=== PATIENT | male | born 1945 | race Caucasian/White ===

== ENCOUNTER 2019-10-09 11:28 | Inpatient (IN) | payer OTHER, MEDICARE, SELFPAY ==
[2019-10-09] VITALS (20 sets, daily range): BP systolic 90–151; BP diastolic 52–82; PULSE 59–89; RESP 11–26; TEMP 37.1–38.8; O2SAT 88–99; BMI 39.9
--- NOTE | 2019-10-09 11:43 | ED_ITS ---
Entered by Eleanor Alvarado, acting as scribe for HPI - General Adult General: Chief complaint: Weakness Stated complaint: weak and sick Time Seen by Provider: 10/09/19 11:43 Source: patient Mode of arrival: ambulatory Limitations: no limitations History of Present Illness: HPI narrative: 74 yo male presents with shortness of breath. pt states this started several days ago. pt states he has had a cough and congestion. pt has had fatigue. pt has a hx of COPD. pt denies any other symptoms at this time. MD complaint: cough, shortness of breath, hx of copd Onset (ago): day(s) Location: chest Radiation: non-radiation Severity: moderate Quality: constant Pain Consistency: constant Relieving factors: none Exacerbating factors: movement and other (cough) Associated symptoms: Reports cough, dyspnea, short of breath, weakness and other (congestion); Deny nausea Treatments prior to arrival: none Review of Systems Const: Reports: fatigue Resp: Reports: shortness of breath, productive cough, wheezing, change in phlegm color and chest congestion GI: Denies: abdominal pain or nausea PFSH ED PFSH: Social History Smoking and tobacco status: former smoker Physical Exam Resp: AUSCULTATION: wheezes and diminished lung sounds Extremity: GENERAL: Yes edema (1 plus bilateral legs) Course Vital Signs: Vital signs: Vital Signs Temperature 98.8 F 10/09/19 11:44 Pulse Rate 69 10/09/19 12:56 Respiratory Rate 20 H 10/09/19 12:56 Blood Pressure 139/69 10/09/19 12:56 Pulse Oximetry 91 10/09/19 12:56 [facility] - General Adult Lab Data: Labs: Lab Results 10/09/19 10/09/19 10/09/19 Range/Units 12:08 12:08 12:20 WBC 11.2 H (4.0-10.0) 10^3/ uL RBC 4.84 (4.1-5.3) 10^6/u L Hgb 14.0 (11.7-16.6) g/dL Hct 42.5 (42.0-52.0) % MCV 87.8 (80-94) fL MCH 28.9 (28.0-34.0) pg MCHC 32.9 (30.0-36.0) g/dL RDW 13.3 (12.1-15.1) % Plt Count 204 (130-400) 10^3/c mm MPV 10.7 H (7.4-10.4) fL Neut % (Auto) 63.8 % Lymph % (Auto) 21.7 % [place] % (Auto) 10.3 % Eos % (Auto) 3.4 % Baso % (Auto) 0.4 % Neut # (Auto) 7.1 (1.8-7.7) 10^3/u L Lymph # (Auto) 2.4 (0.8-4.8) 10^3/u L [place] # (Auto) 1.2 H (0.2-0.9) 10^3/u L Eos # (Auto) 0.4 (0.0-0.8) 10^3/u L Baso # (Auto) 0.0 (0.0-0.1) 10^3/u L Nucleated RBC % (a uto) 0 % Nucleated RBCs # 0.0 /100WBC Specimen Type Arterial Sample Site Radial, right ABG pH 7.42 (7.35-7.45) ABG pCO2 41.8 (35-45) mmHg ABG pO2 59.1 L (80.0-100.0) mmH g ABG HCO3 27.2 H (22-26) mmol/L ABG Base Excess 2.4 H (-2.0-2.0) mmol/ L Jasbir Test Pos Hematocrit 44.0 (42-52) % FiO2 21.0 % Crop Specialist ID drn Sodium 135 L (136-145) mmol/L Potassium 4.0 (3.5-5.1) mmol/L Chloride 94 L (98-107) mmol/L Carbon Dioxide 31 H (22-29) mmol/L Anion Gap 14.0 (5-19) BUN 20 (8-23) mg/dL Creatinine 1.7 H (0.7-1.2) mg/dL Glucose 111 (65-115) mg/dL Calculated Osmolal ity 277 L (285-295) mOsm/k g Lactate (0.5-2.2) mmol/L Calcium 8.7 (8.5-10.5) mg/dL Total Bilirubin 0.8 (0.15-1.2) mg/dL AST 19 (0-40) U/L ALT 16 (0-41) U/L Alkaline Phosphata se 101 (40-130) IU/L NT-Pro-B Natriuret Pep 117 (0-125) pg/mL Total Protein 7.6 (6.6-8.7) g/dL Albumin 3.3 L (3.5-5.2) g/dL Globulin 4.3 (1.3-4.6) g/dL Influenza Type A A g (Negative) POC Influenza B Ag (Negative) 10/09/19 10/09/19 Range/Units 12:29 12:45 WBC (4.0-10.0) 10^3/ uL RBC (4.1-5.3) 10^6/u L Hgb (11.7-16.6) g/dL Hct (42.0-52.0) % MCV (80-94) fL MCH (28.0-34.0) pg MCHC (30.0-36.0) g/dL RDW (12.1-15.1) % Plt Count (130-400) 10^3/c mm MPV (7.4-10.4) fL Neut % (Auto) % Lymph % (Auto) % [place] % (Auto) % Eos % (Auto) % Baso % (Auto) % Neut # (Auto) (1.8-7.7) 10^3/u L Lymph # (Auto) (0.8-4.8) 10^3/u L [place] # (Auto) (0.2-0.9) 10^3/u L Eos # (Auto) (0.0-0.8) 10^3/u L Baso # (Auto) (0.0-0.1) 10^3/u L Nucleated RBC % (a uto) % Nucleated RBCs # /100WBC Specimen Type Sample Site ABG pH (7.35-7.45) ABG pCO2 (35-45) mmHg ABG pO2 (80.0-100.0) mmH g ABG HCO3 (22-26) mmol/L ABG Base Excess (-2.0-2.0) mmol/ L Jasbir Test Hematocrit (42-52) % FiO2 % Crop Specialist ID Sodium (136-145) mmol/L Potassium (3.5-5.1) mmol/L Chloride (98-107) mmol/L Carbon Dioxide (22-29) mmol/L Anion Gap (5-19) BUN (8-23) mg/dL Creatinine (0.7-1.2) mg/dL Glucose (65-115) mg/dL Calculated Osmolal ity (285-295) mOsm/k g Lactate 1.0 (0.5-2.2) mmol/L Calcium (8.5-10.5) mg/dL Total Bilirubin (0.15-1.2) mg/dL AST (0-40) U/L ALT (0-41) U/L Alkaline Phosphata se (40-130) IU/L NT-Pro-B Natriuret Pep (0-125) pg/mL Total Protein (6.6-8.7) g/dL Albumin (3.5-5.2) g/dL Globulin (1.3-4.6) g/dL Influenza Type A A g Negative (Negative) POC Influenza B Ag Negative (Negative) Discharge Plan Discharge Patient Disposition: Home, Self-Care Clinical Impression: Bronchitis Upper respiratory infection Qualifiers: URI type: unspecified URI Qualified Code(s): J06.9 - Acute upper respiratory infection, unspecified Sinusitis Qualifiers: Sinusitis location: other Chronicity: acute Recurrence: non-recurrent Qualified Code(s): J01.80 - Other acute sinusitis Condition: Stable Prescriptions: New Bactrim DS 800-160 mg tablet 1 tab PO DAILY 10 Days Qty: 20 RF: 0 prednisone 10 mg tablets,dose pack See Rx Instructions .ROUTE .COMPLEX Qty: 21 RF: 0 albuterol sulfate 90 mcg/actuation HFA aerosol inhaler 2 inh INHALATION Q6H PRN (Reason: dyspnea) Qty: 8.5 RF: 0 Discharge Orders: Discharge Order (Routine); Ordered 10/09/19 Ordered By: Nick Arceo Referrals: Brandon Rousseau DO [Primary Care Provider] - Coding Level of Care Code ED Shipping Assistant for Chg Fwd Exam Expanded Problem Focused The documentation recorded by the Christiano marie Bridget Annette, accurately reflects the service I personally performed and the decisions made by me, Rita sotelo,Nick Salcedo DO
--- NOTE | 2019-10-09 11:51 | PC.NURSE ---
Pt very short of breath. Coarse crackles and rhonchi noted from a distance. Mask placed on pt.
--- NOTE | 2019-10-09 12:09 | XR_ITS ---
WS: [id number] XR chest 1V portable [id number] REASON FOR EXAM: dyspnea FINDINGS: The cardiac silhouette is not enlarged. A calcified granulomas noted in the left lung base similar to the previous exam June 25, 2019. There is no active pneumonias, pleural effusion fusion, pulmonary edema, or mass effect. The hilum and apices normal. No osseous abnormalities. XR/XR chest 1V portable [id number] IMPRESSION: Negative chest for active pathology.
[2019-10-09 12:35] LABS: Basophils % 0.4 %; Eosinophils # 0.4 10^3/uL (0.0-0.8); Eosinophils % 3.4 %; Hematocrit 42.5 % (42.0-52.0); Lymphocytes # 2.4 10^3/uL (0.8-4.8); Lymphocytes % 21.7 %; Mean Corpuscular HGB Conc 32.9 g/dL (30.0-36.0); Mean Corpuscular Hemoglobin 28.9 pg (28.0-34.0); Mean Corpuscular Volume 87.8 fL (80-94); Mean Platelet Volume 10.7 fL (7.4-10.4); Monocytes # 1.2 10^3/uL (0.2-0.9); Monocytes % 10.3 %; Neutrophils # 7.1 10^3/uL (1.8-7.7); Neutrophils % 63.8 %; Nucleated Red Blood Cells % 0 %; Platelet Count 204 10^3/cmm (130-400); Red Blood Count 4.84 10^6/uL (4.1-5.3); Red Cell Distribution Width 13.3 % (12.1-15.1); White Blood Count 11.2 10^3/uL (4.0-10.0)
[2019-10-09] MEDS: ipratropium-albuterol 3 mL Neb INHALATION ×3 (12:35→20:09)
[2019-10-09] MEDS: sodium chloride 0.9% 500 ML IV (12:42)
[2019-10-09] MEDS: cefTRIAXone 1,000 MG in sodium chloride 0.9% (plus) 50 ML 100 MG IV (12:42)
[2019-10-09 12:51] LABS: ABG PCO2 41.8 mmHg (35-45); ABG PH Result 7.42 (7.35-7.45); Base Excess ABG 2.4 mmol/L (-2.0-2.0); Blood Gas Allen Test Pos; Blood Gas Sample Site Radial, right; Blood Gas Sample Type Arterial; HCO3 ABG 27.2 mmol/L (22-26); PO2 ABG 59.1 mmHg (80.0-100.0)
[2019-10-09 12:57] LABS: Alanine Aminotransferase 16 U/L (0-41); Albumin Level 3.3 g/dL (3.5-5.2); Alkaline Phosphatase 101 IU/L (40-130); Aspartate Amino Transferase 19 U/L (0-40); Blood Urea Nitrogen 20 mg/dL (8-23); Calcium 8.7 mg/dL (8.5-10.5); Carbon Dioxide 31 mmol/L (22-29); Chloride 94 mmol/L (98-107); Globulin 4.3 g/dL (1.3-4.6); Glucose 111 mg/dL (65-115); NT Pro B Type Natriuretic Pept 117 pg/mL (0-125); Osmolality Calculated 277 mOsm/kg (285-295); Sodium 135 mmol/L (136-145); Total Bilirubin 0.8 mg/dL (0.15-1.2); Total Protein 7.6 g/dL (6.6-8.7)
[2019-10-09 13:18] LABS: Influenza A by IFA Negative (Negative); Influenza B by IFA Negative (Negative)
[2019-10-09] MEDS: azithromycin 500 MG in sodium chloride 0.9% 250 ML 250 MG IV (17:08)
--- NOTE | 2019-10-09 17:50 | CTR_ITS ---
PROCEDURE INFORMATION: Exam: CT Chest Without Contrast Exam date and time: 10/09/2019 5:54 PM Age: 74 years old Clinical indication: Shortness of breath and other: Hypoxia; Patient HX: H/o copd; Additional info: Ill appearing, productive cough, hypoxia, SOB TECHNIQUE: Imaging protocol: Computed tomography of the chest without contrast. Total DLP: 1112.72 mGy-cm Radiation optimization: All CT scans at this facility use at least one of these dose optimization techniques: automated exposure control; mA and/or kV adjustment per patient size (includes targeted exams where dose is matched to clinical indication); or iterative reconstruction. COMPARISON: CR XR chest 1V portable [id number] 10/09/2019 12:13 PM FINDINGS: Lungs: Small volume subsegmental patchy ground-glass interstitial lung disease bilaterally with involvement of the posterior segment right upper lobe, bilateral lower lobes, and less significant involvement right middle lobe. Left upper lobe and lingula spared. Rare bullous/bleb to include a thin walled bulla right middle lobe maximum diameter 15 mm with the appearance of chronic infection. Mild peripheral acinar emphysema. Pleural space: No visible pleural effusion or active pleural based disease. Heart: Three-vessel coronary artery disease. Mediastinum: Calcified granulomas most likely from antecedent histoplasmosis. Numerous calcified hilar complexes. 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 Aorta: The thoracic aorta is nonaneurysmal. Moderate arterial sclerotic disease. Lymph nodes: No visible axillary lymphadenopathy. No grossly visible mediastinal or hilar lymphadenopathy although limited assessment due to the lack of intravenous contrast. Liver: Single simple appearing left hepatic lobe cyst. Rare hepatic calcified granuloma. Spleen: Upper abdominal structures within the field of view without visible evidence of active pathologic process. Rare splenic calcified granuloma. Bones/joints: Age-appropriate degenerative changes of the spine. No visible osteolytic or osteoblastic destructive process. Soft tissues: Unremarkable. CT/CT chest wo con [id number] IMPRESSION: 1. Findings consistent with acute usual interstitial pneumonitis involving sub segments of the posterior segment right upper lobe, bilateral lower lobes, and minimal involvement right middle lobe as detailed in text above. 2. Antecedent granulomatous disease. 3. Rare bullous/bleb. 4. Mild peripheral acinar emphysema. 5. Three vessel coronary artery disease. 6. Other chronic and age related findings detailed in text above. Radiation Dose CTDIVOL = (mGy): DLP = 1112.72 (mGy-cm)
--- NOTE | 2019-10-09 17:59 | PM.HP ---
Providers/Chief Complaint Admitting Physician: Haylee Cain MD Primary Care Provider: Brandon Rousseau DO Chief Complaint: productive cough, SOB History of Present Illness Henri Yanes is a 74 year old male with PMHx of COPD, HTN, CAD, Hyperlipidemia, Chronic low back pain; presents from home for evaluation of ongoing productive cough with thick yellow sputum, malaise, hoarseness of voice and shortness of breath. He is not oxygen dependent at baseline. Is a former smoker, quit smoking in 1982. Has a known history of COPD and states that he has some element of chronic productive cough at baseline. He is unsure if the frequency of his cough or sputum production has increased in the past several days but overall he has been feeling quite unwell. He denies having any fever/chills, sick contacts, recent travel including contact with known COVID-19. On initial evaluation in the ER plan was for discharge but patient is quite ill-appearing, has noted hypoxia on ABG, mild leukocytosis and following my examination was noted to have fever of 101.8 F. He is audibly wheezing and coarse throughout on auscultation. He is quite uncomfortable and constantly repositioning on the stretcher. He is very hoarse though he states that this is his baseline. Hoarseness of voice limits history taking; some collateral information obtained from review of medical record though he has not had much in the way of work-up or visits to our facility in the past. He follows up with [facility]. [facility] [place] [facility]. He had an echo done in 06/2018 showing an ejection fraction of 45 to 50% with global left ventricular hypokinesis. He had a negative stress test done in April 2019. While in the ER he received nebulizer treatment, ceftriaxone, azithromycin and 500 mL fluid bolus. Most recent blood pressure during my history taking is 96/55 with a MAP of 68; he has recently voided and his urine is very concentrated so given clinical picture will give an additional 500 mL normal saline bolus. I will also order a CT scan of the chest for further evaluation given ill appearance, high suspicion for respiratory infection; chest x-ray is unremarkable per radiology report. Most recent vital signs and overall clinical picture he meets criteria for sepsis as evidenced by fever, hypoxia, tachypnea. Lactic acid is 1.0, will check prolactin. Influenza screen is negative. Review of Systems General: Reports: other (difficult to obtain due to patient's hoarseness of voice) Const: Reports: change in appetite (decreased appetite), fatigue and malaise; Denies: fever or chills Eyes: Denies: change in vision ENMT: Reports: hoarseness, dry mouth and other; Denies: painful swallowing Card: Denies: chest pain, swelling of feet/ankles or lightheadedness Resp: Reports: productive cough (thick yellow sputum), wheezing and chest congestion; Denies: shortness of breath, stridor or coughing up blood GI: Denies: abdominal pain, nausea or vomiting Musc: Denies: back pain Skin/Breast: Denies: rash Medications/Allergies Home Medications Medication Instructions Recorded Confirmed Last Taken Type albuterol sulfate 2 puff INHALATION QID PRN 10/09/19 10/09/19 Unknown History albuterol sulfate 2.5 mg INHALATION Q6H PRN 10/09/19 10/09/19 Unknown History amlodipine [Norvasc] 10 mg PO DAILY 10/09/19 10/09/19 Unknown History aspirin 81 mg PO DAILY 10/09/19 10/09/19 Unknown History clonidine HCl 0.2 mg PO BEDTIME 10/09/19 10/09/19 Unknown History gabapentin 600 mg PO BEDTIME 10/09/19 10/09/19 Unknown History hydrochlorothiazide 50 mg PO DAILY 10/09/19 10/09/19 Unknown History losartan 100 mg PO DAILY 10/09/19 10/09/19 Unknown History multivitamin [Multiple Vitamins] 1 tab PO DAILY 10/09/19 10/09/19 Unknown History omeprazole 20 mg PO DAILY 10/09/19 10/09/19 Unknown History oxycodone 5 mg PO Q6H PRN 10/09/19 10/09/19 Unknown History potassium chloride 30 meq PO DAILY 10/09/19 10/09/19 Unknown History pravastatin 40 mg PO QPM 10/09/19 10/09/19 Unknown History sildenafil See Rx Instructions .ROUTE .COMPLEX 10/09/19 10/09/19 Unknown History Allergies Allergy/AdvReac Type Severity Reaction Status Date / Time lisinopril Allergy Unknown Unknown Verified 10/09/19 14:30 niacin Allergy Unknown Unknown Verified 10/09/19 14:30 PFSH Acute PFSH: Medical History CAD (coronary artery disease) Chronic back pain COPD (chronic obstructive pulmonary disease) GERD (gastroesophageal reflux disease) HTN (hypertension) Hyperlipidemia Morbid obesity Social History Smoking and tobacco status: former smoker Quit status (tobacco): has quit using tobacco Year quit tobacco: 1982 Lives independently: Yes Vitals/I&O/Wt Last Vital Signs Temp 98.8 F 10/09/19 11:44 Pulse 78 10/09/19 17:28 Resp 15 10/09/19 17:28 BP 125/75 10/09/19 17:28 Pulse Ox 97 10/09/19 17:28 10/09/19 10/09/19 10/09/19 06:59 14:59 22:59 Intake Total 50 / 50 Balance 50 / 50 Weight last 48 hrs Weight 122.47 kg Physical Exam Const: COMMON NORMALS: no apparent distress and oriented x3 GENERAL APPEARANCE: cooperative and ill appearing; not comfortable (continuously shifting on stretcher) NUTRITIONAL APPEARANCE: obese morbidly obese ORIENTATION/CONSCIOUSNESS: Yes awake HENMT: COMMON NORMALS: normocephalic, head/scalp atraumatic and hearing grossly normal bilaterally HEAD & SCALP: normocephalic and atraumatic MOUTH: other (very hoarse voice) Eye: COMMON NORMALS: PERRL, EOMs intact bilaterally and conjunctivae normal CONJUNCTIVA: Yes conjunctivae normal PUPIL: Yes PERRL Neck/C-Spine: COMMON NORMALS: full ROM GENERAL: Yes normal visual inspection and Yes trachea midline Resp: COMMON NORMALS: normal respiratory effort, no retractions, no use of accessory muscles and clear to auscultation bilaterally EFFORT & INSPECTION: Yes able to speak in complete sentences, Yes symmetric chest movement, No tachypneic, Yes actively coughing productive (thick yellow sputum ) and hoarse and No tripod positioning AUSCULTATION: rhonchi throughout and wheezes (audible) Cardio: COMMON NORMALS: regular rate, regular rhythm, S1 normal heart sound, S2 normal heart sound and no murmurs RATE: regular rate RHYTHM: regular rhythm HEART SOUNDS: S1 normal and S2 normal GI: COMMON NORMALS: normal to inspection, nondistended, normoactive bowel sounds, soft to palpation and non-tender INSPECTION: Yes central obesity PALPATION: Yes soft Back/Pelvis: COMMON NORMALS: thoracic and lumbar spine normal to inspection Extremity: COMMON NORMALS: normal to inspection, full ROM and no clubbing, cyanosis or edema; negative for no pedal edema Neuro: COMMON NORMALS: oriented x3, moves all extremities, no focal motor deficits and no sensory deficits noted Psych: COMMON NORMALS: mental status grossly normal, thought process normal, cooperative, affect normal and speech normal SPEECH: Yes normal speech THOUGHT PROCESS: normal thought process Skin: COMMON NORMALS: no rashes or lesions noted, no jaundice, no petechiae and no mottling GENERAL SKIN EXAM: no rashes or lesions noted Sepsis: Is patient septic: No Focused sepsis exam performed: Yes Date exam was performed: 10/09/19 Time exam was performed: 18:14 Data : 10/09/19 12:08 10/09/19 12:08 Micro: Microbiology 10/09/19 12:32 Blood Culture - Preliminary Blood SPECIMEN COLLECTED 10/09/19 12:29 Blood Culture - Preliminary Blood SPECIMEN COLLECTED A&P Assessment and plan (1) Upper respiratory infection: -very hoarse voice clinically, quite ill appearing -CXR noted, negative, will order CT chest for further evaluation given ill appearance, SOB, hypoxia on ABG -received dose of Ceftriaxone and Azithromycin, continue dual treatment for now -f/u blood cx, sputum culture -negative influenza screen, order bacterial antigens, Legionella -denies sick contacts, recent travel, contact with known COVID-19 so no further testing at this time -associated sepsis given fever, hypoxia, ill appearance, tachypnea -close monitoring of respiratory status, supplemental oxygen as needed Status: Acute Qualifiers: URI type: unspecified URI Qualified Code(s): J06.9 - Acute upper respiratory infection, unspecified Code(s): J06.9 - Acute upper respiratory infection, unspecified (2) COPD (chronic obstructive pulmonary disease): -acute COPD exacerbation related to URI as noted above -add steroids, Duonebs PRN - Status: Acute Qualifiers: COPD type: COPD with acute exacerbation Qualified Code(s): J44.1 - Chronic obstructive pulmonary disease with (acute) exacerbation Code(s): J44.9 - Chronic obstructive pulmonary disease, unspecified (3) Chronic back pain: -per med list, is on chronic oxycodone, resume this Status: Acute Qualifiers: Back pain location: low back pain Back pain laterality: unspecified Sciatica presence: unspecified whether sciatica present Qualified Code(s): M54.5 - Low back pain; G89.29 - Other chronic pain Code(s): M54.9 - Dorsalgia, unspecified; G89.29 - Other chronic pain (4) HTN (hypertension): -currently normotensive, borderline low BP in ED, received 500 mL bolus, gave additional 500 mL bolus -continue to monitor vital signs -continue gentle hydration Status: Acute Qualifiers: Hypertension type: essential hypertension Qualified Code(s): I10 - Essential (primary) hypertension Code(s): I10 - Essential (primary) hypertension (5) CAD (coronary artery disease): -has hx of CAD, resume statin, ASA Status: Acute Qualifiers: Coronary Disease-Associated Artery/Lesion type: [place] artery [place] vs. transplanted heart: [place] heart Associated angina: without angina Qualified Code(s): I25.10 - Atherosclerotic heart disease of [place] coronary artery without angina pectoris Code(s): I25.10 - Atherosclerotic heart disease of [place] coronary artery without angina pectoris (6) Hyperlipidemia: -resume statin Status: Acute Qualifiers: Hyperlipidemia type: unspecified Qualified Code(s): E78.5 - Hyperlipidemia, unspecified Code(s): E78.5 - Hyperlipidemia, unspecified (7) Morbid obesity: -BMI-40 kg/m2 Status: Acute Code(s): E66.01 - Morbid (severe) obesity due to excess calories Additional A&P Information -hx of chronic systolic CHF; Echo (06/2018): EF=45-50%, global LV hypokinesis, trace MR, trace TR, trace MS; monitor for fluid overload with IV hydration -former smoker; quit >30 yrs ago -DAMIÁN on CKD unknown stage; unknown baseline Cr but available labs on record indicate prior Cr of 1.6; continue to monitor renal function, hold diuretics, ARB -GERD, resume PPI -cardiac diet as tolerated -fall precautions, PT evaluation -GI ppx with PPI -DVT ppx with heparin -Dispo: home, lives alone -Code status: FULL code Attestations Medical Necessity Statement*: Henri Gonzalez Yanes's hospital stay will require greater than 2 midnights for treatment of upper respiratory infection with associated acute COPD exacerbation and sepsis requiring IV antibiotic treatment, close monitoring of hemodynamic and respiratory status. Time Spent in Patient Care: Greater than 35 minutes (>than 50% of time spent in counselling and/or direct pt care on unit). Coding Level of Care Code Acute Ground Control Approach Technician for Vitaliy Fwd Diagnoses Upper respiratory infection J06.9 URI type: unspecified URI COPD (chronic obstructive pulmonary disease) J44.1 COPD type: COPD with acute exacerbation Chronic back pain M54.5; G89.29 Back pain location: low back pain Back pain laterality: unspecified Sciatica presence: unspecified whether sciatica present HTN (hypertension) I10 Hypertension type: essential hypertension CAD (coronary artery disease) I25.10 Coronary Disease-Associated Artery/Lesion type: [place] artery [place] vs. transplanted heart: [place] heart Associated angina: without angina Hyperlipidemia E78.5 Hyperlipidemia type: unspecified Morbid obesity E66.01 Sepsis Event Note Evaluation Current stage of sepsis: sepsis Possible source: pulmonary Focused Exam Vital Signs Temp Pulse Pulse Resp BP Pulse Ox 10/09/19 18:00 101.8 F H 81 19 H 113/76 88 L 10/09/19 17:28 78 15 125/75 97 10/09/19 14:48 64 18 151/82 91 10/09/19 14:00 91 10/09/19 12:56 69 20 H 139/69 91 10/09/19 12:38 64 10/09/19 12:29 62 18 94 10/09/19 12:11 20 H 93 10/09/19 11:44 98.8 F 67 20 H 93 Respiratory exam: Present rhonchi and wheezes Cardiovascular exam: Present RRR, S1 and S2 Capillary refill: < 3 Seconds Skin exam: normal turgor Date exam was performed: 10/09/19 Time exam was performed: 18:16
[2019-10-09 18:43] LABS: Procalcitonin 0.12 ng/mL (0-0.5)
--- NOTE | 2019-10-09 19:30 | PC.RESP ---
Pt is refusing to wear HHF NC at this time. Pt states I cannot tolerate the blowing in my nose. RN notified.
[2019-10-09] MEDS: heparin 5,000 unit/mL INJ 1 mL 5000 UNIT SUBCUT (20:16)
[2019-10-09] MEDS: sodium chloride 0.9% 1,000 ML 75 ML IV (20:18)
[2019-10-09] MEDS: guaiFENesin 600 mg Tablet PO (20:19)
[2019-10-09] MEDS: sodium chloride 0.9% 1,000 ML 100 ML IV (20:30)
[2019-10-09] MEDS: cloNIDine 0.1 mg Tablet 0.2 MG PO (21:05)
[2019-10-09] MEDS: atorvastatin 40 mg Tablet 20 MG PO (21:05)
[2019-10-09] MEDS: acetaminophen 325 mg Tablet 650 MG PO (21:16)
[2019-10-10] VITALS (20 sets, daily range): BP systolic 91–121; BP diastolic 56–74; PULSE 43–778; RESP 14–22; TEMP 36.5–36.9; O2SAT 91–100
[2019-10-10 04:51] LABS: Basophils % 0.1 %; Hematocrit 41.7 % (42.0-52.0); Hemoglobin 13.6 g/dL (11.7-16.6); Lymphocytes # 1.1 10^3/uL (0.8-4.8); Lymphocytes % 8.3 %; Mean Corpuscular HGB Conc 32.6 g/dL (30.0-36.0); Mean Corpuscular Hemoglobin 28.2 pg (28.0-34.0); Mean Corpuscular Volume 86.5 fL (80-94); Monocytes # 0.3 10^3/uL (0.2-0.9); Monocytes % 2.2 %; Neutrophils # 11.4 10^3/uL (1.8-7.7); Neutrophils % 88.9 %; Nucleated Red Blood Cells % 0 %; Platelet Count 206 10^3/cmm (130-400); Red Blood Count 4.82 10^6/uL (4.1-5.3); Red Cell Distribution Width 13.2 % (12.1-15.1); White Blood Count 12.8 10^3/uL (4.0-10.0)
[2019-10-10 05:10] LABS: Anion Gap 17.1 (5-19); Blood Urea Nitrogen 21 mg/dL (8-23); Calcium 8.3 mg/dL (8.5-10.5); Carbon Dioxide 25 mmol/L (22-29); Chloride 96 mmol/L (98-107); Glucose 212 mg/dL (65-115); Osmolality Calculated 281 mOsm/kg (285-295); Potassium 4.1 mmol/L (3.5-5.1); Sodium 134 mmol/L (136-145)
[2019-10-10] MEDS: aspirin 81 mg Chew Tablet PO (08:40)
[2019-10-10] MEDS: sodium chloride 0.9% 1,000 ML 75 ML IV (08:40)
[2019-10-10] MEDS: guaiFENesin 600 mg Tablet PO ×2 (08:40→18:25)
[2019-10-10] MEDS: multivitamin therapeutic Tablet 1 TAB PO (08:40)
[2019-10-10] MEDS: pantoprazole DR 40 mg Tablet PO (08:40)
[2019-10-10] MEDS: heparin 5,000 unit/mL INJ 1 mL 5000 UNIT SUBCUT ×2 (08:41→21:00)
[2019-10-10] MEDS: ipratropium-albuterol 3 mL Neb INHALATION ×3 (09:46→20:04)
[2019-10-10 12:23] LABS: Add Urine Microscopic? NO
[2019-10-10 12:34] LABS: Bilirubin Urine Neg (NEGATIVE); Blood Urine Neg (Negative); Glucose Urine UA Norm (Normal); Ketones Urine Negative (Negative); Leukocyte Esterase Urine Negative (Negative); Nitrate Urine Negative (Negative); Protein Urine Neg (Negative); Urine Appearance Clear (CLEAR); Urine Color Dark Yellow (Yellow); Urobilinogen Urine Norm (Negative); pH Urine 5 (5-7)
[2019-10-10] MEDS: cefTRIAXone 1,000 MG in sodium chloride 0.9% (plus) 50 ML 100 MG IV (12:46)
--- NOTE | 2019-10-10 13:25 | P.PN_ITS ---
Subjective Subjective: Interval history: Seems to be more stable today in terms of hemodynamics and respiratory status. Currently on RA, afebrile. Required 1:1 sitter due to inability to self maintain oxygen, confusion, high fall risk. Patient seen and examined twice today, more awake this afternoon, still quite hoarse and coarse on auscultation but less ill appearing, is alert and oriented, converse appropriately. Does not remember my visit earlier in the day. Medications: Reviewed: Yes Medication Review Details: Active Medications Generic Name Dose Route Start Last Admin Trade Name Freq PRN Reason Stop Dose Admin Acetaminophen 650 mg 10/09/19 15:57 10/09/19 21:16 Tylenol PO 650 mg Q6H PRN Administration Mild/Mod Pain Or Temp >/= 101 Albuterol/Ipratrop ium 3 ml 10/09/19 21:00 Duoneb INHALATION Q6H.RESPIRATORY P RN SHORTNESS OF KEVIN TH Albuterol/Ipratrop ium 3 ml 10/09/19 16:00 10/10/19 13:09 Duoneb INHALATION Not Given QID.RESPIRATORY S CH Aspirin 81 mg 10/10/19 09:00 10/10/19 08:40 Aspirin Chewable PO 81 mg DAILY KEO Administration Atorvastatin Calci um 20 mg 10/09/19 21:00 10/09/19 21:05 Lipitor PO 20 mg BEDTIME KEO Administration Benzocaine 1 each 10/09/19 18:28 Cepacol MUCOUS MEM Q2H PRN SORE THROAT Benzonatate 100 mg 10/09/19 18:28 Tessalon Pearls PO TID PRN COUGH Clonidine HCl 0.2 mg 10/09/19 21:00 10/09/19 21:05 Catapres PO 0.2 mg BEDTIME KEO Administration Guaifenesin 600 mg 10/09/19 18:28 10/10/19 08:40 Mucinex PO 600 mg BID KEO Administration Heparin Sodium (Be ef Lung) 5,000 unit 10/09/19 18:28 10/10/19 08:41 Heparin SUBCUT 5,000 unit Q12H KEO Administration Azithromycin 500 m g/ Sodium 250 mls @ 250 mls /hr 10/09/19 17:15 10/09/19 18:10 Chloride IV Infused Q24H KEO Infusion Protocol Sodium Chloride 1,000 mls @ 75 ml s/hr 10/09/19 18:28 10/10/19 08:40 Sodium Chloride 0.9% IV 75 mls/hr .[id number] KEO Administration Ceftriaxone Sodium 1,000 mg/ 50 mls @ 100 mls/ hr 10/10/19 12:45 10/10/19 12:46 Sodium Chloride IV 100 mls/hr Q24H KEO Administration Protocol Methylprednisolone Sodium Succinate 60 mg 10/09/19 18:30 10/10/19 12:46 Solu-Medrol IVP 60 mg Q6H KEO Administration Morphine Sulfate 2 mg 10/09/19 18:28 Morphine IVP Q4H PRN SEVERE PAIN Multivitamins Ther apeutic 1 tab 10/10/19 09:00 10/10/19 08:40 Multivitamin Tab PO 1 tab DAILY KEO Administration Ondansetron HCl 4 mg 10/09/19 15:57 Zofran IVP Q6H PRN NAUSEA AND VOMITI NG Oxycodone HCl 5 mg 10/09/19 18:28 Oxycodone Ir PO Q6H PRN Pain Pantoprazole [place] m 40 mg 10/10/19 09:00 10/10/19 08:40 Protonix PO 40 mg DAILY KEO Administration Potassium Chloride 30 meq 10/10/19 09:00 10/10/19 08:40 Klor-Con 10 PO 30 meq DAILY KEO Administration lisinopril Allergy (Unknown, Verified 10/09/19 14:30) Unknown niacin Allergy (Unknown, Verified 10/09/19 14:30) Unknown Vitals/I&O/Wt Last Vital Signs Temp 98.4 F 10/10/19 08:00 Pulse 63 10/10/19 12:00 Resp 20 H 10/10/19 12:00 BP 115/74 10/10/19 10:00 Pulse Ox 98 10/10/19 12:00 10/09/19 10/10/19 10/10/19 22:59 06:59 14:59 Intake Total 490 / 1040 1000 / 2040 1647.5 / 1647.5 Output Total 350 / 350 Balance 490 / 1040 1000 / 2040 1297.5 / 1297.5 Weight last 48 hrs Weight 122.47 kg Physical Exam Const: COMMON NORMALS: no apparent distress and oriented x3 GENERAL APPEARANCE: cooperative, comfortable and ill appearing (less so today) NUTRITIONAL APPEARANCE: obese morbidly obese ORIENTATION/CONSCIOUSNESS: Yes awake HENMT: COMMON NORMALS: normocephalic, head/scalp atraumatic and hearing grossly normal bilaterally HEAD & SCALP: normocephalic and atraumatic MOUTH: other (very hoarse voice) Eye: COMMON NORMALS: PERRL, EOMs intact bilaterally and conjunctivae normal CONJUNCTIVA: Yes conjunctivae normal PUPIL: Yes PERRL Neck/C-Spine: COMMON NORMALS: full ROM GENERAL: Yes normal visual inspection and Yes trachea midline Resp: COMMON NORMALS: normal respiratory effort, no retractions and no use of accessory muscles EFFORT & INSPECTION: Yes able to speak in complete sentences, Yes symmetric chest movement, No tachypneic, Yes actively coughing productive (thick yellow sputum ) and hoarse and No tripod positioning AUSCULTATION: rhonchi throughout and wheezes (audible) OTHER: -on RA, saturating at 97% Cardio: COMMON NORMALS: regular rate, regular rhythm, S1 normal heart sound, S2 normal heart sound and no murmurs RATE: regular rate RHYTHM: regular rhythm HEART SOUNDS: S1 normal and S2 normal GI: COMMON NORMALS: normal to inspection, nondistended, normoactive bowel sounds, soft to palpation and non-tender INSPECTION: Yes central obesity PALPATION: Yes soft Back/Pelvis: COMMON NORMALS: thoracic and lumbar spine normal to inspection Extremity: COMMON NORMALS: normal to inspection, full ROM and no clubbing, cyanosis or edema; negative for no pedal edema Neuro: COMMON NORMALS: oriented x3, moves all extremities, no focal motor deficits and no sensory deficits noted Psych: COMMON NORMALS: mental status grossly normal, thought process normal, cooperative, affect normal and speech normal SPEECH: Yes normal speech TH OUGHT PROCESS: normal thought process Skin: COMMON NORMALS: no rashes or lesions noted, no jaundice, no petechiae and no mottling GENERAL SKIN EXAM: no rashes or lesions noted Data : 10/10/19 04:15 10/10/19 04:15 Micro: Microbiology 10/09/19 12:32 Blood Culture - Preliminary Blood NEGATIVE TO DATE 10/09/19 12:29 Blood Culture - Preliminary Blood NEGATIVE TO DATE 10/09/19 20:07 Gram Stain - Final Sputum - Expectorated Sputum A&P Assessment and plan (1) Upper respiratory infection: -very hoarse voice clinically, quite ill appearing -CXR noted, negative, CT chest done showing bilateral pneumonitis in background of emphysema -continue Ceftriaxone and Azithromycin -blood cx: prelim negative -sputum culture pending, gram stain growing GPC and GPRs -negative influenza screen, pending bacterial antigens, Legionella -denies sick contacts, recent travel, contact with known COVID-19 so no further testing at this time -associated sepsis given fever, hypoxia, ill appearance, tachypnea -close monitoring of respiratory status, supplemental oxygen as needed Status: Acute Qualifiers: URI type: unspecified URI Qualified Code(s): J06.9 - Acute upper respiratory infection, unspecified Code(s): J06.9 - Acute upper respiratory infection, unspecified (2) COPD (chronic obstructive pulmonary disease): -acute COPD exacerbation related to bilateral pneumonitis as noted above -on steroids, Duonebs PRN Status: Acute Qualifiers: COPD type: COPD with acute exacerbation Qualified Code(s): J44.1 - Chronic obstructive pulmonary disease with (acute) exacerbation Code(s): J44.9 - Chronic obstructive pulmonary disease, unspecified (3) Chronic back pain: -per med list, is on chronic oxycodone Status: Acute Qualifiers: Back pain laterality: unspecified Back pain location: low back pain Sciatica presence: unspecified whether sciatica present Qualified Code(s): M54.5 - Low back pain; G89.29 - Other chronic pain Code(s): M54.9 - Dorsalgia, unspecified; G89.29 - Other chronic pain (4) HTN (hypertension): -currently normotensive, borderline low BP in ED, received 500 mL bolus, gave additional 500 mL bolus -continue to monitor vital signs -continue gentle hydration Status: Acute Qualifiers: Hypertension type: essential hypertension Qualified Code(s): I10 - Essential (primary) hypertension Code(s): I10 - Essential (primary) hypertension (5) CAD (coronary artery disease): -has hx of CAD, continue statin, ASA Status: Acute Qualifiers: Associated angina: without angina Coronary Disease-Associated Artery/Lesion type: [place] artery [place] vs. transplanted heart: [place] heart Qualified Code(s): I25.10 - Atherosclerotic heart disease of [place] coronary artery without angina pectoris Code(s): I25.10 - Atherosclerotic heart disease of [place] coronary artery without angina pectoris (6) Hyperlipidemia: -continue statin Status: Acute Qualifiers: Hyperlipidemia type: unspecified Qualified Code(s): E78.5 - Hyperlipidemia, unspecified Code(s): E78.5 - Hyperlipidemia, unspecified (7) Morbid obesity: -BMI-40 kg/m2 Status: Acute Code(s): E66.01 - Morbid (severe) obesity due to excess calories Additional A&P Information -hx of chronic systolic CHF; Echo (06/2018): EF=45-50%, global LV hypokinesis, trace MR, trace TR, trace [place]; monitor for fluid overload with IV hydration -former smoker; quit >30 yrs ago -DAMIÁN on CKD unknown stage; unknown baseline Cr but available labs on record indicate prior Cr of 1.6; continue to monitor renal function, hold diuretics, ARB -GERD, on PPI -Altered mental status; requiring 1:1 monitoring -cardiac diet as tolerated -fall precautions, PT evaluation appreciated; HEP recommended -GI ppx with PPI -DVT ppx with heparin -Dispo: home, lives alone -Code status: FULL code -continue ICU care due to need for close monitoring of hemodynamic and respiratory status Attestations Medical Necessity Statement*: Patient requires hospitalization for continued management of bilateral pneumonitis, acute COPD exacerbation and noted altered mental status; on IV antibiotics and IV steroids with need for continued m onitoring of hemodynamic and respiratory status. Time Spent in Patient Care: Greater than 35 minutes (>than 50% of time spent in counselling and/or direct pt care on unit) . Coding Level of Care Code Acute Staff Genetic Counselor for [facility] Fwd Exam Comprehensive Diagnoses Upper respiratory infection J06.9 URI type: unspecified URI COPD (chronic obstructive pulmonary disease) J44.1 COPD type: COPD with acute exacerbation Chronic back pain M54.5; G89.29 Back pain laterality: unspecified Back pain location: low back pain Sciatica presence: unspecified whether sciatica present HTN (hypertension) I10 Hypertension type: essential hypertension CAD (coronary artery disease) I25.10 Associated angina: without angina Coronary Disease-Associated Artery/Lesion type: [place] artery [place] vs. transplanted heart: [place] heart Hyperlipidemia E78.5 Hyperlipidemia type: unspecified Morbid obesity E66.01
--- NOTE | 2019-10-10 15:32 | PC.OT ---
OT note: Pt completed OT screening. He was able to complete bed mobility, donning and doffing socks, washing hands standing at sink and got back into bed without physical assistance. Verbal cues provided and education regarding keeping wrist bands and IV on as pt asked are you going to take these off? Pt with some confusion but oriented to self and able to follow 1 step directions. Discussed with RN who reported pt's reported the patient often gets confused when he gets sick. No further OT recommended at this time.
[2019-10-10] MEDS: azithromycin 500 MG in sodium chloride 0.9% 250 ML 250 MG IV (18:24)
[2019-10-10] MEDS: cloNIDine 0.1 mg Tablet 0.2 MG PO (21:01)
[2019-10-10] MEDS: atorvastatin 40 mg Tablet 20 MG PO (21:01)
[2019-10-10] MEDS: oxyCODONE 5 mg IR Tab/Cap PO (21:05)
[2019-10-11] VITALS (19 sets, daily range): BP systolic 98–147; BP diastolic 54–80; PULSE 51–90; RESP 14–20; TEMP 36.2–36.6; O2SAT 95–100
[2019-10-11] MEDS: sodium chloride 0.9% 1,000 ML 75 ML IV (00:36)
[2019-10-11] MEDS: gabapentin 300 mg Capsule 600 MG PO ×2 (00:36→21:58)
--- NOTE | 2019-10-11 00:55 | PC.NURSE ---
Pt requesting his home gabapentin dose for sleep. Reports he does not sleep without it. Pt has been alert and oriented x4. Telephone orders received from Dr. Pérez to resume home med.
[2019-10-11 04:41] LABS: Basophils % 0.1 %; Hematocrit 37.8 % (42.0-52.0); Hemoglobin 12.4 g/dL (11.7-16.6); Lymphocytes # 1.3 10^3/uL (0.8-4.8); Lymphocytes % 7.3 %; Mean Corpuscular HGB Conc 32.8 g/dL (30.0-36.0); Mean Corpuscular Hemoglobin 28.5 pg (28.0-34.0); Mean Corpuscular Volume 86.9 fL (80-94); Mean Platelet Volume 11.2 fL (7.4-10.4); Monocytes # 0.6 10^3/uL (0.2-0.9); Monocytes % 3.4 %; Neutrophils % 88.6 %; Nucleated Red Blood Cells % 0 %; Platelet Count 209 10^3/cmm (130-400); Red Blood Count 4.35 10^6/uL (4.1-5.3); Red Cell Distribution Width 12.9 % (12.1-15.1)
[2019-10-11 05:04] LABS: Blood Urea Nitrogen 35 mg/dL (8-23); Calcium 8.7 mg/dL (8.5-10.5); Carbon Dioxide 23 mmol/L (22-29); Chloride 100 mmol/L (98-107); Glucose 221 mg/dL (65-115); Osmolality Calculated 286 mOsm/kg (285-295); Sodium 136 mmol/L (136-145)
[2019-10-11] MEDS: guaiFENesin 600 mg Tablet PO ×2 (08:45→17:56)
[2019-10-11] MEDS: aspirin 81 mg Chew Tablet PO (08:45)
[2019-10-11] MEDS: multivitamin therapeutic Tablet 1 TAB PO (08:45)
[2019-10-11] MEDS: heparin 5,000 unit/mL INJ 1 mL 5000 UNIT SUBCUT ×2 (08:46→22:00)
[2019-10-11] MEDS: pantoprazole DR 40 mg Tablet PO (08:46)
[2019-10-11] MEDS: ipratropium-albuterol 3 mL Neb INHALATION ×4 (08:55→21:08)
--- NOTE | 2019-10-11 10:06 | P.PN_ITS ---
Subjective Subjective: Interval history: Has been afebrile, hemodynamically stable, had 450 mL urine output overnight. Noted increased leukocytosis which is likely steroid induced. On RA currently. Remains hoarse but is alert, oriented x 3, answers questions appropriately. Discussed disposition and he would like to go to rehab, case management working on this. Will transfer to floor for continued care. Medications: Reviewed: Yes Medication Review Details: Active Medications Generic Name Dose Route Start Last Admin Trade Name Freq PRN Reason Stop Dose Admin Acetaminophen 650 mg 10/09/19 15:57 10/09/19 21:16 Tylenol PO 650 mg Q6H PRN Administration Mild/Mod Pain Or Temp >/= 101 Albuterol/Ipratrop ium 3 ml 10/09/19 21:00 Duoneb INHALATION Q6H.RESPIRATORY P RN SHORTNESS OF KEVIN TH Albuterol/Ipratrop ium 3 ml 10/09/19 16:00 10/11/19 08:55 Duoneb INHALATION 3 ml QID.RESPIRATORY S CH Administration Aspirin 81 mg 10/10/19 09:00 10/11/19 08:45 Aspirin Chewable PO 81 mg DAILY KEO Administration Atorvastatin Calci um 20 mg 10/09/19 21:00 10/10/19 21:01 Lipitor PO 20 mg BEDTIME KEO Administration Benzocaine 1 each 10/09/19 18:28 Cepacol MUCOUS MEM Q2H PRN SORE THROAT Benzonatate 100 mg 10/09/19 18:28 Tessalon Pearls PO TID PRN COUGH Clonidine HCl 0.2 mg 10/09/19 21:00 10/10/19 21:01 Catapres PO 0.2 mg BEDTIME KEO Administration Gabapentin 600 mg 10/11/19 00:30 10/11/19 00:36 Neurontin PO 600 mg BEDTIME KEO Administration Guaifenesin 600 mg 10/09/19 18:28 10/11/19 08:45 Mucinex PO 600 mg BID KEO Administration Heparin Sodium (Be ef Lung) 5,000 unit 10/09/19 18:28 10/11/19 08:46 Heparin SUBCUT 5,000 unit Q12H KEO Administration Azithromycin 500 m g/ Sodium 250 mls @ 250 mls /hr 10/09/19 17:15 10/10/19 19:24 Chloride IV Infused Q24H KEO Infusion Protocol Sodium Chloride 1,000 mls @ 75 ml s/hr 10/09/19 18:28 10/11/19 00:36 Sodium Chloride 0.9% IV 75 mls/hr .[id number] KEO Administration Ceftriaxone Sodium 1,000 mg/ 50 mls @ 100 mls/ hr 10/10/19 12:45 10/10/19 12:46 Sodium Chloride IV 100 mls/hr Q24H KEO Administration Protocol Methylprednisolone Sodium Succinate 40 mg 10/11/19 00:30 10/11/19 08:45 Solu-Medrol IVP 40 mg Q6H KEO Administration Morphine Sulfate 2 mg 10/09/19 18:28 Morphine IVP Q4H PRN SEVERE PAIN Multivitamins Ther apeutic 1 tab 10/10/19 09:00 10/11/19 08:45 Multivitamin Tab PO 1 tab DAILY KEO Administration Ondansetron HCl 4 mg 10/09/19 15:57 Zofran IVP Q6H PRN NAUSEA AND VOMITI NG Oxycodone HCl 5 mg 10/09/19 18:28 10/10/19 21:05 Oxycodone Ir PO 5 mg Q6H PRN Administration Pain Pantoprazole [place] m 40 mg 10/10/19 09:00 10/11/19 08:46 Protonix PO 40 mg DAILY KEO Administration Potassium Chloride 30 meq 10/10/19 09:00 10/11/19 08:45 Klor-Con 10 PO 30 meq DAILY KEO Administration lisinopril Allergy (Unknown, Verified 10/09/19 14:30) Unknown niacin Allergy (Unknown, Verified 10/09/19 14:30) Unknown Vitals/I&O/Wt Last Vital Signs Temp 97.8 F 10/11/19 04:00 Pulse 77 10/11/19 08:54 Resp 18 10/11/19 08:54 BP 147/80 10/11/19 08:00 Pulse Ox 98 10/11/19 08:54 10/10/19 10/11/19 10/11/19 22:59 06:59 14:59 Intake Total 1730 / 3377.5 120 / 3497.5 250 / 250 Output Total 400 / 750 650 / 650 Balance 1330 / 2627.5 120 / 2747.5 -400 / -400 Weight last 48 hrs Weight 122.47 kg Physical Exam 2 Const: COMMON NORMALS: no apparent distress and oriented x3 GENERAL APPEARANCE: cooperative and comfortable NUTRITIONAL APPEARANCE: obese morbidly obese ORIENTATION/CONSCIOUSNESS: Yes awake HENMT: COMMON NORMALS: normocephalic, head/scalp atraumatic and hearing grossly normal bilaterally HEAD & SCALP: normocephalic and atraumatic MOUTH: other (very hoarse voice) Eye: COMMON NORMALS: PERRL, EOMs intact bilaterally and conjunctivae normal CONJUNCTIVA: Yes conjunctivae normal PUPIL: Yes PERRL Neck/C-Spine: COMMON NORMALS: full ROM GENERAL: Yes normal visual inspection and Yes trachea midline Resp: COMMON NORMALS: normal respiratory effort, no retractions and no use of accessory muscles EFFORT & INSPECTION: Yes able to speak in complete s entences, Yes symmetric chest movement, No tachypneic, Yes actively coughing productive (thick yellow sputum ) and hoarse and No tripod positioning AUSCULTATION: rhonchi throughout and wheezes (audible) OTHER: -on RA, saturating at 97% Cardio: COMMON NORMALS: regular rate, regular rhythm, S1 normal heart sound, S2 normal heart sound and no murmurs RATE: regular rate RHYTHM: regular rhythm HEART SOUNDS: S1 normal and S2 normal GI: COMMON NORMALS: normal to inspection, nondistended, normoactive bowel sounds, soft to palpation and non-tender INSPECTION: Yes central obesity PALPATION: Yes soft Back/Pelvis: COMMON NORMALS: thoracic and lumbar spine normal to inspection Extremity: COMMON NORMALS: normal to inspection, full ROM and no clubbing, cyanosis or edema; negative for no pedal edema Neuro: COMMON NORMALS: oriented x3, moves all extremities, no focal motor deficits and no sensory deficits noted Psych: COMMON NORMALS: mental status grossly normal, thought process normal, cooperative, affect normal and speech normal SPEECH: Yes normal speech THOUGHT PROCESS: normal thought process Skin: COMMON NORMALS: no rashes or lesions noted, no jaundice, no petechiae and no mottling GENERAL SKIN EXAM: no rashes or lesions noted Data : 10/11/19 03:23 10/11/19 03:23 Micro: Microbiology 10/09/19 20:07 Gram Stain - Final Sputum - Expectorated Sputum Sputum Culture - Preliminary 10/10/19 11:58 Legionella Urinary Antigen - Final Urine,Voided Bacterial Antigens - Final 10/09/19 12:32 Blood Culture - Preliminary Blood NEGATIVE TO DATE 10/09/19 12:29 Blood Culture - Preliminary Blood NEGATIVE TO DATE A&P Assessment and plan (1) Upper respiratory infection: -very hoarse voice clinically, quite ill appearing -CXR noted, negative, CT chest done showing bilateral pneumonitis in background of emphysema -continue Ceftriaxone and Azithromycin (day 3) -blood cx: prelim negative -sputum culture prelim mixed peter, gram stain growing GPC and GPRs -negative influenza screen, bacterial antigens, Legionella -denies sick contacts, recent travel, contact with known COVID-19 so no further testing at this time -associated sepsis given fever, hypoxia, ill appearance, tachypnea. Sepsis has resolved given hemodynamic stability, no fever x > 24 hrs, RR appropriate, on RA -close monitoring of respiratory status, supplemental oxygen as needed Status: Acute Qualifiers: URI type: unspecified URI Qualified Code(s): J06.9 - Acute upper respiratory infection, unspecified Code(s): J06.9 - Acute upper respiratory infection, unspecified (2) COPD (chronic obstructive pulmonary disease): -acute COPD exacerbation related to bilateral pneumonitis as noted above -on steroids, Duonebs PRN Status: Acute Qualifiers: COPD type: COPD with acute exacerbation Qualified Code(s): J44.1 - Chronic obstructive pulmonary disease with (acute) exacerbation Code(s): J44.9 - Chronic obstructive pulmonary disease, unspecified (3) Chronic back pain: -per med list, is on chronic oxycodone Status: Acute Qualifiers: Back pain laterality: unspecified Back pain location: low back pain Sciatica presence: unspecified whether sciatica present Qualified Code(s): M54.5 - Low back pain; G89.29 - Other chronic pain Code(s): M54.9 - Dorsalgia, unspecified; G89.29 - Other chronic pain (4) HTN (hypertension): -currently normotensive, borderline low BP in ED, received 500 mL bolus, gave additional 500 mL bolus -continue to monitor vital signs -d/c IVF as has good oral intake; encourage oral hydration Status: Acute Qualifiers: Hypertension type: essential hypertension Qualified Code(s): I10 - Essential (primary) hypertension Code(s): I10 - Essential (primary) hypertension (5) CAD (coronary artery disease): -has hx of CAD, continue statin, ASA Status: Acute Qualifiers: Associated angina: without angina Coronary Disease-Associated Artery/Lesion type: [place] artery [place] vs. transplanted heart: [place] heart Qualified Code(s): I25.10 - Atherosclerotic heart disease of [place] coronary artery without angina pectoris Code(s): I25.10 - Atherosclerotic heart disease of [place] coronary artery without angina pectoris (6) Hyperlipidemia: -continue statin Status: Acute Qualifiers: Hyperlipidemia type: unspecified Qualified Code(s): E78.5 - Hyperlipidemia, unspecified Code(s): E78.5 - Hyperlipidemia, unspecified (7) Morbid obesity: -BMI-40 kg/m2 Status: Acute Code(s): E66.01 - Morbid (severe) obesity due to excess calories Additional A&P Information -hx of chronic systolic CHF; Echo (06/2018): EF=45-50%, global LV hypokinesis, trace [place], trace [place], trace [place]; monitor for fluid overload with IV hydration -former smoker; quit >30 yrs ago -DAMIÁN on CKD unknown stage; unknown baseline Cr but available labs on record indicate prior Cr of 1.6; continue to monitor renal function, may consider resuming diuretics, ARB tomorrow if stable BP, renal function -GERD, on PPI -Altered mental status resolved, off 1:1 monitoring -cardiac diet as tolerated -fall precautions, PT evaluation appreciated; HEP recommended -GI ppx with PPI -DVT ppx with heparin -Dispo: SNF -Code status: FULL code -transfer to floor Attestations Medical Necessity Statement*: Patient requires hospitalization for continued treatment of pneumonia, on IV antibiotics. Time Spent in Patient Care: 16 - 35 minutes (>than 50% of time spent in counselling and/or direct pt care on unit) . Coding Level of Care Code Acute Developer Relations Manager for [facility] Fwd Exam Comprehensive Diagnoses Upper respiratory infection J06.9 URI type: unspecified URI COPD (chronic obstructive pulmonary disease) J44.1 COPD type: COPD with acute exacerbation Chronic back pain M54.5; G89.29 Back pain laterality: unspecified Back pain location: low back pain Sciatica presence: unspecified whether sciatica present HTN (hypertension) I10 Hypertension type: essential hypertension CAD (coronary artery disease) I25.10 Associated angina: without angina Coronary Disease-Associated Artery/Lesion type: [place] artery [place] vs. transplanted heart: [place] heart Hyperlipidemia E78.5 Hyperlipidemia type: unspecified Morbid obesity E66.01
[2019-10-11] MEDS: cefTRIAXone 1,000 MG in sodium chloride 0.9% (plus) 50 ML 100 MG IV (12:54)
[2019-10-11] MEDS: azithromycin 500 MG in sodium chloride 0.9% 250 ML 250 MG IV (17:57)
[2019-10-11] MEDS: oxyCODONE 5 mg IR Tab/Cap PO (17:59)
[2019-10-11 18:43] LABS: Oxygen Device RA
[2019-10-11] MEDS: predniSONE 20 mg Tablet 60 MG PO (21:58)
[2019-10-11] MEDS: atorvastatin 40 mg Tablet 20 MG PO (21:58)
[2019-10-11] MEDS: cloNIDine 0.1 mg Tablet 0.2 MG PO (21:58)
[2019-10-12] VITALS (15 sets, daily range): BP systolic 132–178; BP diastolic 65–88; PULSE 51–78; RESP 17–22; TEMP 36.4–37; O2SAT 95–98
[2019-10-12] MEDS: oxyCODONE 5 mg IR Tab/Cap PO ×2 (00:04→11:37)
[2019-10-12] MEDS: benzonatate 100 mg Capsule PO ×3 (00:04→20:02)
[2019-10-12 05:46] LABS: Basophils % 0.1 %; Hematocrit 37.4 % (42.0-52.0); Hemoglobin 12.2 g/dL (11.7-16.6); Lymphocytes # 1.3 10^3/uL (0.8-4.8); Lymphocytes % 7.4 %; Mean Corpuscular HGB Conc 32.6 g/dL (30.0-36.0); Mean Corpuscular Hemoglobin 28.2 pg (28.0-34.0); Mean Corpuscular Volume 86.6 fL (80-94); Monocytes # 0.6 10^3/uL (0.2-0.9); Monocytes % 3.2 %; Neutrophils # 15.5 10^3/uL (1.8-7.7); Neutrophils % 88.4 %; Nucleated Red Blood Cells % 0 %; Platelet Count 255 10^3/cmm (130-400); Red Blood Count 4.32 10^6/uL (4.1-5.3); Red Cell Distribution Width 13.1 % (12.1-15.1); White Blood Count 17.6 10^3/uL (4.0-10.0)
[2019-10-12 06:02] LABS: Anion Gap 16.5 (5-19); Blood Urea Nitrogen 34 mg/dL (8-23); Calcium 8.8 mg/dL (8.5-10.5); Carbon Dioxide 24 mmol/L (22-29); Chloride 102 mmol/L (98-107); Glucose 214 mg/dL (65-115); Osmolality Calculated 290 mOsm/kg (285-295); Potassium 4.5 mmol/L (3.5-5.1); Sodium 138 mmol/L (136-145)
--- NOTE | 2019-10-12 08:56 | PM.PN ---
Subjective Subjective: Interval history: AM labs noted, decreasing leukocytosis, likely steroid induced. VSS, remains on RA. Patient seen and examined, in good spirits, productive cough and hoarseness persists. Gradually improving. Medications: Reviewed: Yes Medication Review Details: Active Medications Generic Name Dose Route Start Last Admin Trade Name Freq PRN Reason Stop Dose Admin Acetaminophen 650 mg 10/09/19 15:57 10/09/19 21:16 Tylenol PO 650 mg Q6H PRN Administration Mild/Mod Pain Or Temp >/= 101 Albuterol/Ipratrop ium 3 ml 10/09/19 21:00 Duoneb INHALATION Q6H.RESPIRATORY P RN SHORTNESS OF KEVIN TH Albuterol/Ipratrop ium 3 ml 10/09/19 16:00 10/11/19 21:08 Duoneb INHALATION 3 ml QID.RESPIRATORY S CH Administration Aspirin 81 mg 10/10/19 09:00 10/11/19 08:45 Aspirin Chewable PO 81 mg DAILY KEO Administration Atorvastatin Calci um 20 mg 10/09/19 21:00 10/11/19 21:58 Lipitor PO 20 mg BEDTIME KEO Administration Benzocaine 1 each 10/09/19 18:28 Cepacol MUCOUS MEM Q2H PRN SORE THROAT Benzonatate 100 mg 10/09/19 18:28 10/12/19 00:04 Tessalon Pearls PO 100 mg TID PRN Administration COUGH Clonidine HCl 0.2 mg 10/09/19 21:00 10/11/19 21:58 Catapres PO 0.2 mg BEDTIME KEO Administration Gabapentin 600 mg 10/11/19 00:30 10/11/19 21:58 Neurontin PO 600 mg BEDTIME KEO Administration Guaifenesin 600 mg 10/09/19 18:28 10/11/19 17:56 Mucinex PO 600 mg BID KEO Administration Heparin Sodium (Be ef Lung) 5,000 unit 10/09/19 18:28 10/12/19 08:00 Heparin SUBCUT Not Given Q12H KEO Azithromycin 500 m g/ Sodium 250 mls @ 250 mls /hr 10/09/19 17:15 10/12/19 08:01 Chloride IV Infused Q24H KEO Infusion Protocol Ceftriaxone Sodium 1,000 mg/ 50 mls @ 100 mls/ hr 10/10/19 12:45 10/11/19 17:42 Sodium Chloride IV Infused Q24H KEO Infusion Protocol Morphine Sulfate 2 mg 10/09/19 18:28 Morphine IVP Q4H PRN SEVERE PAIN Multivitamins Ther apeutic 1 tab 10/10/19 09:00 10/11/19 08:45 Multivitamin Tab PO 1 tab DAILY KEO Administration Ondansetron HCl 4 mg 10/09/19 15:57 Zofran IVP Q6H PRN NAUSEA AND VOMITI NG Oxycodone HCl 5 mg 10/09/19 18:28 10/12/19 00:04 Oxycodone Ir PO 5 mg Q6H PRN Administration Pain Pantoprazole Sodiu m 40 mg 10/10/19 09:00 10/11/19 08:46 Protonix PO 40 mg DAILY KEO Administration Potassium Chloride 30 meq 10/10/19 09:00 10/11/19 08:45 Klor-Con 10 PO 30 meq DAILY KEO Administration Prednisone 60 mg 10/11/19 21:00 10/11/19 21:58 Prednisone PO 60 mg DAILY KEO Administration lisinopril Allergy (Unknown, Verified 10/09/19 14:30) Unknown niacin Allergy (Unknown, Verified 10/09/19 14:30) Unknown Vitals/I&O/Wt Last Vital Signs Temp 98.6 F 10/12/19 07:34 Pulse 54 L 10/12/19 07:34 Resp 18 10/12/19 07:34 BP 132/74 10/12/19 07:34 Pulse Ox 96 10/12/19 07:34 10/11/19 10/12/19 10/12/19 22:59 06:59 14:59 Intake Total 410 / 910 200 / 1110 250 / 250 Balance 410 / 260 200 / 460 250 / 250 Physical Exam Const: COMMON NORMALS: no apparent distress and oriented x3 GENERAL APPEARANCE: cooperative and comfortable NUTRITIONAL APPEARANCE: obese morbidly obese ORIENTATION/CONSCIOUSNESS: Yes awake HENMT: COMMON NORMALS: normocephalic, head/scalp atraumatic and hearing grossly normal bilaterally HEAD & SCALP: normocephalic and atraumatic MOUTH: other (very hoarse voice) Eye: COMMON NORMALS: PERRL, EOMs intact bilaterally and conjunctivae normal CONJUNCTIVA: Yes conjunctivae normal PUPIL: Yes PERRL Neck/C-Spine: COMMON NORMALS: full ROM GENERAL: Yes normal visual inspection and Yes trachea midline Resp: COMMON NORMALS: normal respiratory effort, no retractions and no use of accessory muscles EFFORT & INSPECTION: Yes able to speak in complete sentences, Yes symmetric chest movement, No tachypneic, Yes actively coughing productive (thick yellow sputum ) and hoarse and No tripod positioning AUSCULTATION: rhonchi throughout and wheezes (audible) OTHER: -on RA, saturating at 97% Cardio: COMMON NORMALS: regular rate, regular rhythm, S1 normal heart sound, S2 normal heart sound and no murmurs RATE: regular rate RHYTHM: regular rhythm HEART SOUNDS: S1 normal and S2 normal GI: COMMON NORMALS: normal to inspection, nondistended, normoactive bowel sounds, soft to palpation and non-tender INSPECTION: Yes central obesity PALPATION: Yes soft Back/Pelvis: COMMON NORMALS: thoracic and lumbar spine normal to inspection Extremity: COMMON NORMALS: normal to inspection, full ROM and no clubbing, cyanosis or edema; negative for no pedal edema Neuro: COMMON NORMALS: oriented x3, moves all extremities, no focal motor deficits and no sensory deficits noted Psych: COMMON NORMALS: mental status grossly normal, thought process normal, cooperative, affect normal and speech normal SPEECH: Yes normal speech THOUGHT PROCESS: normal thought process Skin: COMMON NORMALS: no rashes or lesions noted, no jaundice, no petechiae and no mottling GENERAL SKIN EXAM: no rashes or lesions noted Data : 10/12/19 05:10 10/12/19 05:10 Micro: Microbiology 10/09/19 20:07 Gram Stain - Final Sputum - Expectorated Sputum Sputum Culture - Preliminary A&P Assessment and plan (1) Upper respiratory infection: -very hoarse voice clinically, quite ill appearing -CXR noted, negative, CT chest done showing bilateral pneumonitis in background of emphysema -continue Ceftriaxone and Azithromycin (day 4) -blood cx: prelim negative -sputum culture prelim mixed peter, gram stain growing GPC and GPRs -negative influenza screen, bacterial antigens, Legionella -denies sick contacts, recent travel, contact with known COVID-19 so no further testing at this time -associated sepsis given fever, hypoxia, ill appearance, tachypnea. Sepsis has resolved given hemodynamic stability, no fever x > 24 hrs, RR appropriate, on RA -close monitoring of respiratory status, supplemental oxygen as needed Status: Acute Qualifiers: URI type: unspecified URI Qualified Code(s): J06.9 - Acute upper respiratory infection, unspecified Code(s): J06.9 - Acute upper respiratory infection, unspecified (2) COPD (chronic obstructive pulmonary disease): -acute COPD exacerbation related to bilateral pneumonitis as noted above -on steroids, Duonebs PRN Status: Acute Qualifiers: COPD type: COPD with acute exacerbation Qualified Code(s): J44.1 - Chronic obstructive pulmonary disease with (acute) exacerbation Code(s): J44.9 - Chronic obstructive pulmonary disease, unspecified (3) Chronic back pain: -per med list, is on chronic oxycodone Status: Acute Qualifiers: Back pain laterality: unspecified Back pain location: low back pain Sciatica presence: unspecified whether sciatica present Qualified Code(s): M54.5 - Low back pain; G89.29 - Other chronic pain Code(s): M54.9 - Dorsalgia, unspecified; G89.29 - Other chronic pain (4) HTN (hypertension): -currently normotensive, borderline low BP in ED, received 500 mL bolus, gave additional 500 mL bolus -continue to monitor vital signs -d/c IVF as has good oral intake; encourage oral hydration Status: Acute Qualifiers: Hypertension type: essential hypertension Qualified Code(s): I10 - Essential (primary) hypertension Code(s): I10 - Essential (primary) hypertension (5) CAD (coronary artery disease): -has hx of CAD, continue statin, ASA Status: Acute Qualifiers: Associated angina: without angina Coronary Disease-Associated Artery/Lesion type: [place] artery [place] vs. transplanted heart: [place] heart Qualified Code(s): I25.10 - Atherosclerotic heart disease of [place] coronary artery without angina pectoris Code(s): I25.10 - Atherosclerotic heart disease of [place] coronary artery without angina pectoris (6) Hyperlipidemia: -continue statin Status: Acute Qualifiers: Hyperlipidemia type: unspecified Qualified Code(s): E78.5 - Hyperlipidemia, unspecified Code(s): E78.5 - Hyperlipidemia, unspecified (7) Morbid obesity: -BMI-40 kg/m2 Status: Acute Code(s): E66.01 - Morbid (severe) obesity due to excess calories Additional A&P Information -hx of chronic systolic CHF; Echo (06/2018): EF=45-50%, global LV hypokinesis, trace MR, trace TR, trace LA; monitor for fluid overload with IV hydration -former smoker; quit >30 yrs ago -DAMIÁN on CKD unknown stage; unknown baseline Cr but available labs on record indicate prior Cr of 1.6; continue to monitor renal function, may consider resuming diuretics, ARB tomorrow if stable BP, renal function -GERD, on PPI -Altered mental status resolved, off 1:1 monitoring -cardiac diet as tolerated -fall precautions, PT evaluation appreciated; HEP recommended -GI ppx with PPI -DVT ppx with heparin -Dispo: SNF, prefers [facility] -Code status: FULL code Attestations Medical Necessity Statement*: Patient requires hospitalization for continued treatment of pneumonia, needs continued monitoring of respiratory status given persistent cough and hoarseness of voice. Time Spent in Patient Care: 16 - 35 minutes (>than 50% of time spent in counselling and/or direct pt care on unit). Coding Level of Care Code Acute Equipment Engineering Technician for [facility] Fwd Exam Comprehensive Diagnoses Upper respiratory infection J06.9 URI type: unspecified URI COPD (chronic obstructive pulmonary disease) J44.1 COPD type: COPD with acute exacerbation Chronic back pain M54.5; G89.29 Back pain laterality: unspecified Back pain location: low back pain Sciatica presence: unspecified whether sciatica present HTN (hypertension) I10 Hypertension type: essential hypertension CAD (coronary artery disease) I25.10 Associated angina: without angina Coronary Disease-Associated Artery/Lesion type: [place] artery [place] vs. transplanted heart: [place] heart Hyperlipidemia E78.5 Hyperlipidemia type: unspecified Morbid obesity E66.01
[2019-10-12] MEDS: guaiFENesin 600 mg Tablet PO ×2 (08:58→18:03)
[2019-10-12] MEDS: predniSONE 20 mg Tablet 60 MG PO (08:58)
[2019-10-12] MEDS: aspirin 81 mg Chew Tablet PO (08:59)
[2019-10-12] MEDS: pantoprazole DR 40 mg Tablet PO (08:59)
[2019-10-12] MEDS: multivitamin therapeutic Tablet 1 TAB PO (09:00)
[2019-10-12] MEDS: ipratropium-albuterol 3 mL Neb INHALATION ×3 (11:22→20:43)
[2019-10-12] MEDS: cefTRIAXone 1,000 MG in sodium chloride 0.9% (plus) 50 ML 100 MG IV (12:16)
[2019-10-12] MEDS: azithromycin 500 MG in sodium chloride 0.9% 250 ML 250 MG IV (18:02)
[2019-10-12] MEDS: heparin 5,000 unit/mL INJ 1 mL 5000 UNIT SUBCUT (20:01)
[2019-10-12] MEDS: atorvastatin 40 mg Tablet 20 MG PO (20:02)
[2019-10-12] MEDS: gabapentin 300 mg Capsule 600 MG PO (20:02)
[2019-10-12] MEDS: cloNIDine 0.1 mg Tablet 0.2 MG PO (20:02)
[2019-10-13] VITALS (15 sets, daily range): BP systolic 121–165; BP diastolic 66–82; PULSE 46–80; RESP 17–22; TEMP 35.8–37; O2SAT 92–100
[2019-10-13] MEDS: ipratropium-albuterol 3 mL Neb INHALATION ×3 (08:12→19:48)
[2019-10-13] MEDS: heparin 5,000 unit/mL INJ 1 mL 5000 UNIT SUBCUT ×2 (08:33→19:21)
[2019-10-13] MEDS: predniSONE 20 mg Tablet 60 MG PO (08:35)
[2019-10-13] MEDS: multivitamin therapeutic Tablet 1 TAB PO (08:36)
[2019-10-13] MEDS: guaiFENesin 600 mg Tablet PO ×2 (08:36→17:24)
[2019-10-13] MEDS: pantoprazole DR 40 mg Tablet PO (08:36)
[2019-10-13] MEDS: aspirin 81 mg Chew Tablet PO (08:36)
[2019-10-13] MEDS: cefTRIAXone 1,000 MG in sodium chloride 0.9% (plus) 50 ML 100 MG IV (13:30)
--- NOTE | 2019-10-13 15:05 | P.PN_ITS ---
Subjective Subjective: Interval history: Patient seen and examined, sitting in chair by bedside, seems more coarse, audibly wheezing with more expectoration. Will repeat CXR, just getting Neb treatment. Reports feeling worse today. Medications: Reviewed: Yes Medication Review Details: Active Medications Generic Name Dose Route Start Last Admin Trade Name Freq PRN Reason Stop Dose Admin Acetaminophen 650 mg 10/09/19 15:57 10/09/19 21:16 Tylenol PO 650 mg Q6H PRN Administration Mild/Mod Pain Or Temp >/= 101 Albuterol/Ipratrop ium 3 ml 10/09/19 21:00 Duoneb INHALATION Q6H.RESPIRATORY P RN SHORTNESS OF KEVIN TH Albuterol/Ipratrop ium 3 ml 10/09/19 16:00 10/13/19 12:10 Duoneb INHALATION Not Given QID.RESPIRATORY S CH Aspirin 81 mg 10/10/19 09:00 10/13/19 08:36 Aspirin Chewable PO 81 mg DAILY KEO Administration Atorvastatin Calci um 20 mg 10/09/19 21:00 10/12/19 20:02 Lipitor PO 20 mg BEDTIME KEO Administration Benzocaine 1 each 10/09/19 18:28 Cepacol MUCOUS MEM Q2H PRN SORE THROAT Benzonatate 100 mg 10/09/19 18:28 10/12/19 20:02 Tessalon Pearls PO 100 mg TID PRN Administration COUGH Clonidine HCl 0.2 mg 10/09/19 21:00 10/12/19 20:02 Catapres PO 0.2 mg BEDTIME KEO Administration Gabapentin 600 mg 10/11/19 00:30 10/12/19 20:02 Neurontin PO 600 mg BEDTIME KEO Administration Guaifenesin 600 mg 10/09/19 18:28 10/13/19 08:36 Mucinex PO 600 mg BID KEO Administration Heparin Sodium (Be ef Lung) 5,000 unit 10/09/19 18:28 10/13/19 08:33 Heparin SUBCUT 5,000 unit Q12H KEO Administration Azithromycin 500 m g/ Sodium 250 mls @ 250 mls /hr 10/09/19 17:15 10/12/19 18:02 Chloride IV 250 mls/hr Q24H KEO Administration Protocol Ceftriaxone Sodium 1,000 mg/ 50 mls @ 100 mls/ hr 10/10/19 12:45 10/13/19 13:30 Sodium Chloride IV 100 mls/hr Q24H KEO Administration Protocol Morphine Sulfate 2 mg 10/09/19 18:28 Morphine IVP Q4H PRN SEVERE PAIN Multivitamins Ther apeutic 1 tab 10/10/19 09:00 10/13/19 08:36 Multivitamin Tab PO 1 tab DAILY KEO Administration Ondansetron HCl 4 mg 10/09/19 15:57 Zofran IVP Q6H PRN NAUSEA AND VOMITI NG Oxycodone HCl 5 mg 10/09/19 18:28 10/12/19 11:37 Oxycodone Ir PO 5 mg Q6H PRN Administration Pain Pantoprazole Sodiu m 40 mg 10/10/19 09:00 10/13/19 08:36 Protonix PO 40 mg DAILY KEO Administration Potassium Chloride 30 meq 10/10/19 09:00 10/13/19 08:39 Klor-Con 10 PO 30 meq DAILY KEO Administration Prednisone 60 mg 10/11/19 21:00 10/13/19 08:35 Prednisone PO 60 mg DAILY KEO Administration lisinopril Allergy (Unknown, Verified 10/09/19 14:30) Unknown niacin Allergy (Unknown, Verified 10/09/19 14:30) Unknown Vitals/I&O/Wt Last Vital Signs Temp 97.4 F L 10/13/19 11:00 Pulse 56 L 10/13/19 11:00 Resp 17 10/13/19 11:00 BP 132/80 10/13/19 11:00 Pulse Ox 100 10/13/19 11:00 10/13/19 10/13/19 10/13/19 06:59 14:59 22:59 Intake Total 880 / 880 Output Total 210 / 210 300 / 300 Balance -210 / 1310 580 / 580 Weight last 48 hrs Weight 129.863 kg Weight 122.47 kg Physical Exam Const: COMMON NORMALS: no apparent distress and oriented x3 GENERAL APPEARANCE: cooperative and comfortable NUTRITIONAL APPEARANCE: obese morbidly obese ORIENTATION/CONSCIOUSNESS: Yes awake HENMT: COMMON NORMALS: normocephalic, head/scalp atraumatic and hearing grossly normal bilaterally HEAD & SCALP: normocephalic and atraumatic MOUTH: other (very hoarse voice) Eye: COMMON NORMALS: PERRL, EOMs intact bilaterally and conjunctivae normal CONJUNCTIVA: Yes conjunctivae normal PUPIL: Yes PERRL Neck/C-Spine: COMMON NORMALS: full ROM GENERAL: Yes normal visual inspection and Yes trachea midline Resp: COMMON NORMALS: normal respiratory effort, no retractions and no use of accessory muscles EFFORT & INSPECTION: Yes able to speak in complete sentences, Yes symmetric chest movement, No tachypneic, Yes actively coughing productive (thick yellow sputum ) and hoarse and No tripod positioning AUSCULTATION: rhonchi throughout and wheezes (audible) OTHER: -on RA, saturating at 92% Cardio: COMMON NORMALS: regular rate, regular rhythm, S1 normal heart sound, S2 normal heart sound and no murmurs RATE: regular rate RHYTHM: regular rhythm HEART SOUNDS: S1 normal and S2 normal GI: COMMON NORMALS: normal to inspection, nondistended, normoactive bowel sounds, soft to palpation and non-tender INSPECTION: Yes central obesity PALPATION: Yes soft Back/Pelvis: COMMON NORMALS: thoracic and lumbar spine normal to inspection Extremity: COMMON NORMALS: normal to inspection, full ROM and no clubbing, cyanosis or edema; negative for no pedal edema Neuro: COMMON NORMALS: oriented x3, moves all extremities, no focal motor deficits and no sensory deficits noted Psych: COMMON NORMALS: mental status grossly normal, thought process normal, cooperative, affect normal and speech normal SPEECH: Yes normal speech THOUGHT PROCESS: normal thought process Skin: COMMON NORMALS: no rashes or lesions noted, no jaundice, no petechiae and no mottling GENERAL SKIN EXAM: no rashes or lesions noted Data : 10/12/19 05:10 10/12/19 05:10 Micro: Microbiology 10/09/19 20:07 Gram Stain - Final Sputum - Expectorated Sputum Sputum Culture - Final A&P Assessment and plan (1) Upper respiratory infection: -very hoarse voice clinically, quite ill appearing -CXR noted, negative, CT chest done showing bilateral pneumonitis in background of emphysema -continue Ceftriaxone and Azithromycin (day 5) -blood cx: prelim negative -sputum culture prelim mixed peter, gram stain growing GPC and GPRs -negative influenza screen, bacterial antigens, Legionella -denies sick contacts, recent travel, contact with known COVID-19 so no further testing at this time -associated sepsis given fever, hypoxia, ill appearance, tachypnea. Sepsis has resolved given hemodynamic stability, no fever x > 24 hrs, RR appropriate, on RA -continue to trend WBC -close monitoring of respiratory status, supplemental oxygen as needed -repeat CXR today as sounds more coarse, and seems to be coughing more; repeat labs in AM Status: Acute Qualifiers: URI type: unspecified URI Qualified Code(s): J06.9 - Acute upper respiratory infection, unspecified Code(s): J06.9 - Acute upper respiratory infection, unspecified (2) COPD (chronic obstructive pulmonary disease): -acute COPD exacerbation related to bilateral pneumonitis as noted above -on steroids, Duonebs PRN Status: Acute Qualifiers: COPD type: COPD with acute exacerbation Qualified Code(s): J44.1 - Chr onic obstructive pulmonary disease with (acute) exacerbation Code(s): J44.9 - Chronic obstructive pulmonary disease, unspecified (3) Chronic back pain: -per med list, is on chronic oxycodone Status: Acute Qualifiers: Back pain location: low back pain Back pain laterality: unspecified Sciatica presence: unspecified whether sciatica present Qualified Code(s): M54.5 - Low back pain; G89.29 - Other chronic pain Code(s): M54.9 - Dorsalgia, unspecified; G89.29 - Other chronic pain (4) HTN (hypertension): -currently normotensive, borderline low BP in ED, received 500 mL bolus, gave additional 500 mL bolus -continue to monitor vital signs -d/c IVF as has good oral intake; encourage oral hydration Status: Acute Qualifiers: Hypertension type: essential hypertension Qualified Code(s): I10 - Essential (primary) hypertension Code(s): I10 - Essential (primary) hypertension (5) CAD (coronary artery disease): -has hx of CAD, continue statin, ASA Status: Acute Qualifiers: Coronary Disease-Associated Artery/Lesion type: [place] artery [place] v s. transplanted heart: [place] heart Associated angina: without angina Qualified Code(s): I25.10 - Atherosclerotic heart disease of [place] coronary artery without angina pectoris Code(s): I25.10 - Atherosclerotic heart disease of [place] coronary artery without angina pectoris (6) Hyperlipidemia: -continue statin Status: Acute Qualifiers: Hyperlipidemia type: unspecified Qualified Code(s): E78.5 - Hyperlipidemia, unspecified Code(s): E78.5 - Hyperlipidemia, unspecified (7) Morbid obesity: -BMI-40 kg/m2 Status: Acute Code(s): E66.01 - Morbid (severe) obesity due to excess calories Additional A&P Information -hx of chronic systolic CHF; Echo (06/2018): EF=45-50%, global LV hypokinesis, trace MR, trace TR, trace SC; monitor for fluid overload with IV hydration -former smoker; quit >30 yrs ago -DAMIÁN on CKD unknown stage; unknown baseline Cr but available labs on record indicate prior Cr of 1.6; continue to monitor renal function, may consider resuming diuretics, ARB tomorrow if stable BP, renal function -GERD, on PPI -Altered mental status resolved, off 1:1 monitoring -cardiac diet as tolerated -fall precautions, PT evaluation appreciated; HEP recommended -GI ppx with PPI -DVT ppx with heparin -Dispo: SNF, prefers [facility] -Code status: FULL code Attestations Medical Necessity Statement*: Patient requires hospitalization for continued treatment of bilateral pneumonia, on IV antibiotics. Time Spent in Patient Care: Greater than 35 minutes (>than 50% of time spent in counselling and/or direct pt care on unit) . Coding Level of Care Code Acute Home Health Clinician for [facility] Fwd Diagnoses Upper respiratory infection J06.9 URI type: unspecified URI COPD (chronic obstructive pulmonary disease) J44.1 COPD type: COPD with acute exacerbation Chronic back pain M54.5; G89.29 Back pain location: low back pain Back pain laterality: unspecified Sciatica presence: unspecified whether sciatica present HTN (hypertension) I10 Hypertension type: essential hypertension CAD (coronary artery disease) I25.10 Coronary Disease-Associated Artery/Lesion type: [place] artery [place] vs. transplanted heart: [place] heart Associated angina: without angina Hyperlipidemia E78.5 Hyperlipidemia type: unspecified Morbid obesity E66.01
--- NOTE | 2019-10-13 15:21 | XRR_ITS ---
PROCEDURE INFORMATION: Exam: XR Chest, 1 View Exam date and time: 10/13/2019 3:39 PM Age: 74 years old Clinical indication: Cough and dyspnea; Patient HX: Increased dyspnea/sob today; Additional info: Increased SOB, productive cough TECHNIQUE: Imaging protocol: XR of the chest Views: 1 view. COMPARISON: CR XR chest 1V portable [id number] 10/09/2019 12:13 PM FINDINGS: Lungs: There are pulmonary parenchymal calcifications consistent with remote granulomatous organism exposure. Pleural space: Unremarkable. No pleural effusion. No pneumothorax. Heart/Mediastinum: Unremarkable. No cardiomegaly. 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 Bones/joints: Unremarkable. XR/XR chest 1V portable [id number] IMPRESSION: No evidence for acute cardiopulmonary disease.
[2019-10-13] MEDS: benzonatate 100 mg Capsule PO (15:32)
[2019-10-13] MEDS: azithromycin 500 MG in sodium chloride 0.9% 250 ML 250 MG IV (17:24)
[2019-10-13] MEDS: oxyCODONE 5 mg IR Tab/Cap PO (18:32)
[2019-10-13] MEDS: atorvastatin 40 mg Tablet 20 MG PO (21:24)
[2019-10-13] MEDS: gabapentin 300 mg Capsule 600 MG PO (21:24)
[2019-10-13] MEDS: cloNIDine 0.1 mg Tablet 0.2 MG PO (21:25)
[2019-10-14] VITALS (15 sets, daily range): BP systolic 146–169; BP diastolic 78–92; PULSE 61–117; RESP 18–20; TEMP 36.5–37.1; O2SAT 94–98
[2019-10-14] MEDS: benzonatate 100 mg Capsule PO ×3 (00:17→16:32)
[2019-10-14] MEDS: oxyCODONE 5 mg IR Tab/Cap PO ×2 (00:17→22:30)
[2019-10-14 06:03] LABS: Basophils % 0.3 %; Eosinophils % 0.2 %; Hematocrit 36.6 % (42.0-52.0); Hemoglobin 11.7 g/dL (11.7-16.6); Lymphocytes # 3.3 10^3/uL (0.8-4.8); Lymphocytes % 25.7 %; Mean Corpuscular Hemoglobin 28.1 pg (28.0-34.0); Mean Corpuscular Volume 87.8 fL (80-94); Neutrophils % 61.8 %; Nucleated Red Blood Cells % 0 %; Platelet Count 259 10^3/cmm (130-400); Red Blood Count 4.17 10^6/uL (4.1-5.3); Red Cell Distribution Width 13.2 % (12.1-15.1); White Blood Count 12.9 10^3/uL (4.0-10.0)
[2019-10-14 06:31] LABS: Anion Gap 13.2 (5-19); Blood Urea Nitrogen 25 mg/dL (8-23); Calcium 8.8 mg/dL (8.5-10.5); Carbon Dioxide 26 mmol/L (22-29); Chloride 102 mmol/L (98-107); Glucose 127 mg/dL (65-115); Osmolality Calculated 282 mOsm/kg (285-295); Potassium 4.2 mmol/L (3.5-5.1); Sodium 137 mmol/L (136-145)
[2019-10-14] MEDS: ipratropium-albuterol 3 mL Neb INHALATION ×3 (07:21→20:30)
[2019-10-14] MEDS: predniSONE 20 mg Tablet 60 MG PO (08:37)
[2019-10-14] MEDS: guaiFENesin 600 mg Tablet PO ×2 (08:37→17:33)
[2019-10-14] MEDS: pantoprazole DR 40 mg Tablet PO (08:37)
[2019-10-14] MEDS: multivitamin therapeutic Tablet 1 TAB PO (08:37)
[2019-10-14] MEDS: heparin 5,000 unit/mL INJ 1 mL 5000 UNIT SUBCUT ×2 (08:37→20:19)
[2019-10-14] MEDS: aspirin 81 mg Chew Tablet PO (08:37)
--- NOTE | 2019-10-14 11:46 | PC.SOCIAL ---
IMM Update Pg 2 of IMM given and explained to patient who verbalized understanding. Copy provided and copy in chart updated.
[2019-10-14] MEDS: cefTRIAXone 1,000 MG in sodium chloride 0.9% (plus) 50 ML 100 MG IV (12:13)
[2019-10-14] MEDS: azithromycin 500 MG in sodium chloride 0.9% 250 ML 250 MG IV (17:33)
--- NOTE | 2019-10-14 19:33 | PM.PN ---
Subjective Subjective: Interval history: Patient seen and examined, sitting in chair by bedside, continues to have persistent productive cough, reports feeling like he did yesterday, minimal progress is a little frustrating. Seems to feel better when he uses CPAP. Medications: Reviewed: Yes Medication Review Details: Active Medications Generic Name Dose Route Start Last Admin Trade Name Freq PRN Reason Stop Dose Admin Acetaminophen 650 mg 10/09/19 15:57 10/09/19 21:16 Tylenol PO 650 mg Q6H PRN Administration Mild/Mod Pain Or Temp >/= 101 Albuterol/Ipratrop ium 3 ml 10/09/19 21:00 Duoneb INHALATION Q6H.RESPIRATORY P RN SHORTNESS OF KEVIN TH Albuterol/Ipratrop ium 3 ml 10/09/19 16:00 10/14/19 16:16 Duoneb INHALATION 3 ml QID.RESPIRATORY S CH Administration Aspirin 81 mg 10/10/19 09:00 10/14/19 08:37 Aspirin Chewable PO 81 mg DAILY KEO Administration Atorvastatin Calci um 20 mg 10/09/19 21:00 10/13/19 21:24 Lipitor PO 20 mg BEDTIME KEO Administration Benzocaine 1 each 10/09/19 18:28 Cepacol MUCOUS MEM Q2H PRN SORE THROAT Benzonatate 100 mg 10/09/19 18:28 10/14/19 16:32 Tessalon Pearls PO 100 mg TID PRN Administration COUGH Clonidine HCl 0.2 mg 10/09/19 21:00 10/13/19 21:25 Catapres PO 0.2 mg BEDTIME KEO Administration Gabapentin 600 mg 10/11/19 00:30 10/13/19 21:24 Neurontin PO 600 mg BEDTIME KEO Administration Guaifenesin 600 mg 10/09/19 18:28 10/14/19 17:33 Mucinex PO 600 mg BID KEO Administration Heparin Sodium (Be ef Lung) 5,000 unit 10/09/19 18:28 10/14/19 08:37 Heparin SUBCUT 5,000 unit Q12H KEO Administration Azithromycin 500 m g/ Sodium 250 mls @ 250 mls /hr 10/09/19 17:15 10/14/19 17:33 Chloride IV 250 mls/hr Q24H KEO Administration Protocol Ceftriaxone Sodium 1,000 mg/ 50 mls @ 100 mls/ hr 10/10/19 12:45 10/14/19 12:13 Sodium Chloride IV 100 mls/hr Q24H KEO Administration Protocol Morphine Sulfate 2 mg 10/09/19 18:28 Morphine IVP Q4H PRN SEVERE PAIN Multivitamins Ther apeutic 1 tab 10/10/19 09:00 10/14/19 08:37 Multivitamin Tab PO 1 tab DAILY KEO Administration Ondansetron HCl 4 mg 10/09/19 15:57 Zofran IVP Q6H PRN NAUSEA AND VOMITI NG Oxycodone HCl 5 mg 10/09/19 18:28 10/14/19 00:17 Oxycodone Ir PO 5 mg Q6H PRN Administration Pain Pantoprazole Sodiu m 40 mg 10/10/19 09:00 10/14/19 08:37 Protonix PO 40 mg DAILY KEO Administration Potassium Chloride 30 meq 10/10/19 09:00 10/14/19 08:37 Klor-Con 10 PO 30 meq DAILY KEO Administration Prednisone 60 mg 10/11/19 21:00 10/14/19 08:37 Prednisone PO 60 mg DAILY KEO Administration lisinopril Allergy (Unknown, Verified 10/09/19 14:30) Unknown niacin Allergy (Unknown, Verified 10/09/19 14:30) Unknown Vitals/I&O/Wt Last Vital Signs Temp 98.8 F 10/14/19 19:24 Pulse 66 10/14/19 19:24 Resp 19 H 10/14/19 19:24 BP 169/92 10/14/19 19:24 Pulse Ox 98 10/14/19 19:24 10/14/19 10/14/19 10/14/19 06:59 14:59 22:59 Intake Total 1020 / 1020 Output Total 400 / 400 Balance 1020 / 1020 -400 / 620 Weight last 48 hrs Weight 130.408 kg Weight 129.863 kg Physical Exam Const: COMMON NORMALS: no apparent distress and oriented x3 GENERAL APPEARANCE: cooperative and comfortable NUTRITIONAL APPEARANCE: obese morbidly obese ORIENTATION/CONSCIOUSNESS: Yes awake HENMT: COMMON NORMALS: normocephalic, head/scalp atraumatic and hearing grossly normal bilaterally HEAD & SCALP: normocephalic and atraumatic MOUTH: other (very hoarse voice) Eye: COMMON NORMALS: PERRL, EOMs intact bilaterally and conjunctivae normal CONJUNCTIVA: Yes conjunctivae normal PUPIL: Yes PERRL Neck/C-Spine: COMMON NORMALS: full ROM GENERAL: Yes normal visual inspection and Yes trachea midline Resp: COMMON NORMALS: normal respiratory effort, no retractions and no use of accessory muscles EFFORT & INSPECTION: Yes able to speak in complete sentences, Yes symmetric chest movement, No tachypneic, Yes actively coughing (harsh) productive (thick yellow sputum ) and hoarse and No tripod positioning AUSCULTATION: rhonchi throughout and wheezes (audible) OTHER: -on RA, saturating at 92% Cardio: COMMON NORMALS: regular rate, regular rhythm, S1 normal heart sound, S2 normal heart sound and no murmurs RATE: regular rate RHYTHM: regular rhythm HEART SOUNDS: S1 normal and S2 normal GI: COMMON NORMALS: normal to inspection, nondistended, normoactive bowel sounds, soft to palpation and non-tender INSPECTION: Yes central obesity PALPATION: Yes soft Back/Pelvis: COMMON NORMALS: thoracic and lumbar spine normal to inspection Extremity: COMMON NORMALS: normal to inspection, full ROM and no clubbing, cyanosis or edema; negative for no pedal edema Neuro: COMMON NORMALS: oriented x3, moves all extremities, no focal motor deficits and no sensory deficits noted Psych: COMMON NORMALS: mental status grossly normal, thought process normal, cooperative, affect normal and speech normal SPEECH: Yes normal speech THOUGHT PROCESS: normal thought process Skin: COMMON NORMALS: no rashes or lesions noted, no jaundice, no petechiae and no mottling GENERAL SKIN EXAM: no rashes or lesions noted Data : 10/14/19 05:05 10/14/19 05:05 Micro: Microbiology 10/09/19 12:32 Blood Culture - Final Blood NO GROWTH AFTER 5 DAYS 10/09/19 12:29 Blood Culture - Final Blood NO GROWTH AFTER 5 DAYS A&P Assessment and plan (1) Upper respiratory infection: -very hoarse voice clinically, quite ill appearing -CXR noted, negative, CT chest done showing bilateral pneumonitis in background of emphysema -continue Ceftriaxone and Azithromycin (day 5) -blood cx: prelim negative -sputum culture prelim mixed peter, gram stain growing GPC and GPRs -negative influenza screen, bacterial antigens, Legionella -denies sick contacts, recent travel, contact with known COVID-19 so no further testing at this time -associated sepsis given fever, hypoxia, ill appearance, tachypnea. Sepsis has resolved given hemodynamic stability, no fever x > 24 hrs, RR appropriate, on RA -continue to trend WBC; leukocytosis decreasing -close monitoring of respiratory status, supplemental oxygen as needed -repeat CXR (10/12) negative Status: Acute Qualifiers: URI type: unspecified URI Qualified Code(s): J06.9 - Acute upper respiratory infection, unspecified Code(s): J06.9 - Acute upper respiratory infection, unspecified (2) COPD (chronic obstructive pulmonary disease): -acute COPD exacerbation related to bilateral pneumonitis as noted above -on steroids, Duonebs PRN Status: Acute Qualifiers: COPD type: COPD with acute exacerbation Qualified Code(s): J44.1 - Chronic obstructive pulmonary disease with (acute) exacerbation Code(s): J44.9 - Chronic obstructive pulmonary disease, unspecified (3) Chronic back pain: -per med list, is on chronic oxycodone Status: Acute Qualifiers: Back pain location: low back pain Back pain laterality: unspecified Sciatica presence: unspecified whether sciatica present Qualified Code(s): M54.5 - Low back pain; G89.29 - Other chronic pain Code(s): M54.9 - Dorsalgia, unspecified; G89.29 - Other chronic pain (4) HTN (hypertension): -currently normotensive, borderline low BP in ED, received 500 mL bolus, gave additional 500 mL bolus -continue to monitor vital signs -d/c IVF as has good oral intake; encourage oral hydration Status: Acute Qualifiers: Hypertension type: essential hypertension Qualified Code(s): I10 - Essential (primary) hypertension Code(s): I10 - Essential (primary) hypertension (5) CAD (coronary artery disease): -has hx of CAD, continue statin, ASA Status: Acute Qualifiers: Coronary Disease-Associated Artery/Lesion type: [place] artery [place] vs. transplanted heart: [place] heart Associated angina: without angina Qualified Code(s): I25.10 - Atherosclerotic heart disease of [place] coronary artery without angina pectoris Code(s): I25.10 - Atherosclerotic heart disease of [place] coronary artery without angina pectoris (6) Hyperlipidemia: -continue statin Status: Acute Qualifiers: Hyperlipidemia type: unspecified Qualified Code(s): E78.5 - Hyperlipidemia, unspecified Code(s): E78.5 - Hyperlipidemia, unspecified (7) Morbid obesity: -BMI-40 kg/m2 Status: Acute Code(s): E66.01 - Morbid (severe) obesity due to excess calories Additional A&P Information -hx of chronic systolic CHF; Echo (06/2018): EF=45-50%, global LV hypokinesis, trace MR, trace TR, trace [place]; monitor for fluid overload with IV hydration -former smoker; quit >30 yrs ago -DAMIÁN on CKD unknown stage; unknown baseline Cr but available labs on record indicate prior Cr of 1.6; improved renal function today, resume diuretics, ARB -GERD, on PPI -Altered mental status resolved, off 1:1 monitoring -hx of myasthenia gravis; has chronic hoarseness of voice as a result of this -cardiac diet as tolerated -fall precautions, PT evaluation appreciated; HEP recommended -GI ppx with PPI -DVT ppx with heparin -Dispo: SNF, prefers [facility] -Code status: FULL code Attestations Medical Necessity Statement*: Patient requires hospitalization for continued treatment of bilateral pneumonitis, on dual antibiotic treatment, steroids. Time Spent in Patient Care: 16 - 35 minutes (>than 50% of time spent in counselling and/or direct pt care on unit). 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 transplanted heart: [place] heart Associated angina: without angina Hyperlipidemia E78.5 Hyperlipidemia type: unspecified Morbid obesity E66.01
[2019-10-14] MEDS: atorvastatin 40 mg Tablet 20 MG PO (20:19)
[2019-10-14] MEDS: cloNIDine 0.1 mg Tablet 0.2 MG PO (22:31)
[2019-10-14] MEDS: gabapentin 300 mg Capsule 600 MG PO (22:32)
[2019-10-15] VITALS (19 sets, daily range): BP systolic 126–176; BP diastolic 62–100; PULSE 50–89; RESP 18–20; TEMP 36.5–37.1; O2SAT 9–99
[2019-10-15] MEDS: oxyCODONE 5 mg IR Tab/Cap PO ×3 (06:08→20:59)
[2019-10-15] MEDS: benzonatate 100 mg Capsule PO ×3 (06:08→20:57)
[2019-10-15] MEDS: ipratropium-albuterol 3 mL Neb INHALATION ×5 (07:33→19:47)
[2019-10-15] MEDS: heparin 5,000 unit/mL INJ 1 mL 5000 UNIT SUBCUT ×2 (09:31→20:57)
[2019-10-15] MEDS: losartan 50 mg Tablet 100 MG PO (09:31)
[2019-10-15] MEDS: hydroCHLOROthiazide 25 mg Tablet PO (09:31)
[2019-10-15] MEDS: guaiFENesin 600 mg Tablet PO ×2 (09:31→17:37)
[2019-10-15] MEDS: predniSONE 20 mg Tablet 60 MG PO (09:32)
[2019-10-15] MEDS: pantoprazole DR 40 mg Tablet PO (09:32)
[2019-10-15] MEDS: aspirin 81 mg Chew Tablet PO (09:32)
[2019-10-15] MEDS: multivitamin therapeutic Tablet 1 TAB PO (09:37)
[2019-10-15] MEDS: cefTRIAXone 1,000 MG in sodium chloride 0.9% (plus) 50 ML 100 MG IV (12:15)
--- NOTE | 2019-10-15 15:02 | P.PN_ITS ---
Subjective Subjective: Interval history: Patient seen and examined, resting in bed, seems a little better today, productive cough persists but does not seem as harsh today. Continues to have diffuse wheezing. Case discussed briefly with Dr. Lott, suspects viral process, order viral panel. Patient is reconsidering going to [facility] due to restrictions in place, likely will go home. Medications: Reviewed: Yes Medication Review Details: Active Medications Generic Name Dose Route Start Last Admin Trade Name Freq PRN Reason Stop Dose Admin Acetaminophen 650 mg 10/09/19 15:57 10/09/19 21:16 Tylenol PO 650 mg Q6H PRN Administration Mild/Mod Pain Or Temp >/= 101 Albuterol/Ipratrop ium 3 ml 10/09/19 21:00 Duoneb INHALATION Q6H.RESPIRATORY P RN SHORTNESS OF KEVIN TH Albuterol/Ipratrop ium 3 ml 10/09/19 16:00 10/15/19 10:56 Duoneb INHALATION 3 ml QID.RESPIRATORY S CH Administration Aspirin 81 mg 10/10/19 09:00 10/15/19 09:32 Aspirin Chewable PO 81 mg DAILY KEO Administration Atorvastatin Calci um 20 mg 10/09/19 21:00 10/14/19 20:19 Lipitor PO 20 mg BEDTIME KEO Administration Benzocaine 1 each 10/09/19 18:28 Cepacol MUCOUS MEM Q2H PRN SORE THROAT Benzonatate 100 mg 10/09/19 18:28 10/15/19 14:31 Tessalon Pearls PO 100 mg TID PRN Administration COUGH Clonidine HCl 0.2 mg 10/09/19 21:00 10/14/19 22:31 Catapres PO 0.2 mg BEDTIME KEO Administration Gabapentin 600 mg 10/11/19 00:30 10/14/19 22:32 Neurontin PO 600 mg BEDTIME KEO Administration Guaifenesin 600 mg 10/09/19 18:28 10/15/19 09:31 Mucinex PO 600 mg BID KEO Administration Heparin Sodium (Be ef Lung) 5,000 unit 10/09/19 18:28 10/15/19 09:31 Heparin SUBCUT 5,000 unit Q12H KEO Administration Hydrochlorothiazid e 25 mg 10/15/19 09:00 10/15/19 09:31 Hctz PO 25 mg DAILY KEO Administration Azithromycin 500 m g/ Sodium 250 mls @ 250 mls /hr 10/09/19 17:15 10/14/19 17:33 Chloride IV 250 mls/hr Q24H KEO Administration Protocol Ceftriaxone Sodium 1,000 mg/ 50 mls @ 100 mls/ hr 10/10/19 12:45 10/15/19 12:15 Sodium Chloride IV 100 mls/hr Q24H KEO Administration Protocol Losartan Potassium 100 mg 10/15/19 09:00 10/15/19 09:31 Cozaar PO 100 mg DAILY KEO Administration Morphine Sulfate 2 mg 10/09/19 18:28 Morphine IVP Q4H PRN SEVERE PAIN Multivitamins Ther apeutic 1 tab 10/10/19 09:00 10/15/19 09:37 Multivitamin Tab PO 1 tab DAILY KEO Administration Ondansetron HCl 4 mg 10/09/19 15:57 Zofran IVP Q6H PRN NAUSEA AND VOMITI NG Oxycodone HCl 5 mg 10/09/19 18:28 10/15/19 14:31 Oxycodone Ir PO 5 mg Q6H PRN Administration Pain Pantoprazole [place] m 40 mg 10/10/19 09:00 10/15/19 09:32 Protonix PO 40 mg DAILY KEO Administration Potassium Chloride 30 meq 10/10/19 09:00 10/15/19 09:32 Klor-Con 10 PO 30 meq DAILY KEO Administration Prednisone 60 mg 10/11/19 21:00 10/15/19 09:32 Prednisone PO 60 mg DAILY KEO Administration lisinopril Allergy (Unknown, Verified 10/09/19 14:30) Unknown niacin Allergy (Unknown, Verified 10/09/19 14:30) Unknown Vitals/I&O/Wt Last Vital Signs Temp 98.1 F 10/15/19 11:50 Pulse 79 10/15/19 11:50 Resp 19 H 10/15/19 14:31 BP 172/85 10/15/19 11:50 Pulse Ox 94 10/15/19 11:50 10/15/19 10/15/19 10/15/19 06:59 14:59 22:59 Intake Total 225 / 225 Output Total 150 / 150 Balance 75 / 75 Weight last 48 hrs Weight 127.913 kg Weight 130.408 kg Physical Exam Const: COMMON NORMALS: no apparent distress and oriented x3 GENERAL APPEARANCE: cooperative and comfortable NUTRITIONAL APPEARANCE: obese morbidly obese ORIENTATION/CONSCIOUSNESS: Yes awake HENMT: COMMON NORMALS: normocephalic, head/scalp atraumatic and hearing grossly normal bilaterally HEAD & SCALP: normocephalic and atraumatic MOUTH: other (very hoarse voice) Eye: COMMON NORMALS: PERRL, EOMs intact bilaterally and conjunctivae normal CONJUNCTIVA: Yes conjunctivae normal PUPIL: Yes PERRL Neck/C-Spine: COMMON NORMALS: full ROM GENERAL: Yes normal visual inspection and Yes trachea midline Resp: COMMON NORMALS: normal respiratory effort, no retractions and no use of accessory muscles EFFORT & INSPECTION: Yes able to speak in complete sentences, Yes symmetric chest movement, No tachypneic, Yes actively coughing (harsh) productive (thick yellow sputum ) and hoarse and No tripod positioning AUSCULTATION: rhonchi throughout and wheezes (audible) OTHER: -on RA, saturating at 92% Cardio: COMMON NORMALS: regular rate, regular rhythm, S1 normal heart sound, S2 normal heart sound and no murmurs RATE: regular rate RHYTHM: regular rhythm HEART SOUNDS: S1 normal and S2 normal GI: COMMON NORMALS: normal to inspection, nondistended, normoactive bowel sounds, soft to palpation and non-tender INSPECTION: Yes central obesity PALPATION: Yes soft Back/Pelvis: COMMON NORMALS: thoracic and lumbar spine normal to inspection Extremity: COMMON NORMALS: normal to inspection, full ROM and no clubbing, cyanosis or edema; negative for no pedal edema Neuro: COMMON NORMALS: oriented x3, moves all extremities, no focal motor deficits and no sensory deficits noted Psych: COMMON NORMALS: mental status grossly normal, thought process normal, cooperative, affect normal and speech normal SPEECH: Yes normal speech THOUGHT PROCESS: normal thought process Skin: COMMON NORMALS: no rashes or lesions noted, no jaundice, no petechiae and no mottling GENERAL SKIN EXAM: no rashes or lesions noted Data : 10/14/19 05:05 10/14/19 05:05 Micro: Microbiology 10/09/19 12:32 Blood Culture - Final Blood NO GROWTH AFTER 5 DAYS 10/09/19 12:29 Blood Culture - Final Blood NO GROWTH AFTER 5 DAYS A&P Assessment and plan (1) Upper respiratory infection: -very hoarse voice clinically, quite ill appearing -CXR noted, negative, CT chest done showing bilateral pneumonitis in background of emphysema -continue Ceftriaxone and Azithromycin (day 6); will discontinue as no significant improvement with several days of treatment and likely viral process -blood cx: prelim negative -sputum culture prelim mixed peter, gram stain growing GPC and GPRs -negative influenza screen, bacterial antigens, Legionella -denies sick contacts, recent travel, contact with known COVID-19 so no further testing at this time -associated sepsis given fever, hypoxia, ill appearance, tachypnea. Sepsis has resolved given hemodynamic stability, no fever x > 24 hrs, RR appropriate, on RA -continue to trend WBC; leukocytosis decreasing -close monitoring of respiratory status, supplemental oxygen as needed -repeat CXR (10/12) negative -per discussion with Dr. Lott, will order viral panel Status: Acute Qualifiers: URI type: unspecified URI Qualified Code(s): J06.9 - Acute upper respiratory infection, unspecified Code(s): J06.9 - Acute upper respiratory infection, unspecified (2) COPD (chronic obstructive pulmonary disease): -acute COPD exacerbation related to bilateral pneumonitis as noted above; acute exacerbation resolved -on steroids, Duonebs PRN Status: Acute Qualifiers: COPD type: COPD with acute exacerbation Qualified Code(s): J44.1 - [place] obstructive pulmonary disease with (acute) exacerbation Code(s): J44.9 - Chronic obstructive pulmonary disease, unspecified (3) Chronic back pain: -per med list, is on chronic oxycodone Status: Acute Qualifiers: Back pain laterality: unspecified Back pain location: low back pain Sciatica presence: unspecified whether sciatica present Qualified Code(s): M54.5 - Low back pain; G89.29 - Other chronic pain Code(s): M54.9 - Dorsalgia, unspecified; G89.29 - Other chronic pain (4) HTN (hypertension): -currently normotensive, borderline low BP in ED, received 500 mL bolus, gave additional 500 mL bolus -continue to monitor vital signs -d/c IVF as has good oral intake; encourage oral hydration Status: Acute Qualifiers: Hypertension type: essential hypertension Qualified Code(s): I10 - Essential (primary) hypertension Code(s): I10 - Essential (primary) hypertension (5) CAD (coronary artery disease): -has hx of CAD, continue statin, ASA Status: Acute Qualifiers: Associated angina: without angina Coronary Disease-Associated Artery/ Lesion type: [place] artery [place] vs. transplanted heart: [place] heart Qualified Code(s): I25.10 - Atherosclerotic heart disease of [place] coronary artery without angina pectoris Code(s): I25.10 - Atherosclerotic heart disease of [place] coronary artery without angina pectoris (6) Hyperlipidemia: -continue statin Status: Acute Qualifiers: Hyperlipidemia type: unspecified Qualified Code(s): E78.5 - Hyperlipidemia, unspecified Code(s): E78.5 - Hyperlipidemia, unspecified (7) Morbid obesity: -BMI-42 kg/m2 Status: Acute Code(s): E66.01 - Morbid (severe) obesity due to excess calories Additional A&P Information -hx of chronic systolic CHF; Echo (06/2018): EF=45-50%, global LV hypokinesis, trace MR, trace TR, trace [place]; monitor for fluid overload with IV hydration -former smoker; quit >30 yrs ago -DAMIÁN on CKD unknown stage; unknown baseline Cr but available labs on record indicate prior Cr of 1.6; improved renal function today, resume diuretics, ARB -GERD, on PPI -Altered mental status resolved, off 1:1 monitoring -hx of myasthenia gravis; has chronic hoarseness of voice as a result of this -cardiac diet as tolerated -fall precautions, PT evaluation appreciated; HEP recommended -GI ppx with PPI -DVT ppx with heparin -Dispo: SNF, prefers [facility]; now reconsidering SNF and wants to go home instead potentially with outpatient therapy. Anticipate discharge in 24-48 hrs. -Code status: FULL code Attestations Medical Necessity Statement*: Patient requires hospitalization for continued management of bilateral pneumonitis. Time Spent in Patient Care: 16 - 35 minutes (>than 50% of time spent in counselling and/or direct pt care on unit) . 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 transplanted heart: [place] heart Hyperlipidemia E78.5 Hyperlipidemia type: unspecified Morbid obesity E66.01
[2019-10-15] MEDS: azithromycin 500 MG in sodium chloride 0.9% 250 ML 250 MG IV (17:37)
[2019-10-15] MEDS: gabapentin 300 mg Capsule 600 MG PO (20:57)
[2019-10-15] MEDS: atorvastatin 40 mg Tablet 20 MG PO (20:58)
[2019-10-15] MEDS: cloNIDine 0.1 mg Tablet 0.2 MG PO (21:11)
[2019-10-16] VITALS (20 sets, daily range): BP systolic 124–173; BP diastolic 74–85; PULSE 46–78; RESP 17–20; TEMP 36.3–37.1; O2SAT 95–100; BMI 41.6
[2019-10-16] MEDS: ipratropium-albuterol 3 mL Neb INHALATION ×4 (07:47→20:15)
[2019-10-16] MEDS: heparin 5,000 unit/mL INJ 1 mL 5000 UNIT SUBCUT ×2 (08:25→21:38)
[2019-10-16] MEDS: aspirin 81 mg Chew Tablet PO (08:27)
[2019-10-16] MEDS: cloNIDine 0.1 mg Tablet 0.2 MG PO ×2 (08:28→18:26)
[2019-10-16] MEDS: hydroCHLOROthiazide 25 mg Tablet PO (08:28)
[2019-10-16] MEDS: guaiFENesin 600 mg Tablet PO ×2 (08:28→18:26)
[2019-10-16] MEDS: pantoprazole DR 40 mg Tablet PO (08:29)
[2019-10-16] MEDS: multivitamin therapeutic Tablet 1 TAB PO (08:29)
[2019-10-16] MEDS: losartan 50 mg Tablet 100 MG PO (08:29)
[2019-10-16] MEDS: benzonatate 100 mg Capsule PO ×3 (08:30→21:42)
[2019-10-16] MEDS: oxyCODONE 5 mg IR Tab/Cap PO ×3 (08:31→21:43)
--- NOTE | 2019-10-16 12:07 | PC.SOCIAL ---
IMM Updated Updated pt on Pg 2 IMM. NO questions voiced. Provided pt a copy & left on their bedside table. Signed, dated, & timed copy in chart.
--- NOTE | 2019-10-16 15:29 | P.PN_ITS ---
Subjective Subjective: Interval history: Patient seen and examined, resting in bed, was unable to sleep last night, does feel a little better today and cough seems to be less persistent. Confirmed that he will be able to have outpatient therapy and still desires to go home on discharge. Is not quite comfortable going home today, anticipates being able to go home early tomorrow morning. No acute overnight events reported. Medications: Reviewed: Yes Medication Review Details: Active Medications Generic Name Dose Route Start Last Admin Trade Name Freq PRN Reason Stop Dose Admin Acetaminophen 650 mg 10/09/19 15:57 10/09/19 21:16 Tylenol PO 650 mg Q6H PRN Administration Mild/Mod Pain Or Temp >/= 101 Albuterol/Ipratrop ium 3 ml 10/09/19 21:00 Duoneb INHALATION Q6H.RESPIRATORY P RN SHORTNESS OF KEVIN TH Albuterol/Ipratrop ium 3 ml 10/09/19 16:00 10/16/19 12:58 Duoneb INHALATION 3 ml QID.RESPIRATORY S CH Administration Aspirin 81 mg 10/10/19 09:00 10/16/19 08:27 Aspirin Chewable PO 81 mg DAILY KEO Administration Atorvastatin Calci um 20 mg 10/09/19 21:00 10/15/19 20:58 Lipitor PO 20 mg BEDTIME KEO Administration Benzocaine 1 each 10/09/19 18:28 Cepacol MUCOUS MEM Q2H PRN SORE THROAT Benzonatate 100 mg 10/09/19 18:28 10/16/19 14:14 Tessalon Pearls PO 100 mg TID PRN Administration COUGH Clonidine HCl 0.2 mg 10/15/19 21:00 10/16/19 08:28 Catapres PO 0.2 mg BID KEO Administration Gabapentin 600 mg 10/11/19 00:30 10/15/19 20:57 Neurontin PO 600 mg BEDTIME KEO Administration Guaifenesin 600 mg 10/09/19 18:28 10/16/19 08:28 Mucinex PO 600 mg BID KEO Administration Heparin Sodium (Be ef Lung) 5,000 unit 10/09/19 18:28 10/16/19 08:25 Heparin SUBCUT 5,000 unit Q12H KEO Administration Hydrochlorothiazid e 25 mg 10/16/19 09:00 10/16/19 08:28 Hctz PO 25 mg DAILY KEO Administration Losartan Potassium 100 mg 10/15/19 09:00 10/16/19 08:29 Cozaar PO 100 mg DAILY KEO Administration Morphine Sulfate 2 mg 10/09/19 18:28 Morphine IVP Q4H PRN SEVERE PAIN Multivitamins Ther apeutic 1 tab 10/10/19 09:00 10/16/19 08:29 Multivitamin Tab PO 1 tab DAILY KEO Administration Ondansetron HCl 4 mg 10/09/19 15:57 Zofran IVP Q6H PRN NAUSEA AND VOMITI NG Oxycodone HCl 5 mg 10/09/19 18:28 10/16/19 14:13 Oxycodone Ir PO 5 mg Q6H PRN Administration Pain Pantoprazole Sodiu m 40 mg 10/10/19 09:00 10/16/19 08:29 Protonix PO 40 mg DAILY KEO Administration Potassium Chloride 30 meq 10/10/19 09:00 10/16/19 08:29 Klor-Con 10 PO 30 meq DAILY KEO Administration lisinopril Allergy (Unknown, Verified 10/09/19 14:30) Unknown niacin Allergy (Unknown, Verified 10/09/19 14:30) Unknown Vitals/I&O/Wt Last Vital Signs Temp 98.3 F 10/16/19 12:00 Pulse 76 10/16/19 13:03 Resp 18 10/16/19 14:13 BP 146/75 10/16/19 12:00 Pulse Ox 96 10/16/19 13:03 10/16/19 10/16/19 10/16/19 06:59 14:59 22:59 Intake Total 555 / 1780 780 / 780 Balance 555 / 1030 780 / 780 Weight last 48 hrs Weight 127.913 kg Weight 127.913 kg Physical Exam Const: COMMON NORMALS: no apparent distress and oriented x3 GENERAL APPEARANCE: cooperative and comfortable NUTRITIONAL APPEARANCE: obese morbidly obese ORIENTATION/CONSCIOUSNESS: Yes awake HENMT: COMMON NORMALS: normocephalic, head/scalp atraumatic and hearing grossly normal bilaterally HEAD & SCALP: normocephalic and atraumatic MOUTH: other (very hoarse voice) Eye: COMMON NORMALS: PERRL, EOMs intact bilaterally and conjunctivae normal CONJUNCTIVA: Yes conjunctivae normal PUPIL: Yes PERRL Neck/C-Spine: COMMON NORMALS: full ROM GENERAL: Yes normal visual inspection and Yes trachea midline Resp: COMMON NORMALS: normal respiratory effort, no retractions and no use of accessory muscles EFFORT & INSPECTION: Yes able to speak in complete sentences, Yes symmetric chest movement, No tachypneic, Yes actively coughing (harsh) productive (thick yellow sputum ) and hoarse and No tripod positioning AUSCULTATION: rhonchi throughout and wheezes (audible) OTHER: -on RA, saturating at 96% Cardio: COMMON NORMALS: regular rate, regular rhythm, S1 normal heart sound, S2 normal heart sound and no murmurs RATE: regular rate RHYTHM: regular rhythm HEART SOUNDS: S1 normal and S2 normal GI: COMMON NORMALS: normal to inspection, nondistended, normoactive bowel sounds, soft to palpation and non-tender INSPECTION: Yes central obesity PALPATION: Yes soft Back/Pelvis: COMMON NORMALS: thoracic and lumbar spine normal to inspection Extremity: COMMON NORMALS: normal to inspection, full ROM and no clubbing, cyanosis or edema; negative for no pedal edema Neuro: COMMON NORMALS: oriented x3, moves all extremities, no focal motor deficits and no sensory deficits noted Psych: COMMON NORMALS: mental status grossly normal, thought process normal, cooperative, affect normal and speech normal SPEECH: Yes normal speech THOUGHT PROCESS: normal thought process Skin: COMMON NORMALS: no rashes or lesions noted, no jaundice, no petechiae and no mottling GENERAL SKIN EXAM: no rashes or lesions noted Data : 10/14/19 05:05 10/14/19 05:05 A&P Assessment and plan (1) Upper respiratory infection: -very hoarse voice clinically, quite ill appearing -CXR noted, negative, CT chest done showing bilateral pneumonitis in background of emphysema -off Ceftriaxone and Azithromycin (x 6 days); will discontinue as no significant improvement with several days of treatment and likely viral process -blood cx: prelim negative -sputum culture prelim mixed peter, gram stain growing GPC and GPRs -negative influenza screen, bacterial antigens, Legionella -denies sick contacts, recent travel, contact with known COVID-19 so no further testing at this time -associated sepsis given fever, hypoxia, ill appearance, tachypnea. Sepsis has resolved given hemodynamic stability, no fever x > 24 hrs, RR appropriate, on RA -continue to trend WBC; leukocytosis decreasing -close monitoring of respiratory status, supplemental oxygen as needed -repeat CXR (10/12) negative -per discussion with Dr. Lott, will order viral panel, pending results Status: Acute Qualifiers: URI type: unspecified URI Qualified Code(s): J06.9 - Acute upper respiratory infection, unspecified Code(s): J06.9 - Acute upper respiratory infection, unspecified (2) COPD (chronic obstructive pulmonary disease): -acute COPD exacerbation related to bilateral pneumonitis as noted above; acute exacerbation resolved -on steroids, Duonebs PRN Status: Acute Qualifiers: COPD type: COPD with acute exacerbation Qualified Code(s): J44.1 - Chronic obstructive pulmonary disease with (acute) exacerbation Code(s): J44.9 - Chronic obstructive pulmonary disease, unspecified (3) Chronic back pain: -per med list, is on chronic oxycodone Status: Acute Qualifiers: Back pain location: low back pain Back pain laterality: unspecified Sciatica presence: unspecified whether sciatica present Qualified Code(s): M54.5 - Low back pain; G89.29 - Other chronic pain Code(s): M54.9 - Dorsalgia, unspecified; G89.29 - Other chronic pain (4) HTN (hypertension): -currently normotensive, borderline low BP in ED, received 500 mL bolus, gave additional 500 mL bolus -continue to monitor vital signs -d/c IVF as has good oral intake; encourage oral hydration Status: Acute Qualifiers: Hypertension type: essential hypertension Qualified Code(s): I10 - Essential (primary) hypertension Code(s): I10 - Essential (primary) hypertension (5) CAD (coronary artery disease): -has hx of CAD, continue statin, ASA Status: Acute Qualifiers: Coronary Disease-Associated Artery/Lesion type: [place] artery [place] vs. transplanted heart: [place] heart Associated angina: without angina Qualified Code(s): I25.10 - Atherosclerotic heart disease of [place] coronary artery without angina pectoris Code(s): I25.10 - Atherosclerotic heart disease of [place] coronary artery without angina pectoris (6) Hyperlipidemia: -continue statin Status: Acute Qualifiers: Hyperlipidemia type: unspecified Qualified Code(s): E78.5 - Hyperlipidemia, unspecified Code(s): E78.5 - Hyperlipidemia, unspecified (7) Morbid obesity: -BMI-42 kg/m2 Status: Acute Code(s): E66.01 - Morbid (severe) obesity due to excess calories Additional A&P Information -hx of chronic systolic CHF; Echo (06/2018): EF=45-50%, global LV hypokinesis, trace MR, trace TR, trace DE; monitor for fluid overload with IV hydration -former smoker; quit >30 yrs ago -DAMIÁN on CKD unknown stage; unknown baseline Cr but available labs on record indicate prior Cr of 1.6; improved renal function today, resume diuretics, ARB -GERD, on PPI -Altered mental status resolved, off 1:1 monitoring -hx of myasthenia gravis; has chronic hoarseness of voice as a result of this -cardiac diet as tolerated -fall precautions, PT evaluation appreciated; HEP recommended -GI ppx with PPI -DVT ppx with heparin -Dispo: previously wanted SNF, now reconsidered and wants to go home instead with outpatient therapy. Anticipate discharge in 24-48 hrs. -Code status: FULL code Attestations Medical Necessity Statement*: Patient requires hospitalization for continued monitoring of respiratory status and management of bilateral pneumonitis. Time Spent in Patient Care: 16 - 35 minutes (>than 50% of time spent in counselling and/or direct pt care on unit) . Coding Level of Care Code Acute Power System Electrical Engineer for Vitaliy Fwd Diagnoses Upper respiratory infection J06.9 URI type: unspecified URI COPD (chronic obstructive pulmonary disease) J44.1 COPD type: COPD with acute exacerbation Chronic back pain M54.5; G89.29 Back pain location: low back pain Back pain laterality: unspecified Sciatica presence: unspecified whether sciatica present HTN (hypertension) I10 Hypertension type: essential hypertension CAD (coronary artery disease) I25.10 Coronary Disease-Associated Artery/Lesion type: [place] artery [place] vs. transplanted heart: [place] heart Associated angina: without angina Hyperlipidemia E78.5 Hyperlipidemia type: unspecified Morbid obesity E66.01
[2019-10-16] MEDS: atorvastatin 40 mg Tablet 20 MG PO (21:41)
[2019-10-16] MEDS: gabapentin 300 mg Capsule 600 MG PO (21:42)
[2019-10-17] VITALS (8 sets, daily range): BP systolic 141–156; BP diastolic 75–77; PULSE 50–87; RESP 18–20; TEMP 36.3–36.8; O2SAT 98–100; BMI 40.6
--- NOTE | 2019-10-17 07:50 | PM.DCS ---
Discharge Providers Date of Admission: 10/09/19 17:27 Date of Discharge: October 17, 2019 Attending Provider at Admission: Haylee Cain MD Attending Provider at Discharge: Haylee Cain MD Primary Care Provider: Brandon Rousseau, Diagnoses at Discharge Discharge Diagnosis (1) Upper respiratory infection: Status: Acute Problem details: -very hoarse voice clinically, quite ill appearing -CXR noted, negative, CT chest done showing bilateral pneumonitis in background of emphysema -off Ceftriaxone and Azithromycin (x 6 days); will discontinue as no significant improvement with several days of treatment and likely viral process -blood cx: prelim negative -sputum culture prelim mixed peter, gram stain growing GPC and GPRs -negative influenza screen, bacterial antigens, Legionella -denies sick contacts, recent travel, contact with known COVID-19 so no further testing at this time -associated sepsis given fever, hypoxia, ill appearance, tachypnea. Sepsis has resolved given hemodynamic stability, no fever x > 24 hrs, RR appropriate, on RA -continue to trend WBC; leukocytosis decreasing -close monitoring of respiratory status, supplemental oxygen as needed -repeat CXR (10/12) negative -per discussion with Dr. Lott, will order viral panel, pending results Qualifiers: URI type: unspecified URI Qualified Code(s): J06.9 - Acute upper respiratory infection, unspecified (2) COPD (chronic obstructive pulmonary disease): Status: Chronic Problem details: -acute COPD exacerbation related to bilateral pneumonitis as noted above; acute exacerbation resolved -off steroids, Duonebs PRN Qualifiers: COPD type: COPD with acute exacerbation Qualified Code(s): J44.1 - Chronic obstructive pulmonary disease with (acute) exacerbation (3) Chronic back pain: Status: Chronic Problem details: -per med list, is on chronic oxycodone Qualifiers: Back pain location: low back pain Back pain laterality: unspecified Sciatica presence: unspecified whether sciatica present Qualified Code(s): M54.5 - Low back pain; G89.29 - Other chronic pain (4) HTN (hypertension): Status: Chronic Problem details: -currently normotensive, borderline low BP in ED, received 500 mL bolus, gave additional 500 mL bolus -continue to monitor vital signs -d/c IVF as has good oral intake; encourage oral hydration Qualifiers: Hypertension type: essential hypertension Qualified Code(s): I10 - Essential (primary) hypertension (5) CAD (coronary artery disease): Status: Chronic Problem details: -has hx of CAD, continue statin, ASA Qualifiers: Coronary Disease-Associated Artery/Lesion type: [place] artery [place] vs. transplanted heart: [place] heart Associated angina: without angina Qualified Code(s): I25.10 - Atherosclerotic heart disease of [place] coronary artery without angina pectoris (6) Hyperlipidemia: Status: Chronic Problem details: -continue statin Qualifiers: Hyperlipidemia type: unspecified Qualified Code(s): E78.5 - Hyperlipidemia, unspecified (7) Morbid obesity: Status: Chronic Problem details: -BMI-41 kg/m2 Other Information Additional DC diagnoses/information: -hx of chronic systolic CHF; Echo (06/2018): EF=45-50%, global LV hypokinesis, trace MR, trace TR, trace [place]; monitor for fluid overload with IV hydration -former smoker; quit >30 yrs ago -DAMIÁN on CKD unknown stage; unknown baseline Cr but available labs on record indicate prior Cr of 1.6; improved renal function today, resumed diuretics, ARB -GERD, on PPI -Altered mental status resolved, off 1:1 monitoring -hx of myasthenia gravis; has chronic hoarseness of voice as a result of this Reason for Visit Reason for Visit: Reason For Visit: productive cough, SOB Hospital Course Hospital Course: Patient was quite ill-appearing on initial assessment in the ER so was admitted to the ICU for close monitoring of his respiratory status. He initially required CPAP with supplemental oxygen use and was started on empiric antibiotic therapy. He did not meet the criteria for COVID-19 testing but was screened for influenza which was negative. Bacterial antigens, Legionella were also negative, blood cultures have been negative and sputum culture has grown mixed respiratory peter. He was also on steroids and nebulizer treatments and very gradually has improved though continues to have a persistent cough. He is no longer requiring supplemental oxygen but continues to use CPAP at night. Overall his air entry has improved, he has decreased wheezing and rhonchi as well as decreased expectoration. I briefly discussed the case with Dr. Lott and he recommended screening for viral etiologies, this is pending. I have since discontinued antibiotic treatment secondary to suspicion for viral process and due to minimal improvement while on antibiotic treatment. Initial disposition was SNF, patient had chosen [facility] but with improvement clinically and given restrictions in place secondary to COVID-19, he has opted to go home with outpatient PT. He is feeling better today, and would like to go home. He has some help at home from his grandson but is otherwise quite independent. He has been hemodynamically stable, initially held his oral antihypertensives due to renal impairment but have since resumed these. He has been intermittently bradycardic but asymptomatic, is not on beta blockers at baseline. He has been afebrile, leukcoytosis has been trending down and afebrile. He already has a scheduled appointment with PCP on 10/22/19 which I have encouraged him to keep. He is to avoid sick contacts particularly in light of COVID-19. He is encouraged to seek medical attention immediately if his symptoms worsen. Discharge Summary: -Patient to keep scheduled appointment with primary care physician on 10/22/19 Physical Exam Const: COMMON NORMALS: no apparent distress and oriented x3 GENERAL APPEARANCE: cooperative and comfortable NUTRITIONAL APPEARANCE: obese morbidly obese ORIENTATION/CONSCIOUSNESS: Yes awake HENMT: COMMON NORMALS: normocephalic, head/scalp atraumatic and hearing grossly normal bilaterally HEAD & SCALP: normocephalic and atraumatic MOUTH: other (very hoarse voice) Eye: COMMON NORMALS: PERRL, EOMs intact bilaterally and conjunctivae normal CONJUNCTIVA: Yes conjunctivae normal PUPIL: Yes PERRL Neck/C-Spine: COMMON NORMALS: full ROM GENERAL: Yes normal visual inspection and Yes trachea midline Resp: COMMON NORMALS: normal respiratory effort, no retractions and no use of accessory muscles EFFORT & INSPECTION: Yes able to speak in complete sentences, Yes symmetric chest movement, No tachypneic, Yes actively coughing (harsh) productive (thick yellow sputum ) and hoarse and No tripod positioning AUSCULTATION: rhonchi throughout and wheezes (audible) OTHER: -on RA, saturating at 96% -overall, air entry is improving, decreased wheezing, decreased frequency of cough and less expectoration Cardio: COMMON NORMALS: regular rate, regular rhythm, S1 normal heart sound, S2 normal heart sound and no murmurs RATE: regular rate and bradycardic (intermittently) RHYTHM: regular rhythm HEART SOUNDS: S1 normal and S2 normal GI: COMMON NORMALS: normal to inspection, nondistended, normoactive bowel sounds, soft to palpation and non-tender INSPECTION: Yes central obesity PALPATION: Yes soft Back/Pelvis: COMMON NORMALS: thoracic and lumbar spine normal to inspection Extremity: COMMON NORMALS: normal to inspection, full ROM and no clubbing, cyanosis or edema; negative for no pedal edema Neuro: COMMON NORMALS: oriented x3, moves all extremities, no focal motor deficits and no sensory deficits noted Psych: COMMON NORMALS: mental status grossly normal, thought process normal, cooperative, affect normal and speech normal SPEECH: Yes normal speech THOUGHT PROCESS: normal thought process Skin: COMMON NORMALS: no rashes or lesions noted, no jaundice, no petechiae and no mottling GENERAL SKIN EXAM: no rashes or lesions noted Discharge Data Data Completed and Pending: Completed Studies During Hospitalization Category Date Time Status CT chest wo con 7 1250 Urgent Cat Scan 10/09/19 17:50 Completed XR chest 1V stefan ble [id number] Urgent Exams 10/09/19 12:09 Completed XR chest 1V stefan ble [id number] Urgent Exams 10/13/19 15:21 Completed Pending at discharge Category Date Time Status Respiratory Viral Panel PCR Routine Lab 10/15/19 19:41 Received Vitals: Last Vital Signs Temp 97.4 F L 10/17/19 04:00 Pulse 50 L 10/17/19 04:00 Resp 18 10/17/19 04:00 BP 156/77 10/17/19 04:00 Pulse Ox 100 10/17/19 04:00 Discharge Plan Discharge Patient Disposition: Home, Self-Care Condition: Stable Prescriptions: New albuterol sulfate 90 mcg/actuation HFA aerosol inhaler 2 inh INHALATION Q6H PRN (Reason: dyspnea) Qty: 8.5 RF: 0 benzonatate 100 mg Capsule 100 mg PO TID PRN (Reason: Cough) Qty: 30 RF: 0 guaifenesin [Mucinex] 600 mg Tablet Extended Release 12hr 600 mg PO BID Qty: 30 RF: 0 Continued Multiple Vitamins Tablet 1 tab PO DAILY RF: 0 pravastatin 40 mg Tablet 40 mg PO QPM RF: 0 sildenafil 100 mg Tablet See Rx Instructions .ROUTE .COMPLEX RF: 0 clonidine HCl 0.2 mg Tablet 0.2 mg PO BEDTIME RF: 0 Norvasc 10 mg Tablet 10 mg PO DAILY RF: 0 gabapentin 300 mg Capsule 600 mg PO BEDTIME RF: 0 omeprazole 20 mg Capsule,Delayed Release(Dr/Ec) 20 mg PO DAILY RF: 0 aspirin 81 mg Tablet,Chewable 81 mg PO DAILY RF: 0 hydrochlorothiazide 25 mg Tablet 50 mg PO DAILY RF: 0 albuterol sulfate 90 mcg/actuation Hfa Aerosol Inhaler 2 puff INHALATION QID PRN (Reason: Shortness Of Breath) RF: 0 losartan 100 mg Tablet 100 mg PO DAILY RF: 0 oxycodone 5 mg Tablet 5 mg PO Q6H PRN (Reason: Pain) RF: 0 potassium chloride 20 mEq Tablet Extended Release 30 meq PO DAILY RF: 0 albuterol sulfate 2.5 mg /3 mL (0.083 %) Solution For Nebulization 2.5 mg INHALATION Q6H PRN (Reason: Shortness Of Breath) Qty: 30 RF: 0 Discharge Orders: Discharge Order (Routine); Ordered 10/17/19 Ordered By: Haylee Cain Other Ambulatory Orders: Physical Therapy Eval and Treat Outpatient (Order) Timeframe: 1 Week Facility: [facility] - Location: Physical Therapy Ordered By: Haylee Cain Referrals: Brandon Rousseau DO [Primary Care Provider] - 10/22/19 10:00 am (Please keep your scheduled appointment on Tuesday10/22/19) Discharge Diet: Cardiac Discharge Activity: Resume usual activity Discharge Attestations Time Spent in Discharge Care*: greater than 30 min Specific Discharge Activities: Specific discharge activities: educating patient, discussing with pcp/other providers, discussing with patient case manager/social workers/dc planners, documenting/other paperwork and evaluating patient/reviewing data Status at Discharge: Cognitive status at discharge: cognitively intact, Behavioral status at discharge: cooperative, Functional status at discharge: independent ambulation Overall status at discharge: patient is back to baseline Quality Metrics Clinical Quality Measures During this hospital stay, did patient experience: None Coding Level of Care Code Acute Spindle Frame Carver for Vitaliy Jane Diagnoses Upper respiratory infection J06.9 URI type: unspecified URI COPD (chronic obstructive pulmonary disease) J44.1 COPD type: COPD with acute exacerbation Chronic back pain M54.5; G89.29 Back pain location: low back pain Back pain laterality: unspecified Sciatica presence: unspecified whether sciatica present HTN (hypertension) I10 Hypertension type: essential hypertension CAD (coronary artery disease) I25.10 Coronary Disease-Associated Artery/Lesion type: [place] artery [place] vs. transplanted heart: [place] heart Associated angina: without angina Hyperlipidemia E78.5 Hyperlipidemia type: unspecified Morbid obesity E66.01
[2019-10-17] MEDS: ipratropium-albuterol 3 mL Neb INHALATION (08:13)
[2019-10-17] MEDS: heparin 5,000 unit/mL INJ 1 mL 5000 UNIT SUBCUT (08:29)
[2019-10-17] MEDS: losartan 50 mg Tablet 100 MG PO (08:30)
[2019-10-17] MEDS: benzonatate 100 mg Capsule PO (08:31)
[2019-10-17] MEDS: hydroCHLOROthiazide 25 mg Tablet PO (08:31)
[2019-10-17] MEDS: multivitamin therapeutic Tablet 1 TAB PO (08:31)
[2019-10-17] MEDS: cloNIDine 0.1 mg Tablet 0.2 MG PO (08:32)
[2019-10-17] MEDS: aspirin 81 mg Chew Tablet PO (08:32)
[2019-10-17] MEDS: guaiFENesin 600 mg Tablet PO (08:32)
[2019-10-17] MEDS: oxyCODONE 5 mg IR Tab/Cap PO (08:33)
[2019-10-17] MEDS: pantoprazole DR 40 mg Tablet PO (08:33)
[2019-10-30 22:41] LABS: Adenovirus Not Detected (Not Detected); Human Metapneumovirus Not Detected (Not Detected); Human Parainflu Virus 1 Not Detected (Not Detected); Human Parainflu Virus 2 Not Detected (Not Detected); Human Parainflu Virus 3 Not Detected (Not Detected); Human Rsv A Not Detected (Not Detected); Influenza A Not Detected (Not Detected); Influenza B Not Detected (Not Detected); Rhinovirus/Enterovirus Not Detected (Not Detected)
== END 2019-10-17 11:10 | disposition home or self-care (01) | DRG 871 ==
LOC: ER 13:47 → MEDSURG 17:59 → ICU 10-10 06:40 → MEDSURG 10-11 17:31
PROVIDERS: Admitting Provider Family Medicine; Emergency Provider Family Medicine; Family Provider Emergency Medicine Emergency Medical Services; PCP Emergency Medicine Emergency Medical Services; Visit Provider Family Medicine
DX: A41.9 Sepsis, unspecified organism (principal); J12.9 Viral pneumonia, unspecified; J44.1 Chronic obstructive pulmonary disease with (acute) exacerbation; N17.9 Acute kidney failure, unspecified; Z68.41 Body mass index [BMI] 40.0-44.9, adult; J44.0 Chronic obstructive pulmonary disease with (acute) lower respiratory infection; M54.5 Low back pain; G89.29 Other chronic pain; F45.42 Pain disorder with related psychological factors; I25.10 Atherosclerotic heart disease of native coronary artery without angina pectoris; E78.5 Hyperlipidemia, unspecified; E66.01 Morbid (severe) obesity due to excess calories; K21.9 Gastro-esophageal reflux disease without esophagitis; R09.02 Hypoxemia; Z87.891 Personal history of nicotine dependence; Z79.82 Long term (current) use of aspirin; Z79.52 Long term (current) use of systemic steroids; Z79.899 Other long term (current) drug therapy; Z79.83 Long term (current) use of bisphosphonates; Z79.4 Long term (current) use of insulin
CPT/HCPCS: 12345; 36415; 71045; 71250; 80048; 80053; 81003; 82803; 83605; 83880; 84145; 85025; 86403; 87040; 87070; 87205; 87449; 87804; 94640; 96372; 96375; 97116; 97161; 99283; J0456; J0696; J1644; J2920; J2930; J7030; J7040; J7050; J7512

== ENCOUNTER 2019-11-28 06:00 | Outpatient (RCR) | payer OTHER, SELFPAY | END 2019-12-23 23:59 | disposition home or self-care (01) | LOC: WPT 06:00 | PROVIDERS: Family Provider Emergency Medicine Emergency Medical Services; PCP Emergency Medicine Emergency Medical Services; Referring Provider Emergency Medicine Emergency Medical Services; Visit Provider Emergency Medicine Emergency Medical Services | DX: R53.1 Weakness (principal); R29.6 Repeated falls | CPT/HCPCS: 97110; 97162; 97530 ==

== ENCOUNTER 2019-12-24 06:00 | Outpatient (RCR) | payer OTHER, SELFPAY | END 2020-01-22 23:59 | disposition home or self-care (01) | LOC: WPT 06:00 | PROVIDERS: PCP Emergency Medicine Emergency Medical Services; Visit Provider Emergency Medicine Emergency Medical Services | DX: R26.89 Other abnormalities of gait and mobility (principal); Z72.3 Lack of physical exercise | CPT/HCPCS: 97110; 97530 ==

== ENCOUNTER 2021-03-16 10:32 | Emergency (ER) | payer OTHER, MEDICARE, SELFPAY ==
[2021-03-16 10:53] VITALS: BP 172/75; PULSE 64; RESP 14; TEMP 37.4; O2SAT 97; BMI 42.8
--- NOTE | 2021-03-16 10:59 | ECG_ITS ---
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 Measurements Intervals Cunningham Rate: 57 P: 49 RI: 157 QRS: -40 QRSD: 117 T: 31 QT: 424 QTc: 414 Interpretive Statements SINUS BRADYCARDIA WITH OCCASIONAL VENTRICULAR PREMATURE COMPLEXES LEFT AXIS DEVIATION [QRS AXIS < -30] MODERATE INTRAVENTRICULAR CONDUCTION DELAY [110+ ms QRS DURATION] Compared to ECG 06/25/2019 10:43:44 Ventricular premature complex(es) now present Sinus rhythm no longer present Prolonged QT interval no longer present Electronically Signed On 03-16-2021 20:09:37 CDT by Iman Larios M.D. [id number] f
--- NOTE | 2021-03-16 10:59 | XR_ITS ---
WS: [id number] Exam: XR chest 1V portable [id number] Date/Time of Exam: 03/16/2021 11:03 AM Reason For Exam: evaluate for edema Comparison 10/13/2019. The lungs are clear and fully expanded. Normal cardiomediastinal structures and regional bony element s. Several calcified granulomas in both lungs. XR/XR chest 1V portable [id number] IMPRESSION: 1. No acute cardiopulmonary finding.
--- NOTE | 2021-03-16 14:12 | ED_ITS ---
HPI - SOB/Dyspnea General: Chief Complaint: Shortness of Breath/Dyspnea Stated Complaint: SOB, CONGESTED Time Seen by Provider: 03/16/21 14:06 History of Present Illness: HPI Narrative: 75-year-old male presents emergency room with complaints of shortness of breath and cough. He has a history of myasthenia gravis and has had multiple episodes of pneumonia in the past. He has had myalgias headaches and low-grade fever at home as well he denies any diarrhea no anosmia. MD elicited complaint: shortness of breath and cough Pertinent past history: COPD Onset (ago): minute(s) Timing: constant Severity: mild Exacerbating factors: nothing Relieving factors: nothing Known history of: COPD and other (Myasthenia gravis) Associated symptoms: Reports chest congestion, cough, fever(s), myalgias and nausea; Deny abdominal pain, chest pain, diaphoresis, dizziness, extremity pain, hemoptysis, lightheadedness, orthopnea, palpitations, paresthesias, polydipsia, polyuria, rash, sense of impending doom, syncope or vomiting Treatment prior to arrival: none Review of Systems Const: Reports: fever(s); Denies: diaphoresis ENMT: Denies: throat pain, ear or mastoid pain, nasal discharge or nasal congestion Card: Denies: chest pain, palpitations, lightheadedness, syncope or orthopnea Resp: Reports: chest congestion; Denies: hemoptysis GI: Reports: nausea; Denies: abdominal pain or vomiting : Denies: flank pain, dysuria, urinary frequency or urinary urgency Musc: Denies: extremity pain Skin/Breast: Denies: rash or pruritus Neuro: Denies: dizziness Endo: Denies: polyuria or polydipsia PFS ED PFSH: Medical History CAD (coronary artery disease) -has hx of CAD, continue statin, ASA Chronic back pain -per med list, is on chronic oxycodone COPD (chronic obstructive pulmonary disease) -acute COPD exacerbation related to bilateral pneumonitis as noted above; acute exacerbation resolved -off steroids, Duonebs PRN GERD (gastroesophageal reflux disease) HTN (hypertension) -currently normotensive, borderline low BP in ED, received 500 mL bolus, gave additional 500 mL bolus -continue to monitor vital signs -d/c IVF as has good oral intake; encourage oral hydration Hyperlipidemia -continue statin Morbid obesity -BMI-41 kg/m2 Myasthenia gravis (~2009) PATIENT STATES HE HAS A DR AT [facility] THAT HE SEES, STATES THAT THE ONLY SYMPTOM HE HAS IS PARALYSIS OF VOCAL CORDS Social History Smoking and tobacco status: former smoker Quit status (tobacco): has quit using tobacco Year quit tobacco: 1982 Lives independently: Yes Physical Exam Const: COMMON NORMALS: no acute distress GENERAL APPEARANCE: cooperative and comfortable ORIENTATION/CONSCIOUSNESS: Yes awake, Yes oriented to person, Yes oriented to place and Yes oriented to time Neck/C-Spine: COMMON NORMALS: no JVD Lymph: LYMPHATIC: no lymphadenopathy noted and no lymphedema noted Resp: COMMON NORMALS: normal respiratory effort, No retractions, No use of accessory muscles and clear to auscultation bilaterally AUSCULTATION: clear to auscultation bilaterally Cardio: COMMON NORMALS: no JVD, regular rate, regular rhythm and No murmurs present (Cardio) RATE: regular rate RHYTHM: regular rhythm GI: COMMON NORMALS: Soft to palpation and No hepatosplenomegaly present AUSCULTATION: Yes normoactive bowel sounds PALPATION: Yes Soft to palpation, No Tenderness to palpation present (GI), No Guarding due to palpation present (GI) and Yes No hepatosplenomegaly present Extremity: COMMON NORMALS: normal to inspection, capillary refill normal, no clubbing, cyanosis or edema, no calf tenderness and no pedal edema Neuro: SENSORIUM/ORIENTATION: Yes oriented to person, Yes oriented to place and Yes oriented to time Skin: COMMON NORMALS: no rashes or lesions noted GENERAL SKIN EXAM: no rashes or lesions noted Course Vital Signs: Vital signs: Vital Signs Temperature 99.4 F 03/16/21 10:53 Pulse Rate 76 03/16/21 16:07 Respiratory Rate 26 H 03/16/21 16:07 Blood Pressure 163/103 03/16/21 16:07 Pulse Oximetry 94 03/16/21 16:07 MDM - SOB/Dyspnea MDM Narrative: Medical decision making narrative: Patient positive for COVID- 19 chest x-ray is normal oxygen sats are good. Discharge patient home will make arrangements for him to receive monoclonal antibody infusions in the morning. Lab Data: Labs: Lab Results 03/16/21 03/16/21 03/16/21 Range/Units 14:53 14:53 14:53 WBC 7.4 (4.0-10.0) 10^3/ uL RBC 5.08 (4.1-5.3) 10^6/u L Hgb 14.6 (11.7-16.6) g/dL Hct 45.0 (42.0-52.0) % MCV 88.6 (80-94) fl MCH 28.7 (28.0-34.0) pg MCHC 32.4 (30.0-36.0) g/dL RDW 13.3 (12.1-15.1) % Plt Count 150 (130-400) 10^3/c mm MPV 10.6 H (7.4-10.4) fL Neut % (Auto) 59.9 % Lymph % (Auto) 22.1 % [place] % (Auto) 13.4 % Eos % (Auto) 3.8 % Baso % (Auto) 0.4 % Neut # (Auto) 4.43 (1.8-7.7) 10^3/u L Lymph # (Auto) 1.6 (0.8-4.8) 10^3/u L [place] # (Auto) 1.0 H (0.2-0.9) 10^3/u L Eos # (Auto) 0.3 (0.0-0.8) 10^3/u L Baso # (Auto) 0.0 (0.0-0.1) 10^3/u L Nucleated RBC % (a uto) 0 % Nucleated RBCs # 0.0 /100WBC Sodium 137 (136-145) mmol/L Potassium 3.6 (3.5-5.1) mmol/L Chloride 95 L (98-107) mmol/L Carbon Dioxide 31 H (22-29) mmol/L Anion Gap 14.6 (5-19) BUN 10 (8-23) mg/dL Creatinine 1.0 (0.7-1.2) mg/dL GFR Calculation Not Reportable Glucose 83 (65-115) mg/dL Calculated Osmolal ity 282 L (285-295) mOsm/k g Calcium 8.6 (8.5-10.5) mg/dL Troponin T Baselin e 22 H (0-15) ng/L NT-Pro-B Natriuret Pep 402 H (0-125) pg/mL SARS-CoV-2 Ag (Rap id) (Negative) 03/16/21 Range/Units 14:53 WBC (4.0-10.0) 10^3/ uL RBC (4.1-5.3) 10^6/u L Hgb (11.7-16.6) g/dL Hct (42.0-52.0) % MCV (80-94) fl MCH (28.0-34.0) pg MCHC (30.0-36.0) g/dL RDW (12.1-15.1) % Plt Count (130-400) 10^3/c mm MPV (7.4-10.4) fL Neut % (Auto) % Lymph % (Auto) % [place] % (Auto) % Eos % (Auto) % Baso % (Auto) % Neut # (Auto) (1.8-7.7) 10^3/u L Lymph # (Auto) (0.8-4.8) 10^3/u L [place] # (Auto) (0.2-0.9) 10^3/u L Eos # (Auto) (0.0-0.8) 10^3/u L Baso # (Auto) (0.0-0.1) 10^3/u L Nucleated RBC % (a uto) % Nucleated RBCs # /100WBC Sodium (136-145) mmol/L Potassium (3.5-5.1) mmol/L Chloride (98-107) mmol/L Carbon Dioxide (22-29) mmol/L Anion Gap (5-19) BUN (8-23) mg/dL Creatinine (0.7-1.2) mg/dL GFR Calculation Glucose (65-115) mg/dL Calculated Osmolal ity (285-295) mOsm/k g Calcium (8.5-10.5) mg/dL Troponin T Baselin e (0-15) ng/L NT-Pro-B Natriuret Pep (0-125) pg/mL SARS-CoV-2 Ag (Rap id) Positive H (Negative) Discharge Plan Discharge Patient Disposition: Home Clinical Impression: COVID-19 Condition: Stable Prescriptions: No Action multivitamin [Multiple Vitamins] Tablet 1 tab PO DAILY RF: 0 pravastatin 40 mg Tablet 40 mg PO DAILY RF: 0 sildenafil 100 mg Tablet See Rx Instructions .ROUTE .COMPLEX RF: 0 clonidine HCl 0.2 mg Tablet 0.2 mg PO BEDTIME RF: 0 amlodipine [Norvasc] 10 mg Tablet 10 mg PO DAILY RF: 0 gabapentin 300 mg Capsule 600 mg PO BEDTIME RF: 0 omeprazole 20 mg Capsule,Delayed Release(Dr/Ec) 20 mg PO DAILY RF: 0 aspirin 81 mg Tablet,Chewable 81 mg PO DAILY RF: 0 hydrochlorothiazide 25 mg Tablet 50 mg PO DAILY RF: 0 albuterol sulfate 90 mcg/actuation Hfa Aerosol Inhaler 2 puff INHALATION QID PRN (Reason: Shortness Of Breath) RF: 0 losartan 100 mg Tablet 100 mg PO DAILY RF: 0 oxycodone 5 mg Tablet 5 mg PO Q6H PRN (Reason: Pain) RF: 0 potassium chloride 20 mEq Tablet Extended Release 30 meq PO DAILY RF: 0 benzonatate 100 mg Capsule 100 mg PO TID PRN (Reason: Cough) Qty: 30 RF: 0 albuterol sulfate 2.5 mg /3 mL (0.083 %) Solution For Nebulization 2.5 mg INHALATION Q6H PRN (Reason: Shortness Of Breath) Qty: 30 RF: 0 Discharge Orders: Discharge ED (Routine); Ordered 03/16/21 Ordered By: Alan Tellez Referrals: Brandon Rousseau DO [Primary Care Provider] - Patient Instructions: Opioid Safety Activity Restrictions/Additional Instructions: Manage will make arrangements for you to receive monoclonal antibody infusion tomorrow. 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 [facility] Fwd Exam Comprehensive Monoclonal Antibody - Acute Inclusion/Exclusion Criteria [facility] COVID test results: SARS-CoV-2 Antigen (Rapid) Positive (Negative) H 03/16/21 14:53 03/16/21 weight >/= 40 kg and + direct Sars-Cov-2 test less than 7-10 days ago age >/= 65 and age >/= 55 and has COPD/lung diease not requiring hospitalization, not requiring oxygen (if not chronically on oxygen) and no increase oxygen requirement (if chronically on oxygen) Patient education patient/family/caregiver received/reviewed fact sheet, Emergency Use Authorization/unapproved drug status discussed with patient/family/caregiver, alternatives to this treatment discussed with patient/family/caregiver, risks and benefits of medication reviewed with patient/family/caregiver, patient/family/caregiver given opportunity for questions, which were answered and patient consents to receiving Monoclonal Antibody Treatment Plan for treatment Meets criteria for Monoclonal Antibody infusion Ordering Monoclonal Antibody infusion for another day
[2021-03-16 15:05] LABS: Basophils % 0.4 %; Eosinophils # 0.3 10^3/uL (0.0-0.8); Eosinophils % 3.8 %; Hemoglobin 14.6 g/dL (11.7-16.6); Lymphocytes # 1.6 10^3/uL (0.8-4.8); Lymphocytes % 22.1 %; Mean Corpuscular HGB Conc 32.4 g/dL (30.0-36.0); Mean Corpuscular Hemoglobin 28.7 pg (28.0-34.0); Mean Corpuscular Volume 88.6 fl (80-94); Mean Platelet Volume 10.6 fL (7.4-10.4); Monocytes % 13.4 %; Neutrophils # 4.43 10^3/uL (1.8-7.7); Neutrophils % 59.9 %; Nucleated Red Blood Cells % 0 %; Platelet Count 150 10^3/cmm (130-400); Red Blood Count 5.08 10^6/uL (4.1-5.3); Red Cell Distribution Width 13.3 % (12.1-15.1); White Blood Count 7.4 10^3/uL (4.0-10.0)
[2021-03-16 15:06] VITALS: BP 171/82; PULSE 61; RESP 19; O2SAT 99
--- NOTE | 2021-03-16 15:11 | PC.PHAR ---
PT CONFIRMED MED LIST WITH ME. HE STATES HE STILL TAKES LOSARTAN, BUT [facility]. [facility]. I ALSO CALLED THE OTHER PHARMACY HE USED, [facility], AND THEY DID NOT FILL IT FOR HIM.
[2021-03-16 15:28] LABS: Troponin(5th) Baseline 22 ng/L (0-15)
[2021-03-16 15:34] LABS: SARS Covid-2 Antigen Positive (Negative)
[2021-03-16 15:36] LABS: Anion Gap 14.6 (5-19); Blood Urea Nitrogen 10 mg/dL (8-23); Calcium 8.6 mg/dL (8.5-10.5); Carbon Dioxide 31 mmol/L (22-29); Chloride 95 mmol/L (98-107); Glucose 83 mg/dL (65-115); NT Pro B Type Natriuretic Pept 402 pg/mL (0-125); Osmolality Calculated 282 mOsm/kg (285-295); Potassium 3.6 mmol/L (3.5-5.1); Sodium 137 mmol/L (136-145)
[2021-03-16 16:07] VITALS: BP 163/103; PULSE 76; RESP 26; O2SAT 94
== END 2021-03-16 16:07 | disposition home or self-care (01) ==
PROVIDERS: Emergency Medicine; Emergency Provider Family Medicine; PCP Emergency Medicine Emergency Medical Services
DX: U07.1 COVID-19 (principal); I25.10 Atherosclerotic heart disease of native coronary artery without angina pectoris; J44.9 Chronic obstructive pulmonary disease, unspecified; I10 Essential (primary) hypertension; E78.5 Hyperlipidemia, unspecified; G70.00 Myasthenia gravis without (acute) exacerbation; E66.01 Morbid (severe) obesity due to excess calories; Z68.41 Body mass index [BMI] 40.0-44.9, adult
CPT/HCPCS: 71045; 80048; 83880; 84484; 85025; 87426; 93005; 99283

== ENCOUNTER → 2022-05-14 09:25 | Outpatient (BNVA) | payer OTHER, SELFPAY | PROVIDERS: PCP Emergency Medicine Emergency Medical Services; Visit Provider Internal Medicine Cardiovascular Disease | DX: R06.02 Shortness of breath (principal); I25.10 Atherosclerotic heart disease of native coronary artery without angina pectoris; E78.5 Hyperlipidemia, unspecified; I10 Essential (primary) hypertension; E66.01 Morbid (severe) obesity due to excess calories; Z68.39 Body mass index [BMI] 39.0-39.9, adult; Z87.891 Personal history of nicotine dependence | CPT/HCPCS: 99213; 99214 ==

== ENCOUNTER → 2023-08-09 13:03 | Outpatient (BNVA) | payer OTHER, SELFPAY | PROVIDERS: PCP Emergency Medicine Emergency Medical Services; Referring Provider Emergency Medicine Emergency Medical Services; Visit Provider Internal Medicine Cardiovascular Disease | DX: I10 Essential (primary) hypertension (principal); E78.5 Hyperlipidemia, unspecified; R00.2 Palpitations; I25.10 Atherosclerotic heart disease of native coronary artery without angina pectoris; E66.01 Morbid (severe) obesity due to excess calories; Z68.41 Body mass index [BMI] 40.0-44.9, adult; K21.9 Gastro-esophageal reflux disease without esophagitis; J44.1 Chronic obstructive pulmonary disease with (acute) exacerbation; E11.9 Type 2 diabetes mellitus without complications; Z79.84 Long term (current) use of oral hypoglycemic drugs | CPT/HCPCS: 99214 ==

== ENCOUNTER 2024-01-19 13:39 | Emergency (ER) | payer OTHER, MEDICARE, SELFPAY ==
[2024-01-19] VITALS (10 sets, daily range): BP systolic 111–185; BP diastolic 72–98; PULSE 57–70; RESP 15–20; TEMP 37; O2SAT 96–99; BMI 40.6
--- NOTE | 2024-01-19 13:42 | ECG_ITS ---
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 Measurements Intervals [place] Rate: 67 P: 0 OR: 0 QRS: -39 QRSD: 122 T: 50 QT: 376 QTc: 399 Interpretive Statements Normal sinus rhythm with a supraventricular ectopics LEFT AXIS DEVIATION [QRS AXIS < -30] MODERATE INTRAVENTRICULAR CONDUCTION DELAY [110+ ms QRS DURATION] NONSPECIFIC T-WAVE ABNORMALITY INTERPRETATION BASED ON A DEFAULT AGE OF 40 YEARS Compared to ECG 03/16/2021 14:24:32 T-wave abnormality now present Sinus bradycardia no longer present Ventricular premature complex(es) no longer present Electronically Signed On 01-20-2024 20:36:22 CDT by Wellington Rene M.D. [email or web address] interactive [email or web address] [facility].[email or web address]/store/NU/[id number] f
--- NOTE | 2024-01-19 14:02 | XR_ITS ---
WS: [id number] Exam: XR chest 1V portable [id number] Date/Time of Exam: 01/19/2024 2:09 PM Reason For Exam: palpitations Comparison 03/16/2021. The lungs are fully expanded and clear. Normal cardiomediastinal silhouette. Eventration of the diaph ragms. Scattered calcified granulomas. Bony structures are intact. XR/XR chest 1V portable [id number] IMPRESSION: 1. No acute cardiopulmonary finding.
--- NOTE | 2024-01-19 14:11 | PC.PHAR ---
PT IS [facility] 01/19/24 2:09PM
--- NOTE | 2024-01-19 14:15 | W.ED.ARRPALP ---
HPI - Arrhythmia/Palpitations General: Chief Complaint: Arrhythmia/Palpitations Stated Complaint: SOB, wheezing, chest pain, [facility] referral Time Seen by Provider: 01/19/24 13:56 History of Present Illness: 78-year-old man with a history of atrial fibrillation on Eliquis, hypertension, obesity, COPD and coronary artery disease that presents to the emergency room with weakness and palpitations. He says he was out doing something with his truck, semiexertional, and he began to feel suddenly extremely weak. Generalized. Says he went to lay down and that he started feeling palpitations in his chest like his heart was racing. He says he feels somewhat better now. He had some feelings of palpitations in his chest but no real pain. No lower extremity swelling. No abdominal pain. No diaphoresis. No nausea or vomiting. Review of Systems Narrative: Constitutional symptoms: Negative except as documented in HPI. Skin symptoms: Negative except as documented in HPI. Eye symptoms: Negative except as documented in HPI. ENMT symptoms: Negative except as documented in HPI. Respiratory symptoms: Negative except as documented in HPI. Cardiovascular symptoms: Negative except as documented in HPI. Gastrointestinal symptoms: Negative except as documented in HPI. Genitourinary symptoms: Negative except as documented in HPI. Musculoskeletal symptoms: Negative except as documented in HPI. Neurologic symptoms: Negative except as documented in HPI. Psychiatric symptoms: Negative except as documented in HPI. Endocrine symptoms: Negative except as documented in HPI. [facility] ED PFSH: Medical History (Updated 01/19/24 @ 16:37 by Sydney Contreras MD) Diabetes Intermittent palpitations Myasthenia gravis (~2009) PATIENT STATES HE HAS A DR AT [facility] THAT HE SEES, STATES THAT THE ONLY SYMPTOM HE HAS IS PARALYSIS OF VOCAL CORDS Morbid obesity -BMI-41 kg/m2 GERD (gastroesophageal reflux disease) Chronic back pain -per med list, is on chronic oxycodone CAD (coronary artery disease) -has hx of CAD, continue statin, ASA Hyperlipidemia -continue statin HTN (hypertension) -currently normotensive, borderline low BP in ED, received 500 mL bolus, gave additional 500 mL bolus -continue to monitor vital signs -d/c IVF as has good oral intake; encourage oral hydration COPD (chronic obstructive pulmonary disease) -acute COPD exacerbation related to bilateral pneumonitis as noted above; acute exacerbation resolved -off steroids, Duonebs PRN Social History Smoking and tobacco/nicotine status: former use of tobacco/nicotine Quit status (tobacco/nicotine): has quit using Year quit tobacco: 1983 Lives independently: Yes Physical Exam Narrative: EXAM NARRATIVE: General: Alert, no acute distress. Skin: Warm, dry. Head: Normocephalic, atraumatic. Neck: Supple, trachea midline. Eye: Extraocular movements are intact. Ears, nose, mouth and throat: mucosa moist. Cardiovascular: Irregular, Normal peripheral perfusion. Respiratory: Lungs are clear to auscultation, respirations are non-labored, breath sounds are equal, Symmetrical chest wall expansion. Gastrointestinal: Soft, Nontender, Non distended Musculoskeletal: Normal ROM, no deformity. Neurological: Alert and oriented, No focal neurological deficit observed. Psychiatric: Cooperative, appropriate mood & affect. Course Vital Signs: Vital signs: Vital Signs Temperature 98.6 F 01/19/24 13:44 Pulse Rate 63 01/19/24 16:30 Respiratory Rate 20 H 01/19/24 16:30 Blood Pressure 142/85 01/19/24 15:30 Pulse Oximetry 99 01/19/24 16:30 Oxygen Delivery Me thod Room Air 01/19/24 16:30 MDM - Arrhythmia/Palpitations Medical Decision Making Medical decision making: Differential diagnosis including but not limited to and based on the above HPI, review of systems and physical exam: for patient with palpitations: atrial fibrillation with rapid ventricular response. ventricular tachycardia. sinus tachycardia. PVCs. also concern for underlying issues causing tachycardia. Infection, electrolyte abnormalities and thyroid issues Orders placed to evaluate differential diagnosis based on the above differential, HPI and physical exam EKG: Time 1342. Rate 67. Atrial fibrillation with controlled rate, No ST-T changes, no ectopy, This was reviewed and interpreted by myself the ER physician at 1345 Chest x-ray: No acute process. No infiltrate. No pneumothorax. This was reviewed and interpreted by myself the ER physician. Lab Review: Laboratory results were reviewed and interpreted by myself the emergency room physician. Patient has a low potassium at 2.3. Otherwise his lab work is unremarkable. No leukocytosis. No anemia. No renal failure. Serial troponins are negative. Urinalysis is normal. I reviewed the patient's medical record. Reexamination: Patient remained stable. He has had no dysrhythmias here. No tachycardia. No altered mental status. No increased work of breathing. We discussed discharge and he will follow with his primary to discuss his hydrochlorothiazide. Assessment and plan: Hypokalemia Palpitations ?40 mill equivalents p.o. and 40 mill equivalents IV potassium chloride - Discharged home - Discussed findings and plan with patient. Answered any questions. - All laboratory values were reviewed and interpreted personally by myself, the ER physician - All imaging was reviewed and interpreted personally by myself, the ER physician. - Evaluation and treatment of this problem were appropriate in the emergency setting Lab Data 01/19/24 14:08 01/19/24 14:08 Radiology Impressions Chest X-Ray 01/19/24 14:02 IMPRESSION: 1. No acute cardiopulmonary finding. Laboratory Results WBC 10.31 10^3/uL (3.29-11.43) 01/19/24 14:08 RBC 4.91 10^6/uL (3.85-5.65) 01/19/24 14:08 Hgb 14.20 g/dL (11.27-16.99) 01/19/24 14:08 Hct 40.7 % (37-53) 01/19/24 14:08 MCV 82.9 fl (82-101) 01/19/24 14:08 MCH 28.9 pg (27-33) 01/19/24 14:08 MCHC 34.9 g/dL (30-55) 01/19/24 14:08 RDW 13.2 % (12.1-15.1) 01/19/24 14:08 Plt Count 202 10^3/cmm (157-399) 01/19/24 14:08 MPV 10.4 fL (7.4-10.4) 01/19/24 14:08 Neut % (Auto) 55.5 % 01/19/24 14:08 Lymph % (Auto) 30.1 % 01/19/24 14:08 [place] % (Auto) 8.5 % 01/19/24 14:08 Eos % (Auto) 5.1 % 01/19/24 14:08 Baso % (Auto) 0.6 % 01/19/24 14:08 Neut # (Auto) 5.72 10^3/uL (1.8-7.7) 01/19/24 14:08 Lymph # (Auto) 3.1 10^3/uL (0.8-4.8) 01/19/24 14:08 [place] # (Auto) 0.9 10^3/uL (0.2-0.9) 01/19/24 14:08 Eos # (Auto) 0.5 10^3/uL (0.0-0.8) 01/19/24 14:08 Baso # (Auto) 0.1 10^3/uL (0.0-0.1) 01/19/24 14:08 Nucleated RBC % (auto) 0 % 01/19/24 14:08 Nucleated RBCs # 0.0 /100WBC 01/19/24 14:08 Sodium 137 mmol/L (136-145) 01/19/24 14:08 Potassium 2.3 mmol/L (3.5-5.1) L* 01/19/24 14:08 Chloride 95 mmol/L (98-107) L 01/19/24 14:08 Carbon Dioxide 29 mmol/L (22-29) 01/19/24 14:08 Anion Gap 15.3 (5-19) 01/19/24 14:08 BUN 11 mg/dL (8-23) 01/19/24 14:08 Creatinine 1.2 mg/dL (0.7-1.2) 01/19/24 14:08 GFR Calculation Not Reportable 01/19/24 14:08 Glucose 99 mg/dL (65-115) 01/19/24 14:08 Calculated Osmolality 283 mOsm/kg (285-295) L 01/19/24 14:08 Lactic Acid 2.1 mmol/L (0.5-2.2) 01/19/24 14:08 Calcium 8.1 mg/dL (8.5-10.5) L 01/19/24 14:08 Magnesium 1.8 mg/dL (1.7-2.3) 01/19/24 14:08 Total Bilirubin 0.5 mg/dL (0.15-1.2) 01/19/24 14:08 AST 22 U/L (0-40) 01/19/24 14:08 ALT 22 U/L (0-41) 01/19/24 14:08 Alkaline Phosphatase 88 U/L (40-130) 01/19/24 14:08 Troponin T Baseline 28 ng/L (0-15) H 01/19/24 14:08 Troponin T 120 Minute 25.68 ng/L (0-15) H 01/19/24 15:51 Delta Troponin T -2.32 ABS# (0-10) L 01/19/24 15:51 NT-Pro-B Natriuret Pep 168 pg/mL (0-450) 01/19/24 14:08 Total Protein 6.7 g/dL (6.6-8.7) 01/19/24 14:08 Albumin 4.0 g/dL (3.5-5.2) 01/19/24 14:08 Globulin 2.7 g/dL (1.3-4.6) 01/19/24 14:08 TSH 1.57 uIU/mL (0.27-4.20) 01/19/24 14:08 Urine Color Yellow (Yellow) 01/19/24 15:44 Urine Appearance Clear (CLEAR) 01/19/24 15:44 Urine pH 6.5 (5-7) 01/19/24 15:44 Ur Specific [place] 1.010 (1.005-1.030) 01/19/24 15:44 Urine Protein Trace (Negative) 01/19/24 15:44 Urine Glucose (UA) Norm (Normal) 01/19/24 15:44 Urine Ketones Negative (Negative) 01/19/24 15:44 Urine Blood Neg (Negative) 01/19/24 15:44 Urine Nitrate Negative 01/19/24 15:44 Urine Bilirubin Neg (Negative) 01/19/24 15:44 Urine Urobilinogen 1 mg/dL (Negative) H 01/19/24 15:44 Ur Leukocyte Esterase Negative (Negative) 01/19/24 15:44 Urine RBC None /hpf (0-2) 01/19/24 15:44 Urine WBC None /hpf (0-5) 01/19/24 15:44 Ur Squamous Epith Cells None /hpf (0-5) 01/19/24 15:44 Amorphous Sediment Not Reportable 01/19/24 15:44 Urine Bacteria None /hpf (NONE) 01/19/24 15:44 All radiology interpretation(s) finalized by discharge Discharge Plan Discharge Patient Disposition: Home Clinical Impression: Hypokalemia, Palpitations, Atrial fibrillation Condition: Stable Prescriptions: New potassium chloride 20 mEq tablet,ER particles/crystals 40 meq PO DAILY 7 Days Qty: 7 0RF No Action acetaminophen [Tylenol] 325 mg tablet 325 mg PO QID PRN (Reason: Pain) ibuprofen [Advil] 200 mg tablet 200 mg PO Q6H PRN (Reason: Pain) Eliquis 5 mg tablet 5 mg PO BID multivitamin [Multiple Vitamins] Tablet 1 tab PO DAILY pravastatin 40 mg Tablet 40 mg PO QPM sildenafil 100 mg Tablet See Rx Instructions .ROUTE .COMPLEX Rx Instructions: TAKE 1 TABLET BY MOUTH DAILY NEEDED FOR ED. Take 60 minutes prior to sexual activity*limit 6 doses per 30 days amlodipine [Norvasc] 10 mg Tablet 10 mg PO DAILY gabapentin 300 mg Capsule 600 mg PO BEDTIME omeprazole 20 mg Capsule,Delayed Release(Dr/Ec) 20 mg PO QAM aspirin 81 mg Tablet,Chewable 81 mg PO DAILY hydrochlorothiazide 25 mg Tablet 50 mg PO DAILY albuterol sulfate 90 mcg/actuation Hfa Aerosol Inhaler 2 puff INHALATION QID PRN (Reason: Shortness Of Breath) oxycodone 5 mg Tablet 5 mg PO Q6H PRN (Reason: Pain) potassium chloride 20 mEq Tablet Extended Release 30 meq PO DAILY clonidine HCl 0.2 mg tablet 0.2 mg PO BID Narcan 4 mg/actuation [employer],Non-Aerosol 4 mg INTRANASAL Q3M PRN (Reason: OVERDOSE) Rx Instructions: spray 1 dose into ONE nostril; alternate nostrils w each dose until help arrives Discharge Orders: Discharge ED (Routine); Ordered 01/19/24 Ordered By: Sydney Contreras Referrals: Brandon Rousseau DO [Primary Care Provider] - 4-7 days Discharge Diet: Usual diet Discharge Activity: Increase activity as tolerated Patient Instructions: A-fib (Atrial Fibrillation) (ED), Hypokalemia (ED) Activity Restrictions/Additional Instructions: Please follow-up with your doctor in the next few days to discuss your hypokalemia and if possibly your diuretic is involved in this problem. Thank you for choosing [facility] for your healthcare needs today. Please realize this is an emergency room and that we are providing you with a medical screening exam and this may not be complete and all inclusive of all the testing and or work up that you may need to determine your ailment or severity of your illness. You have been screened and evaluated and felt safe for discharge. Health conditions do change or evolve sometimes and as such it is important that you follow up with your Primary Doctor to be re checked, 3-5 days is a general good time frame for follow up. 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
[2024-01-19 14:17] LABS: Basophils # 0.1 10^3/uL (0.0-0.1); Basophils % 0.6 %; Eosinophils # 0.5 10^3/uL (0.0-0.8); Eosinophils % 5.1 %; Hematocrit 40.7 % (37-53); Lymphocytes # 3.1 10^3/uL (0.8-4.8); Lymphocytes % 30.1 %; Mean Corpuscular HGB Conc 34.9 g/dL (30-55); Mean Corpuscular Hemoglobin 28.9 pg (27-33); Mean Corpuscular Volume 82.9 fl (82-101); Mean Platelet Volume 10.4 fL (7.4-10.4); Monocytes # 0.9 10^3/uL (0.2-0.9); Monocytes % 8.5 %; Neutrophils # 5.72 10^3/uL (1.8-7.7); Neutrophils % 55.5 %; Nucleated Red Blood Cells % 0 %; Platelet Count 202 10^3/cmm (157-399); Red Blood Count 4.91 10^6/uL (3.85-5.65); Red Cell Distribution Width 13.2 % (12.1-15.1); White Blood Count 10.31 10^3/uL (3.29-11.43)
[2024-01-19 14:37] LABS: Lactic Sepsis W/Reflex 2.1 mmol/L (0.5-2.2)
[2024-01-19 14:41] LABS: Troponin(5th) Baseline 28 ng/L (0-15)
[2024-01-19 14:51] LABS: Alanine Aminotransferase 22 U/L (0-41); Alkaline Phosphatase 88 U/L (40-130); Anion Gap 15.3 (5-19); Aspartate Amino Transferase 22 U/L (0-40); Blood Urea Nitrogen 11 mg/dL (8-23); Calcium 8.1 mg/dL (8.5-10.5); Carbon Dioxide 29 mmol/L (22-29); Chloride 95 mmol/L (98-107); Creatinine Clr Calc Pharmacy 68.3816; Globulin 2.7 g/dL (1.3-4.6); Glucose 99 mg/dL (65-115); Magnesium 1.8 mg/dL (1.7-2.3); NT Pro B Type Natriuretic Pept 168 pg/mL (0-450); Osmolality Calculated 283 mOsm/kg (285-295); Sodium 137 mmol/L (136-145); Thyroid Stimulating Hormone 1.57 uIU/mL (0.27-4.20); Total Bilirubin 0.5 mg/dL (0.15-1.2); Total Protein 6.7 g/dL (6.6-8.7)
[2024-01-19 14:54] LABS: Potassium 2.3 mmol/L (3.5-5.1)
[2024-01-19] MEDS: potassium chloride ER 20 mEq Tablet 40 MEQ PO (15:19)
[2024-01-19] MEDS: magnesium sulfate premix 2 GM/50 ML PIGGYBACK IV (15:53)
[2024-01-19 16:01] LABS: Reflex Lactate Order REFLEX LACTIC ORDERD
[2024-01-19 16:17] LABS: Bilirubin Urine Neg (Negative); Blood Urine Neg (Negative); Glucose Urine UA Norm (Normal); Ketones Urine Negative (Negative); Leukocyte Esterase Urine Negative (Negative); Nitrate Urine Negative; Protein Urine Trace (Negative); Urine Appearance Clear (CLEAR); Urine Color Yellow (Yellow); Urobilinogen Urine 1 mg/dL (Negative); pH Urine 6.5 (5-7)
[2024-01-19 16:27] LABS: Troponin 5 2HR 25.68 ng/L (0-15)
[2024-01-19 16:29] LABS: Troponin 5 2HR Delta -2.32 ABS# (0-10)
[2024-01-19] MEDS: potassium chloride premix 100 ML 25 MEQ IV (16:49)
--- NOTE | 2024-01-19 17:33 | ECG_ITS ---
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 Measurements Intervals [place] Rate: 68 P: 38 [place]: 171 QRS: -37 QRSD: 123 T: 40 QT: 477 QTc: 509 Interpretive Statements SINUS RHYTHM WITH OCCASIONAL SUPRAVENTRICULAR PREMATURE COMPLEXES LEFT AXIS DEVIATION [QRS AXIS < -30] POSSIBLE RIGHT VENTRICULAR CONDUCTION DELAY [RSR (QR) IN V1/V2] PROLONGED QT INTERVAL Compared to ECG 01/19/2024 13:42:44 Prolonged QT interval now present Atrial fibrillation no longer present Intraventricular conduction delay no longer present T-wave abnormality no longer present Electronically Signed On 01-20-2024 20:47:29 CDT by Wellington Rene M.D. [email or web address]/[id number]
[2024-01-19 17:40] LABS: Lactic Acid level (Lactate) 2.1 mmol/L (0.5-2.2)
== END 2024-01-19 20:18 | disposition home or self-care (01) ==
PROVIDERS: Emergency Provider Emergency Medicine; PCP Emergency Medicine Emergency Medical Services
DX: E87.6 Hypokalemia (principal); R00.2 Palpitations; I48.91 Unspecified atrial fibrillation; Z79.01 Long term (current) use of anticoagulants; Z79.82 Long term (current) use of aspirin; E11.9 Type 2 diabetes mellitus without complications; I25.10 Atherosclerotic heart disease of native coronary artery without angina pectoris; E78.5 Hyperlipidemia, unspecified; I10 Essential (primary) hypertension; J44.9 Chronic obstructive pulmonary disease, unspecified; Z87.891 Personal history of nicotine dependence
CPT/HCPCS: 36415; 71045; 80053; 81001; 83605; 83735; 83880; 84443; 84484; 85025; 93005; 96365; 96366; 96367; 99285; J3475; J3480

== ENCOUNTER 2024-01-29 13:12 | Emergency (ER) | payer OTHER, MEDICARE, SELFPAY ==
--- NOTE | 2024-01-29 13:13 | ECG_ITS ---
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 Measurements Intervals [place] Rate: 50 P: 2 WI: 151 QRS: -40 QRSD: 120 T: 44 QT: 499 QTc: 457 Interpretive Statements SINUS BRADYCARDIA WITH SINUS ARRHYTHMIA LEFT AXIS DEVIATION [QRS AXIS < -30] MODERATE INTRAVENTRICULAR CONDUCTION DELAY [110+ ms QRS DURATION] PROLONGED QT INTERVAL Compared to ECG 01/19/2024 17:33:16 Intraventricular conduction delay now present Sinus rhythm no longer present Electronically Signed On 01-29-2024 19:19:02 CDT by Shane Billings M.D. [id number]
[2024-01-29 13:26] VITALS: BP 153/74; PULSE 53; RESP 18; TEMP 36.3; O2SAT 95
[2024-01-29 13:44] LABS: Basophils % 0.5 %; Eosinophils # 0.6 10^3/uL (0.0-0.8); Eosinophils % 6.5 %; Hematocrit 38.3 % (37-53); Lymphocytes # 2.7 10^3/uL (0.8-4.8); Lymphocytes % 30.9 %; Mean Corpuscular HGB Conc 33.7 g/dL (30-55); Mean Corpuscular Hemoglobin 29.3 pg (27-33); Mean Corpuscular Volume 86.8 fl (82-101); Mean Platelet Volume 10.3 fL (7.4-10.4); Monocytes # 0.8 10^3/uL (0.2-0.9); Monocytes % 8.6 %; Neutrophils # 4.67 10^3/uL (1.8-7.7); Neutrophils % 53.2 %; Nucleated Red Blood Cells % 0 %; Platelet Count 201 10^3/cmm (157-399); Red Blood Count 4.41 10^6/uL (3.85-5.65); Red Cell Distribution Width 13.1 % (12.1-15.1); White Blood Count 8.77 10^3/uL (3.29-11.43)
[2024-01-29 14:02] LABS: INR 1.04 (0.8-1.2)
[2024-01-29 14:06] LABS: Troponin(5th) Baseline 26 ng/L (0-15)
[2024-01-29 14:16] LABS: Alanine Aminotransferase 13 U/L (0-41); Albumin Level 3.5 g/dL (3.5-5.2); Alkaline Phosphatase 81 U/L (40-130); Anion Gap 14.2 (5-19); Aspartate Amino Transferase 16 U/L (0-40); Blood Urea Nitrogen 10 mg/dL (8-23); Calcium 7.9 mg/dL (8.5-10.5); Carbon Dioxide 28 mmol/L (22-29); Chloride 97 mmol/L (98-107); Globulin 2.8 g/dL (1.3-4.6); Glucose 116 mg/dL (65-115); NT Pro B Type Natriuretic Pept 828 pg/mL (0-450); Osmolality Calculated 282 mOsm/kg (285-295); Potassium 3.2 mmol/L (3.5-5.1); Sodium 136 mmol/L (136-145); Total Bilirubin 0.4 mg/dL (0.15-1.2); Total Protein 6.3 g/dL (6.6-8.7)
--- NOTE | 2024-01-29 14:16 | USR_ITS ---
PROCEDURE INFORMATION: Exam: US Abdomen, Limited; Right Upper Quadrant Exam date and time: 01/29/2024 2:46 PM Age: 78 years old Clinical indication: Abdominal pain; Localized; Right upper quadrant (ruq); Additional info: Ruq pain TECHNIQUE: Imaging protocol: Real time ultrasound of the abdomen with image documentation. Limited exam focused on the right upper quadrant. COMPARISON: CT chest wo con [id number] 10/09/2019 6:15 PM FINDINGS: Liver: Mild hepatomegaly. Echogenic, consistent with fatty infiltration. 2 cm simple cyst. Gallbladder: Partially contracted. No gallstones. No convincing gallbladder wall thickening or pericholecystic fluid. Negative sonographic Marinelli's sign, as per the performing direct of real estate. Biliary ducts: No stones. No ductal dilatation. Pancreas: Unremarkable as visualized. Right kidney: No mass. No definite stones. No hydronephrosis. US/US gall bladder [id number] IMPRESSION: Mildly enlarged, fatty liver.
--- NOTE | 2024-01-29 14:18 | ED_ITS ---
HPI - Chest Pain 2 General: Chief Complaint: Chest Pain Stated Complaint: chest pain, short of breath Time Seen by Provider: 01/29/24 14:13 Source: patient Mode of arrival: ambulatory Limitations: no limitations History of Present Illness: 78-year-old male states that he has been having some right upper quadrant abdominal pain for the last week. He states that seems to radiate to his chest at times he had some mild dyspnea he denies any shortness of breath currently denies cough or fever. He states pain sharp in nature rates it a 6 out of 10 it is worse with palpation. Associated symptoms: Reports abdominal pain; Deny fever(s), nausea or vomiting Review of Systems 2 Const: Denies: fever(s), chills, body aches or change in appetite ENMT: Denies: throat pain or dental pain Card: Reports: chest pain Resp: Denies: non-productive cough GI: Reports: abdominal pain; Denies: nausea, vomiting or diarrhea Musc: Denies: neck pain or back pain Skin/Breast: Denies: rash Neuro: Denies: headache(s) PFSH ED 2 PFSH: Medical History Diabetes Intermittent palpitations Myasthenia gravis (~2009) PATIENT STATES HE HAS A DR AT [facility] THAT HE SEES, STATES THAT THE ONLY SYMPTOM HE HAS IS PARALYSIS OF VOCAL CORDS Morbid obesity -BMI-41 kg/m2 GERD (gastroesophageal reflux disease) Chronic back pain -per med list, is on chronic oxycodone CAD (coronary artery disease) -has hx of CAD, continue statin, ASA Hyperlipidemia -continue statin HTN (hypertension) -currently normotensive, borderline low BP in ED, received 500 mL bolus, gave additional 500 mL bolus -continue to monitor vital signs -d/c IVF as has good oral intake; encourage oral hydration COPD (chronic obstructive pulmonary disease) -acute COPD exacerbation related to bilateral pneumonitis as noted above; acute exacerbation resolved -off steroids, Duonebs PRN Social History Smoking and tobacco/nicotine status: former use of tobacco/nicotine Quit status (tobacco/nicotine): has quit using Year quit tobacco: 1982 Lives independently: Yes Physical Exam 2 Const: COMMON NORMALS: no acute distress, patient oriented x3 and healthy appearing HENMT: COMMON NORMALS: normocephalic and atraumatic HEAD & SCALP: n ormocephalic and atraumatic Neck/C-Spine: COMMON NORMALS: full ROM and supple Chest: COMMONS NORMALS: normal inspection of the chest Resp: COMMON NORMALS: normal respiratory effort, No retractions, No use of accessory muscles and clear to auscultation bilaterally AUSCULTATION: clear to auscultation bilaterally Cardio: COMMON NORMALS: regular rate, regular rhythm and No murmurs present (Cardio) RATE: regular rate RHYTHM: regular rhythm GI: COMMON NORMALS: Normal to inspection, nondistended, normoactive bowel sounds present, Soft to palpation and no masses PALPATION: Yes Soft to palpation and Yes Tenderness to palpation present (GI) Details: RUQ Extremity: COMMON NORMALS: normal to inspection and full ROM Neuro: COMMON NORMALS: patient oriented x3, moves all extremities and no focal motor deficits Psych: COMMON NORMALS: mental status grossly normal, Normal thought process present and cooperative THOUGHT PROCESS: Normal thought process present Skin: COMMON NORMALS: no rashes or lesions noted and no wounds GENERAL SKIN EXAM: no rashes or lesions noted Course 2 Vital Signs: Vital signs: Vital Signs Temperature 97.4 F L 01/29/24 13:26 Pulse Rate 53 L 01/29/24 13:26 Respiratory Rate 18 01/29/24 13:26 Blood Pressure 153/74 01/29/24 13:26 Pulse Oximetry 95 01/29/24 13:26 MDM - Chest Pain Medical Decision Making Patient presents here with right upper quadrant abdominal pain along with some chest pain patient is well-appearing here he feels much improved ultrasound of his gallbladder is negative his 2-hour troponin was negative D-dimer is negative so no signs of pulmonary embolism or acute coronary syndrome he is stable he is follow-up with his PCP he is return if worsening he understands agrees to plan. Medical Records I reviewed the patient's medical records. Lab Data I reviewed the patient's lab results. 01/29/24 13:39 01/29/24 13:39 Radiology Impressions Gallbladder Ultrasound 01/29/24 14:16 IMPRESSION: Mildly enlarged, fatty liver. Chest X-Ray 01/29/24 14:18 IMPRESSION: No acute radiographic findings. Laboratory Results WBC 8.77 10^3/uL (3.29-11.43) 01/29/24 13:39 RBC 4.41 10^6/uL (3.85-5.65) 01/29/24 13:39 Hgb 12.90 g/dL (11.27-16.99) 01/29/24 13:39 Hct 38.3 % (37-53) 01/29/24 13:39 MCV 86.8 fl (82-101) 01/29/24 13:39 MCH 29.3 pg (27-33) 01/29/24 13:39 MCHC 33.7 g/dL (30-55) 01/29/24 13:39 RDW 13.1 % (12.1-15.1) 01/29/24 13:39 Plt Count 201 10^3/cmm (157-399) 01/29/24 13:39 MPV 10.3 fL (7.4-10.4) 01/29/24 13:39 Neut % (Auto) 53.2 % 01/29/24 13:39 Lymph % (Auto) 30.9 % 01/29/24 13:39 Terry % (Auto) 8.6 % 01/29/24 13:39 Eos % (Auto) 6.5 % 01/29/24 13:39 Baso % (Auto) 0.5 % 01/29/24 13:39 Neut # (Auto) 4.67 10^3/uL (1.8-7.7) 01/29/24 13:39 Lymph # (Auto) 2.7 10^3/uL (0.8-4.8) 01/29/24 13:39 Terry # (Auto) 0.8 10^3/uL (0.2-0.9) 01/29/24 13:39 Eos # (Auto) 0.6 10^3/uL (0.0-0.8) 01/29/24 13:39 Baso # (Auto) 0.0 10^3/uL (0.0-0.1) 01/29/24 13:39 Nucleated RBC % (auto) 0 % 01/29/24 13:39 Nucleated RBCs # 0.0 /100WBC 01/29/24 13:39 PT 13.90 SECONDS (12.1-14.9) 01/29/24 13:39 INR 1.04 (0.8-1.2) 01/29/24 13:39 D-Dimer 0.53 ug/mLFEU (0-0.59) 01/29/24 13:39 Sodium 136 mmol/L (136-145) 01/29/24 13:39 Potassium 3.2 mmol/L (3.5-5.1) L 01/29/24 13:39 Chloride 97 mmol/L (98-107) L 01/29/24 13:39 Carbon Dioxide 28 mmol/L (22-29) 01/29/24 13:39 Anion Gap 14.2 (5-19) 01/29/24 13:39 BUN 10 mg/dL (8-23) 01/29/24 13:39 Creatinine 1.3 mg/dL (0.7-1.2) H 01/29/24 13:39 GFR Calculation Not Reportable 01/29/24 13:39 Glucose 116 mg/dL (65-115) H 01/29/24 13:39 Calculated Osmolality 282 mOsm/kg (285-295) L 01/29/24 13:39 Calcium 7.9 mg/dL (8.5-10.5) L 01/29/24 13:39 Total Bilirubin 0.4 mg/dL (0.15-1.2) 01/29/24 13:39 AST 16 U/L (0-40) 01/29/24 13:39 ALT 13 U/L (0-41) 01/29/24 13:39 Alkaline Phosphatase 81 U/L (40-130) 01/29/24 13:39 Troponin T Baseline 26 ng/L (0-15) H 01/29/24 13:39 Troponin T 120 Minute 25.30 ng/L (0-15) H 01/29/24 15:25 Delta Troponin T -0.70 ABS# (0-10) L 01/29/24 15:25 NT-Pro-B Natriuret Pep 828 pg/mL (0-450) H 01/29/24 13:39 Total Protein 6.3 g/dL (6.6-8.7) L 01/29/24 13:39 Albumin 3.5 g/dL (3.5-5.2) 01/29/24 13:39 Globulin 2.8 g/dL (1.3-4.6) 01/29/24 13:39 All radiology interpretation(s) finalized by discharge EKG Data EKG 1: I personally reviewed and interpreted this EKG as follows: EKG interpretation date: 01/29/24 EKG interpretation time: 13:13 Interpretation: sinus herson hr [address] or t wave abnormalities qrs 120 qtc 472 EKG 2: I personally reviewed and interpreted this EKG as follows: EKG interpretation date: 01/29/24 EKG interpretation time: 15:15 Interpretation: no st elevation qrs 124 qtc 478 Discharge Plan Discharge Patient Disposition: Home Clinical Impression: Chest pain, Abdominal pain Condition: Stable Prescriptions: No Action acetaminophen [Tylenol] 325 mg tablet 325 mg PO QID PRN (Reason: Pain) ibuprofen [Advil] 200 mg tablet 200 mg PO Q6H PRN (Reason: Pain) Eliquis 5 mg tablet 5 mg PO BID multivitamin [Multiple Vitamins] Tablet 1 tab PO DAILY pravastatin 40 mg Tablet 40 mg PO QPM sildenafil 100 mg Tablet See Rx Instructions .ROUTE .COMPLEX Rx Instructions: TAKE 1 TABLET BY MOUTH DAILY NEEDED FOR ED. Take 60 minutes prior to sexual activity*limit 6 doses per 30 days amlodipine [Norvasc] 10 mg Tablet 10 mg PO DAILY gabapentin 300 mg Capsule 600 mg PO BEDTIME omeprazole 20 mg Capsule,Delayed Release(Dr/Ec) 20 mg PO QAM aspirin 81 mg Tablet,Chewable 81 mg PO DAILY hydrochlorothiazide 25 mg Tablet 50 mg PO DAILY albuterol sulfate 90 mcg/actuation Hfa Aerosol Inhaler 2 puff INHALATION QID PRN (Reason: Shortness Of Breath) oxycodone 5 mg Tablet 5 mg PO Q6H PRN (Reason: Pain) potassium chloride 20 mEq Tablet Extended Release 30 meq PO DAILY clonidine HCl 0.2 mg tablet 0.2 mg PO BID Narcan 4 mg/actuation Rattan,Non-Aerosol 4 mg INTRANASAL Q3M PRN (Reason: OVERDOSE) Rx Instructions: spray 1 dose into ONE nostril; alternate nostrils w each dose until help arrives Discharge Orders: Discharge ED (Routine); Ordered 01/29/24 Ordered By: Renetta Galarza Referrals: Brandon Rousseau DO [Primary Care Provider] - 4-7 days Discharge Diet: Advance as tolerated Discharge Activity: Resume usual activity Patient Instructions: Chest Pain (ED), Abdominal Pain (ED) Coding Level of Care Code ED Reception Agent for Vitaliy Jane
--- NOTE | 2024-01-29 14:18 | XRR_ITS ---
PROCEDURE INFORMATION: Exam: XR Chest Exam date and time: 01/29/2024 3:06 PM Age: 78 years old Clinical indication: Chest pressure; Patient HX: C/O ruq abd / RT chest pain that started a week ago. States that he has been SOB. Reports the pain starting a week ago, is gone in the am but as soon as he does anything it comes back. HX HTN. PT seen in this er last week and given RX for k+. Denies palpitations today. Ekg done prior to triage. HX copd, HTN, afib, cad, on eliquis. ; Additional info: Cp TECHNIQUE: Imaging protocol: Radiologic exam of the chest. Views: 1 view. COMPARISON: CR XR chest 1V portable [id number] 01/19/2024 2:11 PM FINDINGS: Lungs: Streaky opacities at the lung bases, likely secondary to atelectasis and/or scarring. No consolidation. Pleural spaces: Unremarkable. No pleural effusion. No pneumothorax. Heart/Mediastinum: Unremarkable. No cardiomegaly. Diaphragm: Eventration of the diaphragm. Bones/joints: No acute osseous abnormality. Mild degenerative changes. XR/XR chest 1V portable [id number] IMPRESSION: No acute radiographic findings.
[2024-01-29 14:31] VITALS: BP 154/79; PULSE 46; RESP 17; O2SAT 97
[2024-01-29 14:33] LABS: Creatinine Clr Calc Pharmacy 63.1215
--- NOTE | 2024-01-29 15:17 | ECG_ITS ---
[facility] Test Date: 2024-01-29 Pat Name: Henri Yanes Department: Room: Gender: Male Activity Director: : 1945 Requested By: Renetta Galarza Order Number: [id number] Kamran MD: Shane Billings M.D. Measurements Intervals Dema Rate: 46 P: 0 CA: 0 QRS: -36 QRSD: 124 T: 56 QT: 520 QTc: 456 Interpretive Statements SINUS BRADYCARDIA LEFT AXIS DEVIATION [QRS AXIS < -30] MODERATE INTRAVENTRICULAR CONDUCTION DELAY [110+ ms QRS DURATION] MINIMAL ST DEPRESSION [0.025+ mV ST DEPRESSION] PROLONGED QT INTERVAL Compared to ECG 01/29/2024 13:13:51 ST (T wave) deviation now present Sinus bradycardia no longer present Sinus arrhythmia no longer present Electronically Signed On 01-29-2024 19:26:22 CDT by Shane Billings M.D. [id number]
[2024-01-29 15:56] LABS: D Dimer 0.53 ug/mLFEU (0-0.59)
[2024-01-29 16:00] VITALS: BP 146/72; PULSE 52; RESP 14; O2SAT 94
[2024-01-29 16:30] VITALS: BP 148/77; PULSE 56; RESP 18
[2024-01-29 17:11] VITALS: BP 146/64; PULSE 48; O2SAT 95
== END 2024-01-29 17:11 | disposition home or self-care (01) ==
PROVIDERS: Emergency Provider Emergency Medicine; PCP Emergency Medicine Emergency Medical Services
DX: R07.9 Chest pain, unspecified (principal); R10.11 Right upper quadrant pain; Z87.891 Personal history of nicotine dependence; E11.9 Type 2 diabetes mellitus without complications; I25.10 Atherosclerotic heart disease of native coronary artery without angina pectoris; E78.5 Hyperlipidemia, unspecified; I10 Essential (primary) hypertension; J44.9 Chronic obstructive pulmonary disease, unspecified; R00.1 Bradycardia, unspecified; Z79.01 Long term (current) use of anticoagulants; Z79.82 Long term (current) use of aspirin
CPT/HCPCS: 36415; 71045; 76705; 80053; 83880; 84484; 85025; 85378; 85610; 93005; 99285

== ENCOUNTER → 2024-04-02 13:00 | Outpatient (BNVA) | payer OTHER, SELFPAY | PROVIDERS: PCP Emergency Medicine Emergency Medical Services; Visit Provider Nurse Practitioner Family | DX: I10 Essential (primary) hypertension (principal); I25.10 Atherosclerotic heart disease of native coronary artery without angina pectoris; Z87.891 Personal history of nicotine dependence | CPT/HCPCS: 99214 ==

== ENCOUNTER → 2024-11-13 14:41 | Outpatient (BNVA) | payer OTHER, SELFPAY | PROVIDERS: PCP Emergency Medicine Emergency Medical Services; Visit Provider Internal Medicine Cardiovascular Disease | DX: R06.02 Shortness of breath (principal); I25.10 Atherosclerotic heart disease of native coronary artery without angina pectoris; E78.5 Hyperlipidemia, unspecified; I10 Essential (primary) hypertension; J44.1 Chronic obstructive pulmonary disease with (acute) exacerbation; E66.01 Morbid (severe) obesity due to excess calories; Z68.41 Body mass index [BMI] 40.0-44.9, adult; Z79.01 Long term (current) use of anticoagulants; Z79.82 Long term (current) use of aspirin; Z87.891 Personal history of nicotine dependence; Z98.61 Coronary angioplasty status; R07.9 Chest pain, unspecified; R06.09 Other forms of dyspnea | CPT/HCPCS: 93005; 99215 ==

== ENCOUNTER 2024-12-04 07:47 | Outpatient (CLI) | payer OTHER, SELFPAY ==
--- NOTE | 2024-12-04 | ECG_ITS ---
[facility] Test Date: 2024-12-04 Pat Name: Henri Yanes Department: Room: Gender: Male Load Builder: : 1945 Requested By: Wellington Rene Order Number: [id number] Kamran MD: RASHEL WOOD Interpretive Statements Lung unchanged pre/post procedure; Intraprocedure shortess of breath; Symptoms resoled by discharge NOTE: Please note that this is the electrocardiogram portion of the Lexiscan/Sestamibi stress test. The perfusion scan will be documented separately. DATA: Baseline heart rate was 45 beats per minute. Baseline blood pressure was 136/97 millimeters of mercury. Target heart rate was 143. Maximum heart rate achieved was 60. which was 41% of the predicted target heart rate. Maximum blood pressure was 136/97 millimeters of mercury. The reason for ending the test was completion of the protocol. The patient did not experience any symptoms. ELECTROCARDIOGRAM: BASELINE: Atrial fibrillation with slow ventricular response, normal axis. Otherwise, no ST-T changes suggestive of ischemia noted. No arrhythmia noted. EXERCISE: After Lexiscan injection, PVC noted, otherwise no ST-T changes suggestive of ischemic noted. No arrhythmia noted. CONCLUSION: Please note due to baseline abnormality of the EKG specificity and sensitivity of the EKG portion of LexiScan MIBI stress test will be low 1. EKG not suggestive of ischemia 2. Lexiscan injection unremarkable. 3. Perfusion scan will be documented separately. Electronically Signed On 12-25-2024 22:08:24 CDT by RASHEL WOOD [email or web address] [id number]
--- NOTE | 2024-12-04 07:52 | NMCV_ITS ---
NM juve perf SPECT r/s* [id number] Henri Yanes Age: 79 Gender: M : 1945 Exam Date: 12/04/2024 09:04 Ordering Phys: Wellington Rene MD ([email or web address]) Technologist: MARIZOL Farooq Exam Location: [facility] Indications: cp STRESS TEST Please see separate stress test report in [facility] for full findings IMAGE PROTOCOL Rest/Stress 1 Lexiscan Day Radiopharmaceutical Dose (mCi) Administration Site Administered by Rest: Tc-99m 10.8 IV Priya Parada CONSULTANT DIETITIAN Stress:Tc-99m 32.4 IV Priya Parada CONSULTANT DIETITIAN Rest: 04-Dec-2024 60 Discovery 630 Stress: 04-Dec-2024 30 Discovery 630 0.4mg Lexiscan.. Images obtained in supine and prone position. SPECT RESULTS Technical Quality: Good Raw Data Analysis: Normal Image Corrections: No attenuation or motion correction applied Summed Stress Score: 16 Summed Rest Score: 17 Summed Difference Score: 1 PERFUSION FINDINGS Moderate to large area of moderately decreased tracer uptake involving the mid and apical inferior, mid inferoseptal, and all the apical segments. Minimally decreased tracer uptake also was noted in the mid inferolateral and mid anteroseptal segments. A subtle area reversibility was noted in the apical anterior segment FUNCTIONAL RESULTS (calculated via Gated SPECT) Stress Image LV EF (%): 51 Stress EDV (mL):152 TID: 1.51 Stress ESV (mL):75 FUNCTIONAL FINDINGS: Segmental wall motion analysis revealed mild hypokinesia of the LV apex. Elevated transient ischemic dilatation ratio 1.51 IMPRESSIONS 1. Myocardial perfusion imaging revealing moderate to large area of persistent decreased tracer uptake involving the inferior, inferoseptal, inferolateral, anteroseptal and apical regions with a subtle area reversibility in the apical anterior region suggesting extensive myocardial scarring in the distribution of all the 3 coronary arteries with a subtle area of ischemia in the distal LAD distribution. Elevated transient ischemic dilatation may suggest endocardial ischemia 2. Normal LV ejection fraction of 51% 3. LV wall motion analysis revealing mild hypokinesia of the LV apex. 4. Mildly dilated LV cavity with an end-systolic volume of 75 mL Compared to the study from 05/10/2019, the ischemic area appears to be new Dr Wellington Rene MD [facility] (Electronically Signed) Final Date: 05 Dec 2024 22:36 S
[2024-12-04 07:53] VITALS: BMI 41.6
--- NOTE | 2024-12-04 08:00 | USCV_ITS ---
Henri Yanes Age: 79 Gender: M : 1945 Exam Date: 12/04/2024 08:21 Ordering Phys: Wellington Rene MD ([email or web address]) Technologist: GIOVANY [place] [facility] [place]: cp BP: 138 / 73 HR: 45 Rhythm: Sinus Technical Quality: Adequate MEASUREMENTS (Male / Female) Normal Values 2D ECHO LV Diastolic Diameter PLAX 6.5 cm 4.2 - 5.9 / 3.9 - 5.3 cm IVS Diastolic Thickness 1.3 cm 0.6 - 1.0 / 0.6 - 0.9 cm IVS Systolic Thickness 1.7 cm LVPW Diastolic Thickness 1.2 cm 0.6 - 1.0 / 0.6 - 0.9 cm LVPW Systolic Thickness 1.6 cm LVOT Diameter 2.0 cm LV Ejection Fraction 2D Teich 55.3 % LV Ejection Fraction MOD 4C 56.7 % LV Ejection Fraction MOD 2C 56.1 % LV Ejection Fraction 2C AL 53.8 % LA Diameter 4.3 cm RA Systolic Volume 4C AL 38.8 ml RA Systolic Volume 4C MOD 37.6 ml Aorta at Sinotubular Diameter 2.2 cm M-MODE LA Ao Ratio MM 1.5 AV Cusp Separation MM 1.6 cm DOPPLER AV Peak Velocity 147.0 cm/s LVOT Peak Velocity 105.0 cm/s AV Area Cont Eq vti 2.4 cm squared AV Area Cont Eq pk 2.3 cm squared MV Peak Velocity 134.0 cm/s MV Area PHT 5.1 cm squared Mitral E to A Ratio 0.9 TR Peak Velocity 129.0 cm/s TR Peak Gradient 6.7 mmHg TV Peak E Velocity 67.0 cm/s PV Peak Velocity 94.0 cm/s FINDINGS Left Ventricle Normal left ventricular size and systolic function, EF55%. No regional wall motion abnormalities. Right Ventricle The right ventricle is normal in size and function. Right Atrium The right atrium is normal in size. Left Atrium Mildly increased left atrial size. Mitral Valve Mild mitral annular calcification. Aortic Valve No gross abnormalities noted Tricuspid Valve No gross abnormalities noted Pulmonic Valve Pulmonic valve not well visualized. Pericardium No pericardial effusion. Aorta Normal ascending aorta dimension. IVC The inferior vena cava appears normal. CONCLUSIONS Normal left ventricular size and systolic function, EF55%. No regional wall motion abnormalities. Mildly increased left atrial size. Mild mitral annular calcification. There is no pericardial effusion. There are no intracardiac masses. Compared to the study from 07/21/2018, there is improvement in the LV ejection fraction from 45- 50% to 55% Dr Wellington Rene MD [facility] (Electronically Signed) Final Date: 05 Dec 2024 16:59 S
[2024-12-04] MEDS: regadenoson 0.4 Mg/5 ml Syringe IVP (09:30)
[2024-12-04 09:45] VITALS: BP 133/74; PULSE 49
== END 2024-12-04 07:48 | disposition home or self-care (01) ==
PROVIDERS: PCP Emergency Medicine Emergency Medical Services; Visit Provider Internal Medicine Cardiovascular Disease
DX: R06.02 Shortness of breath (principal); R06.09 Other forms of dyspnea; I51.7 Cardiomegaly; I34.81 Nonrheumatic mitral (valve) annulus calcification; R93.1 Abnormal findings on diagnostic imaging of heart and coronary circulation
CPT/HCPCS: 36415; 78452; 93017; 93306; 96374; A9500; J2785